=== PATIENT | male | born 1950 | race Caucasian/White ===

== ENCOUNTER 2023-10-11 11:48 | Outpatient (CLI) | payer MEDICARE, SELFPAY ==
[2023-10-11 12:25] LABS: Basophils Absolute Auto 0.1 K/mm3 (0.0-0.1); Basophils Percent Auto 0.8 % (0.2-1.2); Eosinophils Absolute Auto 0.2 K/mm3 (0-0.3); Eosinophils Percent Auto 1.8 % (0-4.4); Hematocrit 29.5 % (42.0-52.0); Hemoglobin 8.5 g/dL (14.0-18.0); Immature Granulocyte Absolute 0.05 K/mm3 (0.00-0.031); Immature Granulocyte Percent A 0.6 % (0-0.5); Lymphocytes Absolute Auto 1.59 K/mm3 (0.9-3.2); Lymphocytes Percent Auto 18.4 % (18.3-44.2); Mean Corpuscular HGB Conc 28.8 g/dl (32-36); Mean Corpuscular Hemoglobin 19.8 pg (26-34); Mean Corpuscular Volume 68.6 fl (80-100); Mean Platelet Volume 8.5 fl (7.4-10.4); Monocytes Absolute Auto 1.1 K/mm3 (0.1-0.6); Monocytes Percent Auto 12.9 % (2.6-8.5); Neutrophils Absolute Auto 5.7 K/mm3 (1.3-6.7); Neutrophils Percent Auto 65.5 % (45.5-73.1); Platelet Count Result 379 k/mm3 (150-375); Red Cell Distribution Width 17.4 % (11.5-14.5); White Blood Count 8.7 K/mm3 (4.5-10.0)
[2023-10-11 12:54] LABS: Alanine Aminotransferase 41 U/L (6-50); Albumin Level 3.9 g/dL (3.5-5.1); Alkaline Phosphatase 56 U/L (38-126); Anion Gap 6 mmol/L (8-16); Aspartate Amino Transferase 93 U/L (17-59); Bilirubin,Total 0.7 mg/dL (0.2-1.3); Blood Urea Nitrogen 10 mg/dL (9-20); Calcium 8.5 mg/dL (8.4-10.2); Carbon Dioxide 27 mmol/L (22-30); Chloride 90 mmol/L (98-107); Cholesterol 120 mg/dL (0-200); Estimated Glomerular Filt Rate > 60; Glucose 99 mg/dL (65-110); HDL Direct 43 mg/dL; Potassium 4.1 mmol/L (3.4-5.0); Sodium 123 mmol/L (137-145); Triglycerides 44 mg/dL (<150)
[2023-10-11 13:04] LABS: LDL Cholesterol Direct 68 mg/dL
[2023-10-11 13:19] LABS: Iron 28 ug/dL (49-181)
[2023-10-11 13:28] LABS: Percent Iron Saturation 7 % (20-50)
[2023-10-11 13:39] LABS: Anisocytosis 1+ (NORMAL); Hypochromasia 1+ (NORMAL); Poikilocytosis 1+ (NORMAL); Schistocytes None Seen (NORMAL); Target Cells 1+ (NORMAL)
== END 2023-10-11 11:49 | disposition home or self-care (01) ==
PROVIDERS: PCP Family Medicine; Visit Provider Family Medicine
DX: D64.9 Anemia, unspecified (principal); I10 Essential (primary) hypertension; E78.2 Mixed hyperlipidemia; R53.1 Weakness
CPT/HCPCS: 36415; 80053; 80061; 83540; 83550; 84443; 85025

== ENCOUNTER 2023-10-12 15:06 | Outpatient (CLI) | payer MEDICARE, SELFPAY ==
[2023-10-12 16:28] LABS: Iron 57 ug/dL (49-181)
[2023-10-12 16:37] LABS: Percent Iron Saturation 14 % (20-50)
== END 2023-10-12 15:07 | disposition home or self-care (01) ==
PROVIDERS: PCP Family Medicine; Visit Provider Family Medicine
DX: D50.0 Iron deficiency anemia secondary to blood loss (chronic) (principal); D64.9 Anemia, unspecified
CPT/HCPCS: 36415; 82728; 83540; 83550

== ENCOUNTER 2023-10-14 15:15 | Inpatient (IN) | payer MEDICARE, SELFPAY ==
[2023-10-14] VITALS (7 sets, daily range): BP systolic 123–155; BP diastolic 58–98; PULSE 86–91; RESP 17–24; TEMP 36.8–36.9; O2SAT 99–100; BMI 28.6
--- NOTE | ~2023-10-14 | US_ITS ---
EXAMINATION:US venous doppler LE BI INDICATION:Positive d-dimer TECHNIQUE: Multiple grayscale, color flow and Doppler images of the right and left lower extremity de ep venous systems were obtained and reviewed. COMPARISON:No prior studies for comparison. FINDINGS: The common femoral, superficial femoral and popliteal veins demonstrate normal respiratory variation, augmentation and compressibility. Color flow is also seen within the posterior tibial, pe roneal, greater saphenous and profunda veins. IMPRESSION: 1: No lower extremity deep venous thrombosis. Reviewed, dictated and finalized at location A. ERN GRADER
--- NOTE | ~2023-10-14 | XR_ITS ---
EXAMINATION: XR chest 1V portable Exam Date/Time: 10/14/2023 15:30 DEPUTY SHERIFF/INVESTIGATOR HISTORY: SOB Comparison: None. RESULT: Lines, tubes, and devices: Electronic device over the right chest, leads terminating over the right upper chest and extending to the right neck out of the [id number]. Lungs and pleura: Moderate diffuse reticular opacities. Streaky bibasilar scar/atelectasis. Cardiomediastinal silhouette: Unremarkable. Other: No acute osseous or upper abdominal finding. IMPRESSION: Moderate initial edema. Reviewed, dictated and finalized at location K. TY SHERIFF/INVESTIGATOR IMPRESSION: Moderate initial edema.
--- NOTE | 2023-10-14 15:21 | ECG_ITS ---
Measurements Intervals [place] Rate: 92 P: 50 VT: 183 QRS: 12 QRSD: 118 T: 74 QT: 370 QTc: 460 Interpretive Statements SINUS RHYTHM POSSIBLE LEFT ATRIAL ENLARGEMENT [-0.1mV P WAVE IN V1/V2] MODERATE INTRAVENTRICULAR CONDUCTION DELAY [110+ ms QRS DURATION] ABNORMAL ECG NO PREVIOUS ECG AVAILABLE FOR COMPARISON Electronically Signed On 10-15-2023 12:39:49 VINEYARDIST by Yaw Torres M.D.
--- NOTE | 2023-10-14 15:42 | ED.SOB ---
HPI - SOB/Dyspnea General Chief Complaint: Shortness of Breath/Dyspnea Stated Complaint: SOB, anemic Time Seen by Provider: 10/14/23 15:31 History of Present Illness HPI Narrative: Patient is a 73-year-old male history of hyponatremia, peptic ulcer disease, anemia here with shortness of breath. Patient states that he has been having exertional shortness of breath for the last 4 days. He notes that it seems to be worsening and specifically noted today that when he was walking up a flight of stairs to go to a [employer] service he became quite winded. He denies any associated chest pain, nausea, diaphoresis. He does note some occasional lightheadedness when he was getting Dyspneic today. He denies any lower extremity swelling. No history of PE or DVT. No prior cardiac history. He does note that he has been struggling with a persistent cough for about the last 8 weeks after a viral illness that both him and his experienced. He does not believe that this has significantly worsened over the last 4 days. Denies any associated diarrhea or nasal congestion. Of note he additionally is concerned that his sodium may be low. He notes that he is supposed to be on his water restriction diet however he believes he has been drinking too much water recently. He is additionally requesting a repeat upper GI series because he is due for 1 outpatient. He denies any current dark stools or blood in his stool. Related Data Home Medications Medication Instructions Recorded Confirmed lisinopril 5 mg tablet 5 mg PO DAILY 09/18/23 10/12/23 tadalafil 2.5 mg tablet (Cialis) 2.5 mg PO DAILY 09/18/23 10/12/23 Allergies Allergy/AdvReac Type Severity Reaction Status Date / Time No Known Allergies Allergy Verified 10/14/23 15:46 Review of Systems Review of Systems: All systems reviewed & are unremarkable except as noted in HPI and below [facility] Past Medical History Medical History Barretts esophagus GI bleed due to NSAIDs Hydrocele Surgical History Surgical History H/O sinus surgery Hx of appendectomy S/P repair of hydrocele Family History Family History Father Lung cancer Mother Stomach cancer Social History Social History Social History: Smoking status: Never smoker Second hand tobacco smoke exposure: No Alcohol intake: current Drinks per week: 3 Substance use: never Substance use type: does not use Lack of Transportation: No Lack of Food: Never True Current Housing: I Have Housing Concerned About Future Housing: No Difficulty Paying Gas/Electric Bills: No Difficulty Paying for Meds: No Currently Unemployed: YES Education: Master's Degree or Higher Difficulty w/ Childcare or Family Care: No Living arrangements: with family Occupation/Education: retired Gender identity (if verbalized by the patient): Male Sexual Orientation (if Verbalized by the Patient): Straight or Heterosexual Exam Narrative: GENERAL: Well-appearing, well-nourished, and in no acute distress. HEAD: Normocephalic, atraumatic. EYES: PERRLA and EOMI. ENT: Nares clear. Mucous membranes moist. NECK: Supple. CHEST: Clear to auscultation. No respiratory distress. HEART: Regular rate and rhythm. Normal peripheral pulses. ABDOMEN: Soft, nontender, nondistended. EXTREMITIES: Normal range of motion. No edema. SKIN: Warm, dry, no rash. NEURO: No focal deficits. Alert and oriented x3. PSYCH: Normal mood and affect. Course Course Emergency Course: Chart review performed. He is here for SOB x 4 days. He had an office visit with his PCP on 10/12/23. They noted history of hyponatremia, anemia. He had a hospitalization in August in [place] for anemia and NSAID induced gastric
[2023-10-14 15:51] LABS: Basophils Absolute Auto 0.1 K/mm3 (0.0-0.1); Eosinophils Absolute Auto 0.1 K/mm3 (0-0.3); Eosinophils Percent Auto 1.6 % (0-4.4); Hemoglobin 8.3 g/dL (14.0-18.0); Immature Granulocyte Absolute 0.03 K/mm3 (0.00-0.031); Immature Granulocyte Percent A 0.4 % (0-0.5); Lymphocytes Absolute Auto 1.58 K/mm3 (0.9-3.2); Lymphocytes Percent Auto 21.7 % (18.3-44.2); Mean Corpuscular HGB Conc 28.6 g/dl (32-36); Mean Corpuscular Hemoglobin 19.9 pg (26-34); Mean Corpuscular Volume 69.4 fl (80-100); Mean Platelet Volume 8.5 fl (7.4-10.4); Monocytes Percent Auto 13.9 % (2.6-8.5); Neutrophils Absolute Auto 4.5 K/mm3 (1.3-6.7); Neutrophils Percent Auto 61.4 % (45.5-73.1); Platelet Count Result 369 k/mm3 (150-375); Red Blood Count 4.18 M/mm3 (4.6-6.20); Red Cell Distribution Width 18.2 % (11.5-14.5); White Blood Count 7.3 K/mm3 (4.5-10.0)
[2023-10-14 16:01] LABS: Alanine Aminotransferase 32 U/L (6-50); Albumin Level 3.9 g/dL (3.5-5.1); Alkaline Phosphatase 51 U/L (38-126); Anion Gap 8 mmol/L (8-16); Aspartate Amino Transferase 43 U/L (17-59); Bilirubin,Total 0.5 mg/dL (0.2-1.3); Blood Urea Nitrogen 14 mg/dL (9-20); Calcium 8.6 mg/dL (8.4-10.2); Carbon Dioxide 24 mmol/L (22-30); Chloride 100 mmol/L (98-107); Estimated CRCL calculation 63 ml/min; Estimated Glomerular Filt Rate > 60; Glucose 121 mg/dL (65-110); Potassium 3.9 mmol/L (3.4-5.0); Sodium 132 mmol/L (137-145)
[2023-10-14 16:33] LABS: Anisocytosis 2+ (NORMAL); Hypochromasia 1+ (NORMAL); Platelet Estimate Adequate (Adequate); Schistocytes None Seen (NORMAL)
[2023-10-14 16:39] LABS: NT Pro B Type Natriuretic Pept 1040 pg/mL (19.9-100); Troponin I 0.041 ng/mL (0.000-0.034)
[2023-10-14] MEDS: ASPIRIN 81 MG CHEWABLE TABLET 324 MG PO (17:10)
[2023-10-14 17:24] LABS: Influenza A QL RT-PCR Negative (Negative); Influenza B QL RT-PCR Negative (Negative); RSV RNA, RT-PCR Negative (Negative); SARS-CoV-2 RNA PCR Negative (Negative)
[2023-10-14 17:56] LABS: D Dimer 0.75 ug/mL (<0.48)
--- NOTE | 2023-10-14 18:56 | ECG_ITS ---
Measurements Intervals [place] Rate: 83 P: 44 KS: 179 QRS: 6 QRSD: 113 T: 61 QT: 383 QTc: 452 Interpretive Statements SINUS RHYTHM POSSIBLE LEFT ATRIAL ENLARGEMENT [-0.1mV P WAVE IN V1/V2] MODERATE INTRAVENTRICULAR CONDUCTION DELAY [110+ ms QRS DURATION] ABNORMAL ECG COMPARED TO ECG 10/14/2023 15:27:30 NO SIGNIFICANT CHANGES Electronically Signed On 10-15-2023 12:43:22 DEAN by Yaw Torres M.D.
--- NOTE | 2023-10-14 19:16 | PC.NURSE ---
Assumed care of pt from JAMSHID Barber at this time.
[2023-10-14 19:40] LABS: Troponin I 0.043 ng/mL (0.000-0.034)
--- NOTE | 2023-10-14 21:31 | ADMGEN ---
This patient, Héctor Mary, was admitted to IMU Room 206-02. Patient/family oriented to hospital policies and general routines including ID bracelet, bed and alarms, visiting hours, pain management, procedures, bathroom and other care routines, personal items, smoking policy, room service/diet, and visiting hours. Information on how to activate the Rapid Response Team has been discussed. Patient/Family are encouraged to report perceived risks to care and to ask questions if they do not understand what they are told or what they should do.
--- NOTE | 2023-10-14 23:11 | PM.IMHP ---
H&P: HPI History of Present Illness Date/Time: 10/14/23 23:11 Chief Complaint: Shortness of breath Narrative: This is a 73-year-old male with past medical history significant for peptic ulcer, hyponatremia, Mederos's esophagus, NSAID use, GI bleed. Patient presents to the emergency room due to shortness of breath with activity, a states that he is very healthy drinks 2 gal of water daily and takes fiber with his meals to induce loose stools. Has had hyponatremia in the past which has been monitor by his primary care physician. Patient with recent workup for GI bleed. Preliminary workup was significant for hemoglobin of 8. Patient denies any hematemesis, coffee-ground emesis, melena, bright red blood per rectum. Preliminary workup was also significant for some mild elevation of troponins. Patient is been placed in observation for further evaluation management and treatment. EXAMINATION:? XR chest 1V portable Exam Date/Time:? 10/14/2023 15:30 NETWORK/TELECOM ENGINEER HISTORY: SOB ? Comparison:? None. RESULT: Lines, tubes, and devices:? Electronic device over the right chest, leads terminating over the right upper chest and extending to the right neck out of the [id number]. Lungs and pleura:? Moderate diffuse reticular opacities. Streaky bibasilar scar/atelectasis. Cardiomediastinal silhouette:? Unremarkable. Other:? No acute osseous or upper abdominal finding. ? IMPRESSION: Moderate initial edema. Review of Systems Review of Systems: Shortness of breath Constitutional: Constitutional: Denies chills, Reports fatigue, Denies fever(s), Denies frequent falls, Denies malaise, Denies poor appetite and Reports weakness Eyes: Eyes: Denies change in vision ENT: Denies dysphagia and Denies odynophagia Cardiovascular: Cardiovascular: Denies chest pain, Denies radiating jaw, neck or arm pain, Denies palpitations and Reports dyspnea Respiratory: Respiratory: Denies cough Gastrointestinal: Gastrointestinal: Denies abdominal pain, Denies dyspepsia, Reports loose stools, Denies nausea and Denies vomiting Genitourinary: Genitourinary: Denies dysuria Musculoskeletal: Musculoskeletal: Denies arthralgias and Denies limited range of motion Integumentary/Breasts: Skin/Breast: Denies rash Neurologic: Denies focal weakness and Denies Sensory deficit (Neuro) Psychiatric: Psychiatric: Reports no additional psychiatric complaints and Reports as per HPI Endocrine: Endocrine: Denies cold intolerance, Denies fatigue, Denies flushing, Denies heat intolerance, Denies polyphagia, Denies polydipsia and Denies palpitations Hematologic/Lymphatic: Hematologic/Lymphatic: Reports no additional hematologic/lymphatic complaints and Reports as per HPI Allergic/Immunologic: Allergic/Immunologic: Reports no additional allergic/immunologic complaints and Reports as per HPI PMFSH Past Medical History Medical History Barretts esophagus GI bleed due to NSAIDs Hydrocele Surgical History Surgical History H/O sinus surgery Hx of appendectomy S/P repair of hydrocele Family History Family History (Updated 10/14/23 @ 22:12 by Lilliana Jackson RN) Father Lung cancer Heart attack Mother Stomach cancer Social History Social History Social History: Smoking packs per day: 2 Smoking cigarettes per day: 40.0 Years smoked: 16 Smoking pack-years: 32.00 Smoking status: Former smoker Tobacco type: cigarettes Second hand tobacco smoke exposure: No Alcohol intake: current Drinks per week: 5 Substance use: never Substance use type: does not use Lack of Transportation: No Lack of Food: Never True Current Housing: I Have Housing Concerned About Future Housing: No Difficulty Paying Gas/Electric Bills: No Difficulty Paying for Meds: No
[2023-10-15] VITALS (15 sets, daily range): BP systolic 115–143; BP diastolic 59–74; PULSE 78–95; RESP 16–20; TEMP 36.4–36.9; O2SAT 97–98
--- NOTE | 2023-10-15 | ECHO_ITS ---
Patient Info Name: Héctor Mary Age: 73 years : 1950 Gender: Male Ht: 66 in Wt: 177 lbs BSA: 1.95 m2 HR: 83 bpm BP: 126 / 66 mmHg Heart Rhythm: Sinus Rhythm Technical Quality: Fair Exam Date: 10/15/2023 8:14 AM Exam Location: Echo Lab Patient Status: Inpatient Admit Date: 10/14/2023 Staff Ordering Physician: Delroy Medrano MD Coremaker Experimental: Gillian Ashraf RDCS Attending Provider: Gordo Watkins MD Referring Physician: Marcela DE LOS SANTOS; Exam Type: CA echo doppler color flow Study Info Indications - ELEVATED BNP Complete two-dimensional, color flow and Doppler transthoracic echocardiogram is performed. Summary 1. Complete two-dimensional, color flow and Doppler transthoracic echocardiogram is performed. 2. Left ventricular systolic function is moderately reduced, estimated at 40%. 3. Left ventricular chamber dimension is mildly enlarged. 4. There is mildly increased left ventricular wall thickness. 5. The left ventricular diastolic function is abnormal. 6. Left atrial chamber dimension is mildly enlarged. 7. There is mild aortic valve regurgitation. 8. There is mild aortic valve calcification. 9. There is mild mitral valve regurgitation. 10. There is mild tricuspid valve regurgitation. Left Ventricle Left ventricular systolic function is moderately reduced, estimated at 40%. Left ventricular chamber dimension is mildly enlarged. There is mildly increased left ventricular wall thickness. The left ventricular diastolic function is abnormal. Right Ventricle Right ventricular chamber dimension is normal. Right ventricular systolic function is normal. Left Atria Left atrial chamber dimension is mildly enlarged. Right Atria Right atrial chamber dimension is normal. Atrial Septum Intact interatrial septum visualized by color flow imaging. Aortic Valve The aortic valve is trileaflet. There is mild aortic valve sclerosis. There is no aortic valve stenosis. There is mild aortic valve regurgitation. There is mild aortic valve calcification. Pulmonic Valve The pulmonic valve is normal. There is no pulmonic valve stenosis. There is trace pulmonic regurgitation. Mitral Valve The mitral valve has thickened leaflets. There is no mitral valve stenosis. There is mild mitral valve regurgitation. Tricuspid Valve The tricuspid valve leaflets are normal. There is no significant tricuspid valve stenosis. There is mild tricuspid valve regurgitation. No pulmonary hypertension, estimated pulmonary arterial systolic pressure is 28 mmHg. Pericardium/Pleural There is trivial pericardial effusion. Inferior Vena Cava Normal inferior vena cava with <50% collapse upon inspiration consistent with elevated right atrial pressure, 10 mmHg. Aorta The aortic root size at the sinus of Valsalva is normal. Left Ventricular Outflow Tract Name Value Normal LVOT 2D LVOT Diameter 2.2 cm LVOT Doppler LVOT Peak Gradient 3 mmHg LVOT Mean Gradient 1 mmHg LVOT VTI 15 cm LVOT VTI/AV VTI Ratio 0.6 LVOT Stroke Volume 57 ml
[2023-10-15 01:29] LABS: Troponin I 0.049 ng/mL (0.000-0.034)
[2023-10-15] MEDS: traZODone HCL 50 MG TABLET PO ×2 (02:52→20:33)
[2023-10-15 08:08] LABS: Anion Gap 6 mmol/L (8-16); Blood Urea Nitrogen 15 mg/dL (9-20); Calcium 8.7 mg/dL (8.4-10.2); Carbon Dioxide 25 mmol/L (22-30); Chloride 101 mmol/L (98-107); Estimated CRCL calculation 59 ml/min; Estimated Glomerular Filt Rate > 60; Glucose 92 mg/dL (65-110); Potassium 4.1 mmol/L (3.4-5.0); Sodium 132 mmol/L (137-145)
[2023-10-15] MEDS: PANTOPRAZOLE 40 MG TABLET PO (09:17)
--- NOTE | 2023-10-15 14:05 | PM.IMPN ---
Progress Note: A&P Assessment and Plan (1) New onset of congestive heart failure: Code(s): I50.9 - Heart failure, unspecified Status: Acute Assessment and Plan: Patient presents with SOB. CXR showing pulmonary edema. BNP 1040. TSH normal. Troponin mildly elevated but flat and had past stress test that was normal No Lasix given. Echo showing EF 40% with diastolic dysfunction. Etiology unclear: viral? coronary disease? chronic anemia? Start Lasix. Cardiology consult. Start entresto and metoprolol (2) Elevated troponin: Code(s): R79.89 - Other specified abnormal findings of blood chemistry Status: Acute Assessment and Plan: Mildly elevated Troponin and flat. EKG showing NSR, possible LAE and moderate IVCD. Obtain copy of old stress test (3) Anemia: Qualifiers: Anemia type: iron deficiency Iron deficiency anemia type: chronic blood loss Qualified Code(s): D50.0 - Iron deficiency anemia secondary to blood loss (chronic) Code(s): D64.9 - Anemia, unspecified Status: Acute Assessment and Plan: Patient with history of peptic ulcer and GI bleed in the past. Hgb 8.5 a few days ago and about the same on admission. No prior HH to compare Unclear if chronic stable anemia or Hgb dropping recently. He has hx of PUD but compliant with PPI. Iron studies 10/11 showing low iron, TSat and ferritin. Repeat HH today. Continue iron supplement. Check b12/folate GI consulted (4) D-dimer, elevated: Code(s): R79.89 - Other specified abnormal findings of blood chemistry Status: Acute Assessment and Plan: DDimer ordered and was elevated. No further workup performed. Will proceed with doppler of the LE and consider CTA but more likely diagnosis is CHF (5) Hyponatremia: Code(s): E87.1 - Hypo-osmolality and hyponatremia Status: Acute Assessment and Plan: Na 123 a few days ago but now 132 on admission. He is on NaCl tablets per family Could be related to the CHF Check urine Na and Cr Hold on resuming NaCl tablets (6) PUD (peptic ulcer disease): Code(s): K27.9 - Peptic ulcer, site unspecified, unspecified as acute or chronic, without hemorrhage or perforation Status: Acute Assessment and Plan: hx of PUD. Continue PPI (7) Barretts esophagus: Qualifiers: Mederos's esophagus type: without dysplasia Qualified Code(s): K22.70 - Mederos's esophagus without dysplasia Code(s): K22.70 - Mederos's esophagus without dysplasia Status: Acute Assessment and Plan: Follow-up with GI in the outpatient setting Plan DVT Prophylaxis - SCD Code status - Full Subjective Date/time seen: 10/15/23 14:05 Interval history: 73yo male with hx of PUD, hyponatremia and Mederos's esophagus here for SOB. He denies CP or SOB. Having MERCEDES. No hx of CAD or CHF. No weight changes. Stress test and echo normal within last 2 years. Stools dark from iron but no hematochezia. Exam Narrative: AF 98.1 143/74 86 20 97% ra Gen - NARD Chest - bibasilar crackles. nml RR CV - RRR S1/S2 Abd - Soft, NT/ND, Positive BS Ext - trace pedal edema Psych - Nml mood and affect Skin - Warm and dry Objective Data Vital Signs Vital Signs: Vital Signs - 24 hr 10/14/23 15:24 10/14/23 15:41 10/14/23 15:41 Temperature 98.2 F Pulse Rate 91 91 Respiratory Rate 17 Blood Pressure 155/87 H Pulse Oximetry 100 100 Oxygen Delivery Room Air 10/14/23 15:41 10/14/23 17:44 10/14/23 18:11 Temperature Pulse Rate 87 86 90 Respiratory Rate 19 19 20 Blood Pressure 133/76 150/98 H 152/91 H Pulse Oximetry 99 100 99 Oxygen Delivery 10/14/23 19:45 10/14/23 21:29 10/14/23 22:00 Temperature 98.4 F Pulse Rate 86 88 87 Respiratory Rate 24 H 18 Blood Pressure 135/84 123/58 L Pulse Oximetry 100 99 Oxygen Delivery 10/14/23 22:00 10/15/23 00:00 10/15/23 00:00 Tem
--- NOTE | 2023-10-15 14:34 | WPDGICN ---
Assessment and Plan Assessment and plan (1) Acute anemia: Code(s): D64.9 - Anemia, unspecified Status: Acute Assessment and Plan: acute on chronic anemia, he says that 1.5 month also required blood transfusion (hgb 6.8) after found to have gastric ulcers, he says that had colonoscopy 6 months ago continue with daily ppi and will do EGD in am to reassess (2) New onset of congestive heart failure: Code(s): I50.9 - Heart failure, unspecified Status: Acute Assessment and Plan: by primary, also due to anemia on medical treatment (3) PUD (peptic ulcer disease): Code(s): K27.9 - Peptic ulcer, site unspecified, unspecified as acute or chronic, without hemorrhage or perforation Status: Acute Assessment and Plan: PPI, no nsaid's egd in am (4) Hyponatremia: Code(s): E87.1 - Hypo-osmolality and hyponatremia Status: Acute Assessment and Plan: monitoring, stable (5) Elevated troponin: Code(s): R79.89 - Other specified abnormal findings of blood chemistry Status: Acute (6) Barretts esophagus: Qualifiers: Mederos's esophagus type: without dysplasia Qualified Code(s): K22.70 - Mederos's esophagus without dysplasia Code(s): K22.70 - Mederos's esophagus without dysplasia Status: Acute Assessment and Plan: egd GI Consult Note Consult date/time: 10/15/23 14:34 Reason for consult: acute on chronic anemia, gastric ulcers HPI: Héctor Mary is a 73 year old male with history significant for peptic ulcer 1.5 month ago (he had EGD at another hospital after generalized weakness and hypotension, found to have gastric ulcers, also required blood transfusion and has been using nexium), hyponatremia, Mederos's esophagus. He came to the emergency room due progressive shortness of breath with activity, also some leg swelling. Hgb here 8, nad 132, bnp 1000, CXR with some edema and diagnosed with new onset CHF and mild elevated troponin. He denies obvious GIB, no abdominal pain. Had colonoscopy about 6 months ago and was told to come back after 3 years (mother h/o gastric cancer). Review of Systems Constitutional: Constitutional: Reports fatigue Eyes: Eyes: Denies blurry vision ENT: Reports Normal hearing present Cardiovascular: Cardiovascular: Denies chest pain and Reports pedal edema Respiratory: Respiratory: Reports dyspnea on exertion Gastrointestinal: Gastrointestinal: Denies abdominal pain and Denies nausea Genitourinary: Genitourinary: Denies hematuria Musculoskeletal: Musculoskeletal: Denies neck pain Integumentary/Breasts: Skin/Breast: Denies rash Neurologic: Denies Abnormal speech present Psychiatric: Psychiatric: Denies behavioral changes [facility] Past Medical History Medical History Barretts esophagus GI bleed due to NSAIDs Hydrocele Surgical History Surgical History H/O sinus surgery Hx of appendectomy S/P repair of hydrocele Family History Family History (Updated 10/14/23 @ 22:12 by Lilliana Jackson RN) Father Lung cancer Heart attack Mother Stomach cancer Social History Social History Social History: Smoking packs per day: 2 Smoking cigarettes per day: 40.0 Years smoked: 16 Smoking pack-years: 32.00 Smoking status: Former smoker Tobacco type: cigarettes Second hand tobacco smoke exposure: No Alcohol intake: current Drinks per week: 5 Substance use: never Substance use type: does not use Lack of Transportation: No Lack of Food: Never True Current Housing: I Have Housing Concerned About Future Housing: No Difficulty Paying Gas/Electric Bills: No Difficulty Paying for Meds: No Currently Unemployed: No Education: Master's Degree or Higher Difficulty w/ C
[2023-10-15] MEDS: FUROSEMIDE INJ 40 MG/4 ML VIAL 20 MG IV PUSH (16:05)
--- NOTE | 2023-10-15 16:44 | PM.CNCAR ---
Assessment and Plan Assessment and plan (1) Left ventricular dysfunction with reduced left ventricular function: Code(s): I51.89 - Other ill-defined heart diseases Status: Acute Plan This is a 73-year-old man with longstanding hypertension had previously done an BRYAN-inhibitor. He recently developed significant anemia presumably from gastric ulcer disease been placed on appropriate medical therapy he still is experiencing shortness of breath and was hospitalized for further evaluation. He still is significantly anemic which certainly could explain exertional dyspnea. He is not in any overt decompensated heart failure at this time by physical exam. Echocardiogram does demonstrate some LV enlargement and moderate systolic dysfunction. He has been started on Entresto for this. To complete guideline directed medical therapy I will transition his beta-josiah to metoprolol succinate and start spironolactone. At this point I do not wish to pursue an ischemic evaluation since he is significantly anemic and that appears to be the principal problem at this time. He did indicate that [place] [facility] [facility] had him do a Lexiscan nuclear stress test approximately a year ago which was by his recollection unremarkable. Will follow him with you in the hospital and after discharge to assess his response to medical therapy and once his anemia is recovered we will consider whether or not recurrent ischemia evaluation is indicated. Channing Tyler MD [facility] History of Present Illness History of Present Illness Consult date/time: 10/15/23 16:44 Reason For Visit: New Onset CHF/Elevated Troponin Narrative: This is a 73 old man that I am seeing this evening at the request of the hospitalist because of left ventricular systolic dysfunction. The patient is unknown to me prior to this encounter he recently became established with medical care here having moved here from the [facility]. Apparently he has a history of hypertension but otherwise no specific cardiac problems. He says for a number of years his hypertension has been managed with lisinopril with good control. He states that recently in August he was hospitalized up in the [place] area at [facility] with symptomatic anemia and the diagnosis was gastric ulcer disease with relatively severe anemia. He did receive a red cell transfusion and was placed on proton pump inhibitor therapy. . He recently moved to the [facility] and became established with primary care here. He was told on Sunday that he was still significantly anemic and over the weekend he came into the hospital because of persistent exertional shortness of breath. He is not having any chest pain orthopnea PND or edema. His hemoglobin here is still low at 8.3 with microcytic indices. He does not notice any overt bleeding. He was seen by Gastroenterology life skills consultant was planning on follow-up upper endoscopy tomorrow. An echocardiogram was done in this setting which demonstrated modest LV enlargement with moderate systolic dysfunction with an ejection fraction of 40%. Because of that I was asked to see him in consultation. Review of Systems Constitutional: Constitutional: Reports no additional constitutional complaints Eyes: Eyes: Reports no additional eye complaints ENT: Reports system reviewed and no additional complaints, except as documented Cardiovascular: Cardiovascular: Reports as per HPI Respiratory: Respiratory: Reports dyspnea on exertion Gastrointestinal: Gastrointestinal: Reports no additional gastrointestinal complaints Musculoskeletal: Musculoskeletal: Reports no additional musculoskeletal complaints Integumentary/Breasts: Skin/Breast: Reports system reviewed and no additional complaints, except as docu Neurologic: Reports system reviewed and no additional complaints, except as documented Endocrine: Endocrine: Reports no additional endocrine c
[2023-10-15 17:23] LABS: Sodium Urine Random 127 meq/L
[2023-10-15] MEDS: FUROSEMIDE INJ 40 MG/4 ML VIAL IV PUSH (18:15)
[2023-10-15] MEDS: SACUBITRIL/VALSARTAN 24-26 MG TABLET 1 TAB PO (20:32)
[2023-10-15] MEDS: ACETAMINOPHEN 325 MG TABLET 650 MG PO (20:33)
[2023-10-15 21:12] LABS: Hematocrit 32.8 % (42.0-52.0); Hemoglobin 9.3 g/dL (14.0-18.0)
[2023-10-15 23:06] LABS: Folic Acid 18.9 ng/mL (2.76->20)
[2023-10-16] VITALS (21 sets, daily range): BP systolic 74–127; BP diastolic 42–81; PULSE 68–92; RESP 16–18; TEMP 36.3–37.2; O2SAT 95–100
[2023-10-16 05:41] LABS: Basophils Absolute Auto 0.1 K/mm3 (0.0-0.1); Basophils Percent Auto 1.2 % (0.2-1.2); Eosinophils Absolute Auto 0.2 K/mm3 (0-0.3); Eosinophils Percent Auto 2.3 % (0-4.4); Hematocrit 30.4 % (42.0-52.0); Hemoglobin 8.8 g/dL (14.0-18.0); Immature Granulocyte Absolute 0.03 K/mm3 (0.00-0.031); Immature Granulocyte Percent A 0.4 % (0-0.5); Lymphocytes Absolute Auto 1.72 K/mm3 (0.9-3.2); Lymphocytes Percent Auto 25.2 % (18.3-44.2); Mean Corpuscular HGB Conc 28.9 g/dl (32-36); Mean Corpuscular Hemoglobin 20.2 pg (26-34); Mean Corpuscular Volume 69.7 fl (80-100); Mean Platelet Volume 9.2 fl (7.4-10.4); Monocytes Absolute Auto 1.1 K/mm3 (0.1-0.6); Monocytes Percent Auto 16.3 % (2.6-8.5); Neutrophils Absolute Auto 3.7 K/mm3 (1.3-6.7); Neutrophils Percent Auto 54.6 % (45.5-73.1); Platelet Count Result 427 k/mm3 (150-375); Red Blood Count 4.36 M/mm3 (4.6-6.20); Red Cell Distribution Width 18.5 % (11.5-14.5); White Blood Count 6.8 K/mm3 (4.5-10.0)
[2023-10-16 05:54] LABS: Alanine Aminotransferase 27 U/L (6-50); Albumin Level 3.8 g/dL (3.5-5.1); Alkaline Phosphatase 55 U/L (38-126); Anion Gap 8 mmol/L (8-16); Aspartate Amino Transferase 36 U/L (17-59); Bilirubin,Total 0.6 mg/dL (0.2-1.3); Blood Urea Nitrogen 15 mg/dL (9-20); Calcium 8.5 mg/dL (8.4-10.2); Carbon Dioxide 26 mmol/L (22-30); Chloride 98 mmol/L (98-107); Estimated CRCL calculation 59 ml/min; Estimated Glomerular Filt Rate > 60; Glucose 97 mg/dL (65-110); Magnesium 2.1 mg/dL (1.6-2.3); Phosphorus 3.8 mg/dL (2.5-4.5); Potassium 3.4 mmol/L (3.4-5.0); Sodium 132 mmol/L (137-145)
[2023-10-16 06:10] LABS: Platelet Estimate Increased (Adequate)
[2023-10-16 06:11] LABS: Anisocytosis 1+ (NORMAL); Hypochromasia 1+ (NORMAL); Ovalocytes 1+ (NORMAL); Poikilocytosis 1+ (NORMAL); Schistocytes None Seen (NORMAL)
--- NOTE | 2023-10-16 09:32 | P.CDI_ITS ---
CDI Query Clarification Request CHF noted in the assessment and plan. Pulmonary edema noted on the chest xray. Patient receiving Lasix, Entresto and Metoprolol. Edema noted in the documentation. Please specify type and acuity of heart failure if known. * Acute * Chronic * Acute on Chronic * Unknown * Systolic * Diastolic * Combined Systolic and Diastolic * Unknown
--- NOTE | 2023-10-16 09:32 | WPDCDIQUERY2 ---
CDI Query Clarification Request CHF noted in the assessment and plan. Pulmonary edema noted on the chest xray. Patient receiving Lasix, Entresto and Metoprolol. Edema noted in the documentation. Please specify type and acuity of heart failure if known. Acute Chronic Acute on Chronic Unknown Systolic Diastolic Combined Systolic and Diastolic Unknown
[2023-10-16] MEDS: FERROUS SULFATE 325 MG TABLET DR PO (10:30)
[2023-10-16] MEDS: SPIRONOLACTONE 25 MG TABLET PO (10:30)
[2023-10-16] MEDS: PANTOPRAZOLE 40 MG TABLET PO (10:30)
[2023-10-16] MEDS: POTASSIUM CHLORIDE 20 MEQ ER TABLET 40 MEQ PO (10:30)
[2023-10-16] MEDS: EMPAGLIFLOZIN 10 MG TABLET PO (10:30)
[2023-10-16] MEDS: SACUBITRIL/VALSARTAN 24-26 MG TABLET 1 TAB PO ×2 (10:30→20:53)
[2023-10-16] MEDS: METOPROLOL SUCCINATE EXT REL 25 MG TABCR PO (10:31)
[2023-10-16] MEDS: FUROSEMIDE INJ 40 MG/4 ML VIAL IV PUSH ×2 (10:31→16:47)
[2023-10-16] MEDS: ACETAMINOPHEN 325 MG TABLET 650 MG PO ×2 (10:35→18:50)
[2023-10-16] MEDS: FLUTICASONE PROPIONATE 0.05% NA SPR 16 GM BTL (*BKC) 2 SPRAY NASAL (12:21)
[2023-10-16] MEDS: LACTATED RINGERS 1,000 ML 150 ML IV CONT (12:49)
--- NOTE | 2023-10-16 13:27 | WPDANESEPPF ---
Anes - Initial Pre Proc Eval Procedure: Operation Date: 10/16/23 14:00 Proposed Procedures p Esophagogastroduodenoscopy - Andre Bardales MD Date/Time: 10/16/23 13:27 Surgeon: Quan Watkins MD Pre Op Diagnosis: New Onset CHF/Elevated Troponin Patient Data Age: 73 Gender: M Height: 1.68 m Weight: 79.5 kg Last Vital Signs Temp 97.5 F L 10/16/23 12:48 Pulse 78 10/16/23 12:48 Resp 18 10/16/23 12:48 BP 111/81 10/16/23 12:48 Pulse Ox 99 10/16/23 12:48 O2 Del Method Room Air 10/16/23 12:48 Allergies Allergy/AdvReac Type Severity Reaction Status Date / Time No Known Allergies Allergy Verified 10/14/23 15:46 Home Medications Medication Instructions Recorded Confirmed Type tadalafil 2.5 mg tablet (Cialis) 2.5 mg PO HS 09/18/23 10/15/23 History esomeprazole magnesium 40 mg 40 mg PO DAILY 10/14/23 10/14/23 History capsule,delayed release (Nexium) ferrous sulfate 325 mg (65 mg 325 mg PO BID 10/15/23 10/15/23 History iron) tablet sodium chloride 1,000 mg soluble 2,000 mg BID 10/15/23 10/15/23 History tablet Laboratory Tests 10/15/23 10/15/23 10/16/23 17:03 20:27 04:59 WBC 6.8 K/mm3 (4.5-10.0) RBC 4.36 L M/mm3 (4.6-6.20) Hgb 9.3 L g/dL 8.8 L g/dL (14.0-18.0) (14.0-18.0) Hct 32.8 L % 30.4 L % (42.0-52.0) (42.0-52.0) MCV 69.7 L fl (80-100) MCH 20.2 L pg (26-34) MCHC 28.9 L g/dl (32-36) RDW 18.5 H % (11.5-14.5) Plt Count 427 H k/mm3 (150-375) MPV 9.2 fl (7.4-10.4) Immature Gran % (Auto) 0.4 % (0-0.5) Neut % (Auto) 54.6 % (45.5-73.1) Lymph % (Auto) 25.2 % (18.3-44.2) [place] % (Auto) 16.3 H % (2.6-8.5) Eos % (Auto) 2.3 % (0-4.4) Baso % (Auto) 1.2 % (0.2-1.2) Lymph # (Auto) 1.72 K/mm3 (0.9-3.2) [place] # (Auto) 1.1 H K/mm3 (0.1-0.6) Eos # (Auto) 0.2 K/mm3 (0-0.3) Baso # (Auto) 0.1 K/mm3 (0.0-0.1) Abs Immat Gran (auto) 0.03 K/mm3 (0.00-0.031) Absolute Neuts (auto) 3.7 K/mm3 (1.3-6.7) Absolute Nucleated RBC 0.0 K/mm3 (0.0-0.012) Nucleated RBC % 0.0 % (0.0-0.2) Platelet Estimate Increased (Adequate) Hypochromasia 1+ (NORMAL) Poikilocytosis 1+ (NORMAL) Anisocytosis 1+ (NORMAL) Ovalocytes 1+ (NORMAL) Schistocytes None seen (NORMAL) Sodium 132 L mmol/L (137-145) Potassium 3.4 mmol/L (3.4-5.0) Chloride 98 mmol/L (98-107) Carbon Dioxide 26 mmol/L (22-30) Anion Gap 8 mmol/L (8-16) BUN 15 mg/dL (9-20) Creatinine 0.90 mg/dL (0.7-1.3) Estim Creat Clear Calc 59 ml/min Estimated GFR > 60 (59 - ) Glucose 97 mg/dL (65-110) Calcium 8.5 mg/dL (8.4-10.2) Phosphorus 3.8 mg/dL (2.5-4.5) Magnesium 2.1 mg/dL (1.6-2.3) Total Bilirubin 0.6 mg/dL (0.2-1.3) AST 36 U/L (17-59) ALT 27 U/L (6-50) Alkaline Phosphatase 55 U/L (38-126) Total Protein 6.0 L g/dL (6.3-8.2) Albumin 3.8 g/dL (3.5-5.1) Vitamin B12 610.0 pg/mL (239-931) Folate 18.9 ng/mL (2.76->20) Ur Random Sodium 127 meq/L Urine Creatinine 22.0 mg/dL Patient hx anesthesia problems: none Family hx anesthesia problems: none Results Review: All pre-operative results and documents have been reviewed as part of the pre-operative evaluation. [facility] Past Medical History Medical History Barretts esophagus GI bleed due to NSAIDs Hydrocele Surgical History Surgical History H/O sinus surgery Hx of ap
--- NOTE | 2023-10-16 17:09 | PM.IMPN ---
Progress Note: A&P Assessment and Plan (1) New onset of congestive heart failure: Code(s): I50.9 - Heart failure, unspecified Status: Acute Assessment and Plan: Patient presents with SOB. CXR showing pulmonary edema. BNP 1040. TSH normal. Troponin mildly elevated but flat and had past stress test that was normal Echo showing EF 40% with diastolic dysfunction. Etiology of CHF unclear: viral? coronary disease? chronic anemia? Patient with acute systolic and diastolic CHF. Started on lasix, Entresto, Spirolactone and metoprolol Cardiology consulted and appreciate their input Probably change to oral tomorrow. (2) Elevated troponin: Code(s): R79.89 - Other specified abnormal findings of blood chemistry Status: Acute Assessment and Plan: Mildly elevated Troponin and flat. EKG showing NSR, possible LAE and moderate IVCD. Elevated Trop related to CHF. (3) Anemia: Qualifiers: Anemia type: iron deficiency Iron deficiency anemia type: chronic blood loss Qualified Code(s): D50.0 - Iron deficiency anemia secondary to blood loss (chronic) Code(s): D64.9 - Anemia, unspecified Status: Acute Assessment and Plan: Patient with history of peptic ulcer and GI bleed in the past. Hgb 8.5 a few days ago and about the same on admission. No prior HH to compare Unclear if chronic stable anemia or Hgb dropping recently. He has hx of PUD but compliant with PPI. Iron studies 10/11 showing low iron, TSat and ferritin c/w iron deficiency anemia. GI consulted and appreciate their input EGD 10/16: moderate gastritis with erythema, edema and erosive changes. No Mederos's Hgb stable in the 8-9 range Continue iron supplement. (4) D-dimer, elevated: Code(s): R79.89 - Other specified abnormal findings of blood chemistry Status: Acute Assessment and Plan: DDimer ordered and was elevated. No further workup performed. LE venous doppler negative. Consider CTA but more likely diagnosis is CHF (5) Hyponatremia: Code(s): E87.1 - Hypo-osmolality and hyponatremia Status: Acute Assessment and Plan: Na 123 a few days ago but was 132 on admission. He is on NaCl tablets per family but on hold currently Ector 127 but was on lasix which could skew this. Hyponatremia could be related to the CHF Hold on resuming NaCl tablets Check Urine urea levels. Will order fluid restriction (6) PUD (peptic ulcer disease): Code(s): K27.9 - Peptic ulcer, site unspecified, unspecified as acute or chronic, without hemorrhage or perforation Status: Acute Assessment and Plan: hx of PUD. EGD as above Continue PPI (7) Barretts esophagus: Qualifiers: Mederos's esophagus type: without dysplasia Qualified Code(s): K22.70 - Mederos's esophagus without dysplasia Code(s): K22.70 - Mederos's esophagus without dysplasia Status: Acute Assessment and Plan: No evidence of Mederos's by EGD Plan DVT Prophylaxis - SCD Code status - Full Subjective Date/time seen: 10/16/23 17:09 Interval history: 73yo male with hx of PUD, hyponatremia and Mederos's esophagus here for SOB. No MERCEDES when walking to the bathroom. no n/v. No CP. Voiding well. Exam Narrative: AF 97.8 127/68 83 18 99% ra Gen - NARD Chest - few basilar crackles o/w clear. nml RR CV - RRR S1/S2 Abd - Soft, NT/ND, Positive BS Ext - scant pedal edema Psych - Nml mood and affect Skin - Warm and dry Objective Data Vital Signs Vital Signs: Vital Signs - 24 hr 10/15/23 19:53 10/15/23 20:00 10/15/23 22:00 Temperature 98.3 F Pulse Rate 95 90 85 Respiratory Rate 18 Blood Pressure 115/59 L Pulse Oximetry 97 Oxygen Delivery Oxygen Flow Rate 10/15/23 20:00 10/16/23 00:00 10/16/23 00:00 Temperature 98.9 F Pulse Rate 87 82 Respiratory Rate 18 Blood Pressure 119/58 L Pulse Oximetry 98 Oxygen D
[2023-10-16] MEDS: BENZONATATE 100 MG CAPSULE PO (20:53)
[2023-10-16] MEDS: traZODone HCL 50 MG TABLET PO (20:53)
[2023-10-17] VITALS (12 sets, daily range): BP systolic 108–137; BP diastolic 54–81; PULSE 73–90; RESP 18–22; TEMP 36.3–37; O2SAT 96–98
[2023-10-17 05:31] LABS: Hematocrit 38.2 % (42.0-52.0); Hemoglobin 10.9 g/dL (14.0-18.0); Mean Corpuscular HGB Conc 28.5 g/dl (32-36); Mean Platelet Volume 8.6 fl (7.4-10.4); Platelet Count Result 471 k/mm3 (150-375); Red Blood Count 5.46 M/mm3 (4.6-6.20); Red Cell Distribution Width 19.5 % (11.5-14.5); White Blood Count 8.5 K/mm3 (4.5-10.0)
[2023-10-17] MEDS: BENZONATATE 100 MG CAPSULE PO ×2 (05:37→20:56)
[2023-10-17 05:43] LABS: Anion Gap 14 mmol/L (8-16); Blood Urea Nitrogen 22 mg/dL (9-20); Calcium 9.6 mg/dL (8.4-10.2); Carbon Dioxide 25 mmol/L (22-30); Chloride 97 mmol/L (98-107); Estimated CRCL calculation 49 ml/min; Estimated Glomerular Filt Rate > 60; Glucose 109 mg/dL (65-110); Potassium 3.8 mmol/L (3.4-5.0); Sodium 136 mmol/L (137-145)
[2023-10-17] MEDS: FERROUS SULFATE 325 MG TABLET DR PO ×2 (08:32→17:33)
[2023-10-17] MEDS: FUROSEMIDE INJ 40 MG/4 ML VIAL IV PUSH (08:32)
[2023-10-17] MEDS: SPIRONOLACTONE 25 MG TABLET PO (08:32)
[2023-10-17] MEDS: ACETAMINOPHEN 325 MG TABLET 650 MG PO ×2 (08:33→17:33)
[2023-10-17] MEDS: EMPAGLIFLOZIN 10 MG TABLET PO (08:33)
[2023-10-17] MEDS: FLUTICASONE PROPIONATE 0.05% NA SPR 16 GM BTL (*BKC) 2 SPRAY NASAL (08:33)
[2023-10-17] MEDS: METOPROLOL SUCCINATE EXT REL 25 MG TABCR PO (08:33)
[2023-10-17] MEDS: SACUBITRIL/VALSARTAN 24-26 MG TABLET 1 TAB PO ×2 (08:33→20:56)
[2023-10-17] MEDS: PANTOPRAZOLE 40 MG TABLET PO (08:33)
--- NOTE | 2023-10-17 11:55 | PM.PNCARD ---
Progress Note: A&P Assessment and Plan (1) Left ventricular dysfunction with reduced left ventricular function: Code(s): I51.89 - Other ill-defined heart diseases Status: Acute Assessment and Plan: Feeling better. Blood counts have improved. Continue metoprolol, spironolactone, Entresto. Can consider adding Jardiance as an outpatient. He seems to be fairly well compensated at this point. Will reduce his furosemide down to 40 mg IV daily with hopeful ability to transition to p.o. tomorrow. (2) Chronic systolic (congestive) heart failure: Code(s): I50.22 - Chronic systolic (congestive) heart failure Status: Acute Assessment and Plan: Plan as above. Will reduce furosemide (3) Acute anemia: Code(s): D64.9 - Anemia, unspecified Status: Acute Assessment and Plan: Workup in progress. Hemoglobin has improved. (4) Elevated troponin: Code(s): R79.89 - Other specified abnormal findings of blood chemistry Status: Acute Assessment and Plan: Not related to ACS. Likely secondary to CHF Subjective Date/time seen: 10/17/23 11:55 Interval history: 73-year-old admitted for anemia and shortness breath Follow-up note 10/17/2023: Blood counts are better today. He is not short of breath at rest. No swelling. No chest pain Review of Systems Constitutional: Constitutional: Reports no additional constitutional complaints Eyes: Eyes: Reports no additional eye complaints ENT: Reports system reviewed and no additional complaints, except as documented Cardiovascular: Cardiovascular: Reports as per HPI and Reports dyspnea on exertion Respiratory: Respiratory: Reports dyspnea on exertion Gastrointestinal: Gastrointestinal: Reports no additional gastrointestinal complaints Musculoskeletal: Musculoskeletal: Reports no additional musculoskeletal complaints Integumentary/Breasts: Skin/Breast: Reports system reviewed and no additional complaints, except as docu Neurologic: Reports system reviewed and no additional complaints, except as documented Endocrine: Endocrine: Reports no additional endocrine complaints Hematologic/Lymphatic: Hematologic/Lymphatic: Reports no additional hematologic/lymphatic complaints Allergic/Immunologic: Allergic/Immunologic: Reports no additional allergic/immunologic complaints Exam Const: General: comfortable and no acute distress Other: Somewhat anxious white male appearing about his stated age no distress of any kind HENMT: Mouth: Yes moist mucous membranes Eyes: Sclera: sclerae normal Neck: Neck: supple and no JVD Resp: Effort & Inspection: normal respiratory effort Auscultation: clear to auscultation bilaterally Cardio: Rate: regular rate Rhythm: regular rhythm Other: PMI is not displaced first and second heart sounds are normal no discernible gallop or murmur GI: Auscultation: normal bowel sounds Skin: General skin exam: normal color Neuro: Other: Alert and oriented x3 Extrem: Other: No edema, good distal perfusion Psych: Mental Status: mental status grossly normal Objective Data Vital Signs Vital Signs: Vital Signs - 24 hr 10/16/23 12:48 10/16/23 12:00 10/16/23 16:00 Temperature 36.4 C L Pulse Rate 78 92 Respiratory Rate 18 Blood Pressure 111/81 Pulse Oximetry 99 99 Oxygen Delivery Room Air Room Air Oxygen Flow Rate 10/16/23 12:00 10/16/23 14:11 10/16/23 14:21 Temperature 36.4 C L Pulse Rate 78 68 74 Respiratory Rate 16 16 18 Blood Pressure 117/81 74/42 L 102/62 Pulse Oximetry 95 96 98 Oxygen Delivery Nasal Cannula Room Air Oxygen Flow Rate 4 10/16/23 14:31 10/16/23 14:48 10/16/23 16:00 Temperature 36.4 C 36.6 C Pulse Rate 70 70 83 Respiratory Rate 18 16 18 Blood Pressure 105/65 120/80 127/68 Pulse Oximetry 97 100 99 Oxygen Delivery Room Air Oxygen Flow Rate 10/16/23 16:00 10/16/23 18:00 10/16/23 20:18 [facility]
--- NOTE | 2023-10-17 14:13 | PM.IMPN ---
Progress Note: A&P Assessment and Plan (1) New onset of congestive heart failure: Code(s): I50.9 - Heart failure, unspecified Status: Acute Assessment and Plan: Patient presents with SOB. CXR showing pulmonary edema. BNP 1040. TSH normal. Troponin mildly elevated but flat and had past stress test that was normal Echo showing EF 40% with diastolic dysfunction. Etiology of CHF unclear: viral? coronary disease? chronic anemia? Patient with acute systolic and diastolic CHF. Started on lasix, Entresto, Spirolactone and metoprolol Cardiology consulted and appreciate their input Start oral lasix tomorrow (2) Elevated troponin: Code(s): R79.89 - Other specified abnormal findings of blood chemistry Status: Acute Assessment and Plan: Mildly elevated Troponin and flat. EKG showing NSR, possible LAE and moderate IVCD. Elevated Trop related to CHF. (3) Anemia: Qualifiers: Anemia type: iron deficiency Iron deficiency anemia type: chronic blood loss Qualified Code(s): D50.0 - Iron deficiency anemia secondary to blood loss (chronic) Code(s): D64.9 - Anemia, unspecified Status: Acute Assessment and Plan: Patient with history of peptic ulcer and GI bleed in the past. Hgb 8.5 a few days ago and about the same on admission. No prior HH to compare Unclear if chronic stable anemia or Hgb dropping recently. He has hx of PUD but compliant with PPI. Iron studies 10/11 showing low iron, TSat and ferritin c/w iron deficiency anemia. GI consulted and appreciate their input EGD 10/16: moderate gastritis with erythema, edema and erosive changes. No Mederos's Hgb stable in the 8-9 range Continue iron supplement. (4) D-dimer, elevated: Code(s): R79.89 - Other specified abnormal findings of blood chemistry Status: Acute Assessment and Plan: DDimer ordered and was elevated. No further workup performed. LE venous doppler negative. Consider CTA but more likely diagnosis is CHF (5) Hyponatremia: Code(s): E87.1 - Hypo-osmolality and hyponatremia Status: Acute Assessment and Plan: Na 123 a few days ago but was 132 on admission. He is on NaCl tablets per family but on hold currently Ector 127 but was on lasix which could skew this. Hyponatremia could be related to the CHF Resume NaCl tablets (6) PUD (peptic ulcer disease): Code(s): K27.9 - Peptic ulcer, site unspecified, unspecified as acute or chronic, without hemorrhage or perforation Status: Acute Assessment and Plan: hx of PUD. EGD as above Continue PPI (7) Barretts esophagus: Qualifiers: Mederos's esophagus type: without dysplasia Qualified Code(s): K22.70 - Mederos's esophagus without dysplasia Code(s): K22.70 - Mederos's esophagus without dysplasia Status: Acute Assessment and Plan: No evidence of Mederos's by EGD Plan DVT Prophylaxis - SCD Code status - Full Subjective Date/time seen: 10/17/23 14:13 Interval history: 73-year-old male with history of peptic ulcer disease, hyponatremia and Mederos's esophagus here for shortness of breath and currently being treated for heart failure exacerbation. No overnight events noted. No chest pain or shortness of breath. No nausea, vomiting or diarrhea. No fevers or chills. Review of Systems Review of Systems: 12 point review of systems was assessed and was negative except as noted in the HPI Exam Narrative: General: No acute distress, alert and oriented per baseline HEENT: Atraumatic, normocephalic, mucous membranes moist CV: Regular rate and rhythm, S1, S2 Lungs: Clear to auscultation bilaterally, no rales or crackles noted, no wheezes, good air entry Abdomen: Soft, nontender, nondistended Extremities: Normal to inspection Skin: No rashes noted, no lesions or wounds seen Psych: Euthymic, normal affect Objective Data Vit
--- NOTE | 2023-10-17 14:41 | WPDANESPN ---
Anes - Prog Note Post-Op Date/Time: 10/17/23 14:41 Cardiovascular status: normal Respiratory status: normal Airway patency: baseline Mental status: baseline Post-Op hydration status: normal Vital Signs: Last Vital Signs Temp 36.5 C 10/17/23 12:00 Pulse 73 10/17/23 12:00 Resp 18 10/17/23 12:00 BP 114/57 L 10/17/23 12:00 Pulse Ox 98 10/17/23 12:00 O2 Del Method Room Air 10/17/23 12:00 O2 Flow Rate 4 10/16/23 14:11 Pain Score (VAS): 0 I/O: Intake & Output 10/16/23 10/17/23 10/17/23 23:59 07:59 15:59 Intake Total 1190 390 720 Output Total 3750 700 600 Balance -2560 -310 120 Laboratory Tests 10/17/23 05:18 10/17/23 05:18 10/17/23 05:18 WBC 8.5 RBC 5.46 Hgb 10.9 L Hct 38.2 L MCV 70.0 L MCH 20.0 L MCHC 28.5 L RDW 19.5 H Plt Count 471 H MPV 8.6 Sodium 136 L Potassium 3.8 Chloride 97 L Carbon Dioxide 25 Anion Gap 14 BUN 22 H Creatinine 1.10 Estim Creat Clear Calc 49 Estimated GFR > 60 Glucose 109 Calcium 9.6 Post-procedural complaints: none Patient Feedback: Patient satisfied with anesthetic care.
--- NOTE | 2023-10-17 15:05 | WPDGIPROGNO ---
Progress Note: A&P Assessment and Plan (1) Gastritis: Code(s): K29.70 - Gastritis, unspecified, without bleeding Status: Acute Assessment and Plan: no signs of bleeding continue ppi daily good appetite will follow [place] (2) Acute anemia: Code(s): D64.9 - Anemia, unspecified Status: Acute Assessment and Plan: hgb stable he says that had colonoscopy earlier this year follow-up with his pcp and get cbc as outpatient (3) Left ventricular dysfunction with reduced left ventricular function: Code(s): I51.89 - Other ill-defined heart diseases Status: Acute Assessment and Plan: on medical treatment by cardiology and he says that already feeling much better asking when he could go home (4) Hyponatremia: Code(s): E87.1 - Hypo-osmolality and hyponatremia Status: Acute Subjective Date/time seen: 10/17/23 15:05 Interval history: egd showed gastritis,no signs of bleeding overall feeling much better, asking when he can go home Review of Systems Review of Systems: All systems reviewed & are unremarkable except as noted in HPI and below Exam Const: General: comfortable and no acute distress HENMT: Face/Nose/Sinus: Normal nares present Eyes: General: appearance normal, both eyes and all related structures Neck: Neck: supple Resp: Effort & Inspection: normal respiratory effort Auscultation: no wheezes Cardio: Rate: regular rate Rhythm: regular rhythm GI: Inspection: non-distended GI Palp: Yes Soft to palpation and No Tenderness to palpation present (GI) Auscultation: normal bowel sounds Skin: General skin exam: no rashes or lesions noted Neuro: Speech: normal speech Motor exam (neuro): 5/5 motor strength present throughout Extrem: General: normal to inspection Psych: Mental Status: mental status grossly normal Objective Data Vital Signs Vital Signs: Vital Signs - 24 hr 10/16/23 16:00 10/16/23 16:00 10/16/23 16:00 Temperature 97.8 F Pulse Rate 83 86 Respiratory Rate 18 Blood Pressure 127/68 Pulse Oximetry 99 99 Oxygen Delivery Room Air 10/16/23 18:00 10/16/23 20:18 10/16/23 20:00 Temperature 97.3 F L Pulse Rate 84 80 79 Respiratory Rate 18 Blood Pressure 121/64 Pulse Oximetry 96 Oxygen Delivery 10/16/23 22:00 10/16/23 23:08 10/17/23 00:00 Temperature 97.3 F L Pulse Rate 70 84 Respiratory Rate 18 Blood Pressure 126/68 Pulse Oximetry 96 Oxygen Delivery 10/17/23 02:00 10/17/23 04:13 10/17/23 04:00 Temperature 97.3 F L Pulse Rate 76 80 79 Respiratory Rate 18 Blood Pressure 116/60 Pulse Oximetry 96 Oxygen Delivery 10/17/23 06:00 10/17/23 08:00 10/17/23 12:00 Temperature 97.8 F 97.7 F Pulse Rate 74 84 73 Respiratory Rate 18 18 Blood Pressure 108/62 114/57 L Pulse Oximetry 97 98 Oxygen Delivery 10/17/23 08:00 10/17/23 12:00 10/17/23 08:00 Temperature Pulse Rate 90 Respiratory Rate Blood Pressure Pulse Oximetry 98 98 Oxygen Delivery Room Air Room Air 10/17/23 12:00 10/17/23 10:00 10/17/23 14:00 Temperature Pulse Rate 79 84 82 Respiratory Rate Blood Pressure Pulse Oximetry Oxygen Delivery Intake/Output Intake/Output: Intake & Output 10/14/23 10/15/23 10/16/23 10/17/23 23:59 23:59 23:59 23:59 Intake Total 1440 1490 1110 Output Total 2650 4590 1300 [facility] -[id number] -190 Meds/Results Medications: Active Medications Generic Name Dose Route Start Last Admin Trade Name Freq PRN Reason Stop Dose Admin Acetaminophen 650 mg 10/15/23 18:31 10/17/23 08:33 Acetaminophen 325 Mg Tablet PO 650 mg Q6H PRN Administration Mild Pain (1-3) or Fever Artificial Tears 1 drop 10/16/23 15:51 Artificial Tears Ophth Soln 15 Ml Bottle EACH EYE QID PRN Dry Eye(s) Benzonatate 100 mg 10/16/23 20:25 10/17/23 05:37 Benzonatate 100 Mg Capsule PO 100 mg Q8HR MORENA
[2023-10-17] MEDS: SODIUM CHLORIDE 1 GM TABLET 2 GM BY MOUTH (17:32)
--- NOTE | 2023-10-17 18:55 | PC.NURSE ---
Transferred from IMU per hospital bed. Belongings transferred with patient.
[2023-10-17] MEDS: traZODone HCL 50 MG TABLET PO (20:58)
[2023-10-18] VITALS: BP 139/76; PULSE 66; PULSE 82; RESP 18; TEMP 37.1; O2SAT 98
[2023-10-18 03:37] LABS: Creatinine Urine 136.8 mg/dL; Urea Random Urine 1128 MG/DL
[2023-10-18 04:00] VITALS: PULSE 76
[2023-10-18] MEDS: ACETAMINOPHEN 325 MG TABLET 650 MG PO ×2 (04:20→12:59)
[2023-10-18] MEDS: BENZONATATE 100 MG CAPSULE PO ×2 (04:21→13:00)
[2023-10-18 04:45] VITALS: BP 121/60; PULSE 75; RESP 16; TEMP 36.6; O2SAT 97
[2023-10-18 08:00] VITALS: PULSE 95
[2023-10-18] MEDS: SODIUM CHLORIDE 1 GM TABLET 2 GM BY MOUTH (09:34)
[2023-10-18] MEDS: SPIRONOLACTONE 25 MG TABLET PO (09:34)
[2023-10-18] MEDS: FUROSEMIDE 40 MG TABLET PO (09:34)
[2023-10-18] MEDS: EMPAGLIFLOZIN 10 MG TABLET PO (09:34)
[2023-10-18] MEDS: SACUBITRIL/VALSARTAN 24-26 MG TABLET 1 TAB PO (09:35)
[2023-10-18] MEDS: FLUTICASONE PROPIONATE 0.05% NA SPR 16 GM BTL (*BKC) 2 SPRAY NASAL (09:36)
[2023-10-18] MEDS: FERROUS SULFATE 325 MG TABLET DR PO (09:37)
[2023-10-18 09:39] VITALS: PULSE 90
[2023-10-18] MEDS: METOPROLOL SUCCINATE EXT REL 25 MG TABCR PO (09:39)
[2023-10-18 09:40] VITALS: BP 115/67; PULSE 90
--- NOTE | 2023-10-18 10:35 | PM.PNCARD ---
Progress Note: A&P Assessment and Plan (1) Left ventricular dysfunction with reduced left ventricular function: Code(s): I51.89 - Other ill-defined heart diseases Status: Acute Assessment and Plan: Feeling better. Blood counts have improved. Continue metoprolol, spironolactone, Entresto, Jardiance and furosemide. Continue standard GE MT and can up titrate as able as an outpatient. (2) Chronic systolic (congestive) heart failure: Code(s): I50.22 - Chronic systolic (congestive) heart failure Status: Acute Assessment and Plan: Plan as above. (3) Acute anemia: Code(s): D64.9 - Anemia, unspecified Status: Acute Assessment and Plan: Workup in progress. Hemoglobin has improved. (4) Elevated troponin: Code(s): R79.89 - Other specified abnormal findings of blood chemistry Status: Acute Assessment and Plan: Not related to ACS. Likely secondary to CHF Plan Okay for discharge from cardiac perspective and will follow-up with us in our office Subjective Date/time seen: 10/18/23 10:35 Interval history: 73-year-old admitted for anemia and shortness breath Follow-up note 10/17/2023: Blood counts are better today. He is not short of breath at rest. No swelling. No chest pain Date of service 10/18/2023: Feels well. No chest pain, shortness of breath. Review of Systems Constitutional: Constitutional: Reports no additional constitutional complaints Eyes: Eyes: Reports no additional eye complaints ENT: Reports system reviewed and no additional complaints, except as documented Cardiovascular: Cardiovascular: Reports as per HPI and Reports dyspnea on exertion Respiratory: Respiratory: Reports dyspnea on exertion Gastrointestinal: Gastrointestinal: Reports no additional gastrointestinal complaints Musculoskeletal: Musculoskeletal: Reports no additional musculoskeletal complaints Integumentary/Breasts: Skin/Breast: Reports system reviewed and no additional complaints, except as docu Neurologic: Reports system reviewed and no additional complaints, except as documented Endocrine: Endocrine: Reports no additional endocrine complaints Hematologic/Lymphatic: Hematologic/Lymphatic: Reports no additional hematologic/lymphatic complaints Allergic/Immunologic: Allergic/Immunologic: Reports no additional allergic/immunologic complaints Exam Const: General: comfortable and no acute distress Other: Somewhat anxious white male appearing about his stated age no distress of any kind HENMT: Mouth: Yes moist mucous membranes Eyes: Sclera: sclerae normal Neck: Neck: supple and no JVD Resp: Effort & Inspection: normal respiratory effort Auscultation: clear to auscultation bilaterally Cardio: Rate: regular rate Rhythm: regular rhythm Other: PMI is not displaced first and second heart sounds are normal no discernible gallop or murmur GI: Auscultation: normal bowel sounds Skin: General skin exam: normal color Neuro: Other: Alert and oriented x3 Extrem: Other: No edema, good distal perfusion Psych: Mental Status: mental status grossly normal Objective Data Vital Signs Vital Signs: Vital Signs - 24 hr 10/17/23 12:00 10/17/23 12:00 10/17/23 12:00 Temperature 36.5 C Pulse Rate 73 79 Respiratory Rate 18 Blood Pressure 114/57 L Pulse Oximetry 98 98 Oxygen Delivery Room Air 10/17/23 14:00 10/17/23 16:00 10/17/23 16:00 Temperature 36.3 C L Pulse Rate 82 82 Respiratory Rate 22 H Blood Pressure 137/81 Pulse Oximetry 98 98 Oxygen Delivery Room Air 10/17/23 16:00 10/17/23 18:55 10/17/23 20:00 Temperature Pulse Rate 85 76 76 Respiratory Rate 22 H Blood Pressure Pulse Oximetry 98 Oxygen Delivery Room Air 10/17/23 20:00 10/18/23 00:00 10/17/23 20:00 Temperature 37.0 C Pulse Rate 84 66 80 Respiratory Rate 20 Blood Pressure 121/54 L Pulse Oximetry 9
[2023-10-18] MEDS: PANTOPRAZOLE 40 MG TABLET PO (11:14)
--- NOTE | 2023-10-18 12:02 | PM.DS ---
DS: Admitting Diagnosis Discharge Date 10/18/23 Admitting Diagnosis sob DS: Discharge Diagnosis Discharge Diagnosis (1) New onset of congestive heart failure: Code(s): I50.9 - Heart failure, unspecified Status: Acute Assessment and Plan: Patient presents with SOB. CXR showing pulmonary edema. BNP 1040. TSH normal. Troponin mildly elevated but flat and had past stress test that was normal Echo showing EF 40% with diastolic dysfunction. Etiology of CHF unclear: viral? coronary disease? chronic anemia? Patient with acute systolic and diastolic CHF. Started on lasix, Entresto, Spirolactone and metoprolol Cardiology consulted and appreciate their input Start oral lasix tomorrow (2) Elevated troponin: Code(s): R79.89 - Other specified abnormal findings of blood chemistry Status: Acute Assessment and Plan: Mildly elevated Troponin and flat. EKG showing NSR, possible LAE and moderate IVCD. Elevated Trop related to CHF. (3) Anemia: Qualifiers: Anemia type: iron deficiency Iron deficiency anemia type: chronic blood loss Qualified Code(s): D50.0 - Iron deficiency anemia secondary to blood loss (chronic) Code(s): D64.9 - Anemia, unspecified Status: Acute Assessment and Plan: Patient with history of peptic ulcer and GI bleed in the past. Hgb 8.5 a few days ago and about the same on admission. No prior HH to compare Unclear if chronic stable anemia or Hgb dropping recently. He has hx of PUD but compliant with PPI. Iron studies 10/11 showing low iron, TSat and ferritin c/w iron deficiency anemia. GI consulted and appreciate their input EGD 10/16: moderate gastritis with erythema, edema and erosive changes. No Mederos's Hgb stable in the 8-9 range Continue iron supplement. (4) D-dimer, elevated: Code(s): R79.89 - Other specified abnormal findings of blood chemistry Status: Acute Assessment and Plan: DDimer ordered and was elevated. No further workup performed. LE venous doppler negative. Consider CTA but more likely diagnosis is CHF (5) Hyponatremia: Code(s): E87.1 - Hypo-osmolality and hyponatremia Status: Acute Assessment and Plan: Na 123 a few days ago but was 132 on admission. He is on NaCl tablets per family but on hold currently Ector 127 but was on lasix which could skew this. Hyponatremia could be related to the CHF Resume NaCl tablets (6) PUD (peptic ulcer disease): Code(s): K27.9 - Peptic ulcer, site unspecified, unspecified as acute or chronic, without hemorrhage or perforation Status: Acute Assessment and Plan: hx of PUD. EGD as above Continue PPI (7) Barretts esophagus: Qualifiers: Mederos's esophagus type: without dysplasia Qualified Code(s): K22.70 - Mederos's esophagus without dysplasia Code(s): K22.70 - Mederos's esophagus without dysplasia Status: Acute Assessment and Plan: No evidence of Mederos's by EGD Plan DVT Prophylaxis - SCD Code status - Full DS: Summary Hospital Course Hospital Course: 73yo male with hx of PUD, hyponatremia and?Mederos's esophagus here for SOB. Echo shows an EF of 40% with diastolic dysfunction, started on Lasix and Cardiology was consulted. He was started on metoprolol succinate as well as Aldactone. Symptoms improved and he was transitioned to oral Lasix. He will follow-up with Cardiology outpatient. Patient noted to have anemia of unknown etiology, GI was consulted. EGD performed 10/16 showing gastritis. GI recommended daily PPI and follow-up outpatient. Patient noted to have hyponatremia. This resolved prior to discharge. Please see above and med rec for details. Patient was discharged in stable condition with close outpatient follow-up. Time Spent with Patient Time attestation: Total time spent providing and/or coordinating discharge services: Exam Narrative:
== END 2023-10-18 16:05 | disposition home or self-care (01) | DRG 811 ==
LOC: ANHED 17:17 → ANHIMU 18:02 → ANH3MEDSUR 10-17 18:47
PROVIDERS: Internal Medicine; Internal Medicine Gastroenterology; Admitting Provider Internal Medicine; Emergency Provider Student in an Organized Health Care Education/Training Program; PCP Family Medicine; Visit Provider Student in an Organized Health Care Education/Training Program
PROC: 0DJ08ZZ Inspection of Upper Intestinal Tract, Via Natural or Artificial Opening Endoscopic (ICD-10-PCS; CPT 43235; principal; 2023-10-16 14:00)
DX: D50.9 Iron deficiency anemia, unspecified (principal); I50.41 Acute combined systolic (congestive) and diastolic (congestive) heart failure; E87.1 Hypo-osmolality and hyponatremia; K29.70 Gastritis, unspecified, without bleeding; K22.70 Barrett's esophagus without dysplasia; Z20.822 Contact with and (suspected) exposure to COVID-19; R79.89 Other specified abnormal findings of blood chemistry; Z87.11 Personal history of peptic ulcer disease; Z87.891 Personal history of nicotine dependence; Z90.49 Acquired absence of other specified parts of digestive tract
CPT/HCPCS: 36415; 71045; 80048; 80053; 80061; 82570; 82607; 82728; 82746; 83540; 83550; 83735; 83880; 84100; 84300; 84443; 84484; 84540; 85014; 85018; 85025; 85027; 85380; 87637; 88305; 93005; 93306; 93970; 99285; A9270; J1940; J2704; J7120

== ENCOUNTER 2023-11-27 15:11 | Outpatient (CLI) | payer MEDICARE, SELFPAY ==
[2023-11-27 15:36] LABS: Hematocrit 39.9 % (42.0-52.0); Hemoglobin 11.6 g/dL (14.0-18.0)
[2023-11-27 15:53] LABS: Alanine Aminotransferase 30 U/L (6-50); Albumin Level 4.2 g/dL (3.5-5.1); Alkaline Phosphatase 59 U/L (38-126); Anion Gap 8 mmol/L (8-16); Aspartate Amino Transferase 44 U/L (17-59); Bilirubin,Total 0.3 mg/dL (0.2-1.3); Blood Urea Nitrogen 18 mg/dL (9-20); Calcium 8.7 mg/dL (8.4-10.2); Carbon Dioxide 29 mmol/L (22-30); Chloride 91 mmol/L (98-107); Estimated Glomerular Filt Rate > 60; Glucose 93 mg/dL (65-110); Potassium 4.6 mmol/L (3.4-5.0); Sodium 128 mmol/L (137-145)
== END 2023-11-27 15:12 | disposition home or self-care (01) ==
LOC: ANHLAB 15:16
PROVIDERS: PCP Family Medicine; Visit Provider Family Medicine
DX: D64.9 Anemia, unspecified (principal); I10 Essential (primary) hypertension
CPT/HCPCS: 36415; 80053; 85014; 85018

== ENCOUNTER 2023-12-13 10:51 | Outpatient (CLI) | payer MEDICARE, SELFPAY ==
[2023-12-13 11:14] LABS: Hematocrit 44.4 % (42.0-52.0); Hemoglobin 12.6 g/dL (14.0-18.0)
[2023-12-13 11:23] LABS: Anion Gap 9 mmol/L (8-16); Blood Urea Nitrogen 21 mg/dL (9-20); Calcium 9.1 mg/dL (8.4-10.2); Carbon Dioxide 29 mmol/L (22-30); Chloride 98 mmol/L (98-107); Estimated Glomerular Filt Rate > 60; Glucose 102 mg/dL (65-110); Potassium 4.1 mmol/L (3.4-5.0); Sodium 136 mmol/L (137-145)
== END 2023-12-13 10:52 | disposition home or self-care (01) ==
PROVIDERS: PCP Family Medicine; Visit Provider Family Medicine
DX: E87.1 Hypo-osmolality and hyponatremia (principal); D50.0 Iron deficiency anemia secondary to blood loss (chronic)
CPT/HCPCS: 36415; 80048; 85014; 85018

== ENCOUNTER 2024-01-04 05:12 | Day surgery (SDC) | payer MEDICARE, SELFPAY ==
[2024-01-03 15:17] VITALS: BMI 29.1
[2024-01-04] VITALS (18 sets, daily range): BP systolic 116–147; BP diastolic 69–91; PULSE 64–84; RESP 13–22; TEMP 36.2–36.8; O2SAT 96–100; BMI 28.9
[2024-01-04 08:10] LABS: Basophils Percent Auto 0.4 % (0.2-1.2); Eosinophils Absolute Auto 0.3 K/mm3 (0-0.3); Eosinophils Percent Auto 2.6 % (0-4.4); Hematocrit 47.9 % (42.0-52.0); Hemoglobin 14.2 g/dL (14.0-18.0); Immature Granulocyte Absolute 0.04 K/mm3 (0.00-0.031); Immature Granulocyte Percent A 0.4 % (0-0.5); Lymphocytes Absolute Auto 1.24 K/mm3 (0.9-3.2); Lymphocytes Percent Auto 11.7 % (18.3-44.2); Mean Corpuscular HGB Conc 29.6 g/dl (32-36); Mean Corpuscular Volume 77.5 fl (80-100); Mean Platelet Volume 8.2 fl (7.4-10.4); Monocytes Absolute Auto 0.9 K/mm3 (0.1-0.6); Monocytes Percent Auto 8.3 % (2.6-8.5); Neutrophils Absolute Auto 8.1 K/mm3 (1.3-6.7); Neutrophils Percent Auto 76.6 % (45.5-73.1); Platelet Count Result 311 k/mm3 (150-375); Red Blood Count 6.18 M/mm3 (4.6-6.20); Red Cell Distribution Width 21.9 % (11.5-14.5); White Blood Count 10.6 K/mm3 (4.5-10.0)
[2024-01-04 08:21] LABS: Anion Gap 8 mmol/L (8-16); Blood Urea Nitrogen 16 mg/dL (9-20); Calcium 9.4 mg/dL (8.4-10.2); Carbon Dioxide 25 mmol/L (22-30); Chloride 102 mmol/L (98-107); Estimated CRCL calculation 63 ml/min; Estimated Glomerular Filt Rate > 60; Glucose 95 mg/dL (65-110); Potassium 4.3 mmol/L (3.4-5.0); Sodium 135 mmol/L (137-145)
[2024-01-04 08:42] LABS: Platelet Estimate Adequate (Adequate); Schistocytes None Seen (NORMAL)
--- NOTE | 2024-01-04 09:30 | WPDCARDPROC ---
Cardiac Cath Procedure Note Date of procedure:: 01/04/24 Performing physician:: Channing Tyler MD Indication:: Recently diagnosed cardiomyopathy Brief clinical history:: this 73-year-old man of his hospitalized recently with shortness of breath. He was found to be significantly anemic as well as to have left ventricular systolic dysfunction. He was treated medically and has done well. His anemia was found to be due to peptic ulcer disease which has been treated and resolved. Hemoglobin is now normal. Left heart catheterization has been scheduled for today to determine if ischemic heart disease is present. Procedure Procedure performed:: Left ventriculogram coronary angiogram Sedation/Medication given:: fentanyl 50 mg Versed 2 mg case start time 9:10 a.m. case end time 9:25 a.m. sedation provided by Brandie Rubalcava RN, trained observer Access site:: right femoral artery Estimated blood loss:: 25 cc Procedure note:: patient was brought to the cardiac catheterization lab in the postabsorptive state where the right femoral triangle was prepped and draped usual fashion. Anesthesia was provided with 1% lidocaine infiltrated locally. Using modified Seldinger technique the 5 [place] sheath was placed into the right femoral artery after this left heart catheterization was carried out I used a 5 [place] angled pigtail catheter to perform a left ventriculogram in the BOX projection and to measure left-sided hemodynamics following this left coronary artery was injected in multiple projections using a 5 [place] FL4 catheter. The right coronary was then injected in 3 projections using a standard 5 [place] JR4 catheter. The cineangiograms were then reviewed and the case was terminated. An angiogram was done of the femoral artery through the sheath after which I elected to proceed moved with direct manual compression. There were no procedural complications and no evidence of a groin hematoma was present upon his departure from the cardiac catheterization lab. Findings:: Hemodynamics: Central pressure is 116 over 56 left ventricle 116/0 end-diastolic pressure 12 there is no gradient on pullback across the aortic valve. Left ventricle: The left ventricle appears to be normal in size there is mild global systolic dysfunction identified with an ejection fraction that visually estimates to be 45%. No regional wall motion abnormalities were seen. The left main coronary artery is widely patent the left anterior descending is a large caliber artery extending down to the apex. The proximal 3rd of the LAD has significant adventitial calcification but there are no stenotic lesions seen in the LAD. The circumflex is a moderate caliber artery giving rise to the marginal branches. The circumflex is smooth and angiographically free of disease. The right coronary artery is large in caliber and dominant to the posterior circulation. The right coronary artery has significant calcification in the 1st and 2nd portions. There are no stenotic lesions seen in the RCA. Conclusion:: 1. Right coronary dominant circulation with calcifications seen in the proximal LAD and proximal right coronary artery but no stenotic lesions are identified. 2. Very mild left ventricular systolic function ejection fraction about 45% with normal left ventricular end-diastolic pressure on medical therapy Channing Tyler MD [facility]
--- NOTE | 2024-01-14 12:29 | WPDMODSED ---
Moderate Sedation Note-Pt Data Patient Data Diagnosis: Cardiomyopathy Present Complaint: No complaint Procedure to be performed/Plan: Left heart catheterization Allergies Allergy/AdvReac Type Severity Reaction Status Date / Time No Known Allergies Allergy Verified 01/08/24 15:01 Home Medications Medication Instructions Recorded Confirmed Type ferrous sulfate 325 mg (65 mg 325 mg PO BID 10/15/23 01/08/24 History iron) tablet empagliflozin 10 mg tablet 10 mg PO DAILY 1 month #30 tabs 10/17/23 01/08/24 Rx (Jardiance) sacubitril 24 mg-valsartan 26 mg 1 tablet PO Q12HR 1 month #60 tabs 10/17/23 01/08/24 Rx tablet (Entresto) spironolactone 25 mg tablet 25 mg PO QAM 1 month #30 tabs 10/17/23 01/08/24 Rx metoprolol succinate 25 mg 25 mg PO QAM 1 month #30 tabs 11/13/23 01/08/24 Rx tablet,extended release 24 hr (Toprol XL) tadalafil 20 mg tablet 20 mg PO DAILY sexual activity #90 12/05/23 01/08/24 Rx tabs furosemide 40 mg tablet 40 mg PO DAILY 01/03/24 01/08/24 History potassium chloride 20 mEq 20 meq PO USEASDIRECTD 01/03/24 01/08/24 History tablet,extended release sodium chloride 1,000 mg soluble 2,000 mg PO TID 01/03/24 01/08/24 History tablet pantoprazole 40 mg tablet,delayed 40 mg PO QAM #90 tabs 01/10/24 Rx release Sedation/Anesthesia: No previous sedation/anesthesia problems (including family history). [facility] Past Medical History Medical History Anemia Barretts esophagus D-dimer, elevated Elevated troponin Exertional dyspnea Flu vaccine need Gastritis GI bleed due to NSAIDs Heart disease Hydrocele Hyponatremia ANYA (obstructive sleep apnea) PUD (peptic ulcer disease) Weakness Surgical History Surgical History H/O sinus surgery History of nasal surgery History of tonsillectomy and adenoidectomy Hx of appendectomy S/P repair of hydrocele Family History Family History Father Lung cancer Heart attack Mother Stomach cancer Social History Social History Social History: Smoking packs per day: 2 Smoking cigarettes per day: 40.0 Years smoked: 16 Smoking pack-years: 32.00 Smoking status: Former smoker Tobacco type: cigarettes Second hand tobacco smoke exposure: No Alcohol intake: current Drinks per week: 5 Substance use: never Substance use type: does not use Do You Feel Safe in your Home?: Yes Lack of Transportation: No Lack of Food: Never True Current Housing: I Have Housing Concerned About Future Housing: No Difficulty Paying Gas/Electric Bills: No Difficulty Paying for Meds: No Currently Unemployed: No Education: Master's Degree or Higher Difficulty w/ Childcare or Family Care: No Living arrangements: with family Occupation/Education: retired Gender identity (if verbalized by the patient): Male Sexual Orientation (if Verbalized by the Patient): Straight or Heterosexual Spiritual care concerns: No Mod Sed Physical Exam Physical Exam Pre Procedural Exam: Normal: Appearance, Neck, Throat, Airway, Lungs, Heart Rate, Heart Rhythm, Neuro Exam and Extremities and Variation: Heart Size (PMI laterally displaced) Hours since solid foods: 12 Hours since liquid intake: 12 Mallampati Classification: class II Internal Medicine - PN: Obj Da Labs 01/04/24 07:59 01/04/24 07:58 ASA Classification/Sedation ASA Classification/Sedation ASA Class: II Emergent: No Risks: Risks, benefits and alternatives explained and patient/family accepted plan for sedation. Patient re-evaluated immediately prior to sedation.
--- NOTE | 2024-01-14 12:31 | PM.IMHP ---
H&P: HPI History of Present Illness Date/Time: 01/14/24 12:31 Chief Complaint: No complaints patient being admitted for outpatient left heart catheterization Narrative: This is a 73-year-old man who was recently found to have systolic left ventricular dysfunction who was admitted for congestive heart failure. He also was significantly anemic at the time of initial presentation it was not felt to be a appropriate candidate for angiography. He was treated medically and has improved significantly. He is no longer significantly anemic and plans are made this morning for left heart catheterization to define his myopathy is ischemic versus nonischemic. Review of Systems Constitutional: Constitutional: Reports lethargy Eyes: Eyes: Reports no additional eye complaints ENT: Reports system reviewed and no additional complaints, except as documented Cardiovascular: Cardiovascular: Reports no additional cardiovascular complaints Respiratory: Respiratory: Reports dyspnea on exertion Gastrointestinal: Gastrointestinal: Reports no additional gastrointestinal complaints Musculoskeletal: Musculoskeletal: Reports no additional musculoskeletal complaints Integumentary/Breasts: Skin/Breast: Reports system reviewed and no additional complaints, except as docu Neurologic: Reports system reviewed and no additional complaints, except as documented [facility] Past Medical History Medical History Anemia Barretts esophagus D-dimer, elevated Elevated troponin Exertional dyspnea Flu vaccine need Gastritis GI bleed due to NSAIDs Heart disease Hydrocele Hyponatremia ANYA (obstructive sleep apnea) PUD (peptic ulcer disease) Weakness Surgical History Surgical History H/O sinus surgery History of nasal surgery History of tonsillectomy and adenoidectomy Hx of appendectomy S/P repair of hydrocele Family History Family History Father Lung cancer Heart attack Mother Stomach cancer Social History Social History Social History: Smoking packs per day: 2 Smoking cigarettes per day: 40.0 Years smoked: 16 Smoking pack-years: 32.00 Smoking status: Former smoker Tobacco type: cigarettes Second hand tobacco smoke exposure: No Alcohol intake: current Drinks per week: 5 Substance use: never Substance use type: does not use Do You Feel Safe in your Home?: Yes Lack of Transportation: No Lack of Food: Never True Current Housing: I Have Housing Concerned About Future Housing: No Difficulty Paying Gas/Electric Bills: No Difficulty Paying for Meds: No Currently Unemployed: No Education: Master's Degree or Higher Difficulty w/ Childcare or Family Care: No Living arrangements: with family Occupation/Education: retired Gender identity (if verbalized by the patient): Male Sexual Orientation (if Verbalized by the Patient): Straight or Heterosexual Spiritual care concerns: No Meds Home Medications and Allergies Home Medications Medication Instructions Recorded Confirmed Type ferrous sulfate 325 mg (65 mg 325 mg PO BID 10/15/23 01/08/24 History iron) tablet empagliflozin 10 mg tablet 10 mg PO DAILY 1 month #30 tabs 10/17/23 01/08/24 Rx (Jardiance) sacubitril 24 mg-valsartan 26 mg 1 tablet PO Q12HR 1 month #60 tabs 10/17/23 01/08/24 Rx tablet (Entresto) spironolactone 25 mg tablet 25 mg PO QAM 1 month #30 tabs 10/17/23 01/08/24 Rx metoprolol succinate 25 mg 25 mg PO QAM 1 month #30 tabs 11/13/23 01/08/24 Rx tablet,extended release 24 hr (Toprol XL) tadalafil 20 mg tablet 20 mg PO DAILY sexual activity #90 12/05/23 01/08/24 Rx tabs furosemide 40 mg tablet 40 mg PO DAILY 01/03/24 01/08/24 History potassium chloride 20 mEq 20 meq PO USEASDIR
== END 2024-01-04 13:30 | disposition home or self-care (01) ==
PROVIDERS: PCP Family Medicine; Visit Provider Specialist
PROC: 4A023N7 Measurement of Cardiac Sampling and Pressure, Left Heart, Percutaneous Approach (ICD-10-PCS; CPT 93452; principal; 2024-01-04 09:00)
DX: I42.9 Cardiomyopathy, unspecified (principal); D64.9 Anemia, unspecified; I51.9 Heart disease, unspecified
CPT/HCPCS: 36415; 80048; 85025; 93458; C1887; C1894; J1644; J2250; J3010; J7030; J7040

== ENCOUNTER 2024-01-18 11:58 | Outpatient (CLI) | payer MEDICARE, SELFPAY ==
[2024-01-18 13:38] LABS: Basophils Percent Auto 0.6 % (0.2-1.2); Eosinophils Absolute Auto 0.2 K/mm3 (0-0.3); Eosinophils Percent Auto 2.8 % (0-4.4); Hematocrit 45.8 % (42.0-52.0); Hemoglobin 14.1 g/dL (14.0-18.0); Immature Granulocyte Absolute 0.02 K/mm3 (0.00-0.031); Immature Granulocyte Percent A 0.3 % (0-0.5); Lymphocytes Absolute Auto 1.72 K/mm3 (0.9-3.2); Lymphocytes Percent Auto 26.3 % (18.3-44.2); Mean Corpuscular HGB Conc 30.8 g/dl (32-36); Mean Corpuscular Hemoglobin 23.9 pg (26-34); Mean Corpuscular Volume 77.5 fl (80-100); Mean Platelet Volume 8.3 fl (7.4-10.4); Monocytes Absolute Auto 0.8 K/mm3 (0.1-0.6); Monocytes Percent Auto 12.8 % (2.6-8.5); Neutrophils Absolute Auto 3.7 K/mm3 (1.3-6.7); Neutrophils Percent Auto 57.2 % (45.5-73.1); Platelet Count Result 245 k/mm3 (150-375); Red Blood Count 5.91 M/mm3 (4.6-6.20); Red Cell Distribution Width 20.3 % (11.5-14.5); White Blood Count 6.5 K/mm3 (4.5-10.0)
[2024-01-18 13:50] LABS: Albumin Level 4.5 g/dL (3.5-5.1)
[2024-01-18 13:53] LABS: Prothrombin Time 13.3 Seconds (11.1-14.7)
[2024-01-18 13:54] LABS: Partial Thromboplastin Time 30.7 Seconds (22.3-36.8)
[2024-01-18 13:57] LABS: Urine Cotinine NEGATIVE
[2024-01-18 17:19] LABS: Hemoglobin A1C 5.6 % (<5.7)
== END 2024-01-18 11:59 | disposition home or self-care (01) ==
LOC: ANHSURGERY 12:03
PROVIDERS: Anesthesiology; PCP Family Medicine; Visit Provider Orthopaedic Surgery
DX: M17.12 Unilateral primary osteoarthritis, left knee (principal); N18.9 Chronic kidney disease, unspecified; Z01.818 Encounter for other preprocedural examination
CPT/HCPCS: 36415; 80307; 82040; 83036; 85025; 85610; 85730; 86850; 86900; 86901

== ENCOUNTER 2024-01-28 01:58 | Day surgery (SDC) | payer MEDICARE, SELFPAY ==
--- NOTE | 2024-01-18 12:06 | PC.NURSE ---
Report to the Outpatient Waiting Room, entrance under the green pavilion located off [facility], at time _6:00AM on date __01/28/24 . Planned Procedure Time: __7:30AM . Time changes happen often and if your time is changed the preop area will call you the afternoon before. - You and your visitor will be asked to self-screen and do not enter if you have any COVID symptoms. - A mask is optional within the hospital at this time. Patients may have clear liquids (water, carbonated beverages, clear teas, apple juice) until 3 hours prior to surgery with a maximum of 20 ounces. - No food from midnight until time of surgery. Take the following medications with a SIP of water the morning of surgery: ____METOPROLOL DO NOT STOP ANY OF YOUR OTHER PRESCRIPTION MEDICATIONS PRIOR TO SURGERY ?EXCEPT THE FOLLOWING Medications to discontinue per physician ___HOLD ALL VITAMINS/SUPPLEMENTS 3 DAYS PRE-OP PER ANESTHESIA Date to take last dose 01/24/24 Please no make-up, nail stateless, hairspray, perfume, deodorant, or body powder the day of surgery. No jewelry (including any body piercings) or valuables the day of surgery, leave them at home. Please take a shower or bath the night before, or the morning of, surgery with an antibacterial soap. Wear comfortable, loose fitting clothing. - Jewelry must be removed prior to entering the operating room. Rings and piercings that are not removed may be cut off. - The hospital will not accept responsibility for valuables. - Please leave all valuables, including medications, at home the day of surgery. If you are going home after surgery, a licensed semi driver must drive you home. - NO public transportation without another adult if you receive anesthesia. - We recommend that an adult stay with you for 24 hours following discharge. - We also recommend that you do not drive, make important decision, drink alcoholic beverages, or take any drugs that were not prescribed by your health care provider for at least 24 hours after your discharge time. Follow any additional instructions given to you from your surgeon. If you or anyone in your household have experienced Covid symptoms in the past week, please notify your surgeon or the nurse liaison at the phone number below for possible testing. Telephone instructions given to ____PATIENT and asked if any additional questions and then verbalized understanding. Patient advised to call surgeon office or pre surgery nurse liaison [phone] if any additional questions.
[2024-01-18 12:24] VITALS: BP 134/69; PULSE 89; RESP 16; TEMP 36.7; O2SAT 97; BMI 29.9
--- NOTE | 2024-01-24 11:03 | PM.IMHP ---
H&P: HPI History of Present Illness Date/Time: 01/24/24 11:03 Chief Complaint: Patient has severe arthritis osteoarthritis left knee with [id number] changes and deformity and would like a knee replacement. Review of Systems Musculoskeletal: Musculoskeletal: Reports arthralgias, Reports joint swelling and Reports stiffness [facility] Past Medical History Medical History Anemia Barretts esophagus D-dimer, elevated Elevated troponin Exertional dyspnea Flu vaccine need Gastritis GI bleed due to NSAIDs Heart disease Hydrocele Hyponatremia ANYA (obstructive sleep apnea) PUD (peptic ulcer disease) Weakness Surgical History Surgical History H/O sinus surgery History of nasal surgery History of tonsillectomy and adenoidectomy Hx of appendectomy S/P repair of hydrocele Family History Family History Father Lung cancer Heart attack Mother Stomach cancer Social History Social History Social History: Smoking packs per day: 2 Smoking cigarettes per day: 40.0 Years smoked: 15 Smoking pack-years: 30.00 Smoking status: Former smoker Tobacco type: cigarettes Second hand tobacco smoke exposure: No Smoking end date: 05/05/86 Alcohol intake: current Drinks per week: 7 Alcohol use details: HEAVIER DRINKER PRIOR TO 1998. Substance use: never Substance use type: does not use Do You Feel Safe in your Home?: Yes Lack of Transportation: No Lack of Food: Never True Current Housing: I Have Housing Concerned About Future Housing: No Difficulty Paying Gas/Electric Bills: No Difficulty Paying for Meds: No Currently Unemployed: No Education: Master's Degree or Higher Difficulty w/ Childcare or Family Care: No Living arrangements: with family Additional living arrangements comments: Occupation/Education: retired Gender identity (if verbalized by the patient): Male Sexual Orientation (if Verbalized by the Patient): Straight or Heterosexual Spiritual care concerns: No Meds Home Medications and Allergies Home Medications Medication Instructions Recorded Confirmed Type ferrous sulfate 325 mg (65 mg 325 mg PO 2XW 10/15/23 01/18/24 History iron) tablet empagliflozin 10 mg tablet 10 mg PO DAILY 1 month #30 tabs 10/17/23 01/18/24 Rx (Jardiance) sacubitril 24 mg-valsartan 26 mg 1 tablet PO Q12HR 1 month #60 tabs 10/17/23 01/18/24 Rx tablet (Entresto) spironolactone 25 mg tablet 25 mg PO QAM 1 month #30 tabs 10/17/23 01/18/24 Rx metoprolol succinate 25 mg 25 mg PO QAM 1 month #30 tabs 11/13/23 01/18/24 Rx tablet,extended release 24 hr (Toprol XL) tadalafil 20 mg tablet 20 mg PO DAILY sexual activity #90 12/05/23 01/18/24 Rx tabs potassium chloride 20 mEq 20 meq PO DIRECTED 01/03/24 01/18/24 History tablet,extended release sodium chloride 1,000 mg soluble 2,000 mg PO TID 01/03/24 01/18/24 History tablet pantoprazole 40 mg tablet,delayed 40 mg PO QAM #90 tabs 01/17/24 01/18/24 Rx release albuterol (refill) 90 90 mcg inhalation Q4-5H PRN 01/18/24 01/18/24 History mcg/actuation aerosol inhaler Shortness Of Breath Or Wheezing ascorbic acid 90 mg-zinc oxide 50 2 cap PO DAILY 01/18/24 01/18/24 History mg capsule furosemide 40 mg tablet 40 mg PO QAM 01/18/24 01/18/24 History ginseng 500 mg capsule 500 mg PO DAILY 01/18/24 01/18/24 History magnesium 500 mg tablet 15 mg PO DAILY 01/18/24 01/18/24 History testosterone 100 mg/mL 200 mg IM WEEKLY 01/18/24 01/18/24 History intramuscular suspension vitamin B complex 1 tablet PO DAILY 01/18/24 01/18/24 History Allergies Allergy/AdvReac Type Severity Reaction Status Date / Time No Known Allergies Allergy Verified 01/18/24 12:09 Exam Narrative:
--- NOTE | 2024-01-25 10:45 | SUR.PREOP ---
I spoke to patient who had requested communion and confession morning or surgery and informed him he would need to take care of that the day before surgery and patient states already has plans to do both on 01/26/24. Also clarified to only take the metoprolol morning of surgery understanding stated
[2024-01-28] VITALS (14 sets, daily range): BP systolic 118–155; BP diastolic 58–93; PULSE 71–86; RESP 14–20; TEMP 36.4–37.1; O2SAT 95–100
--- NOTE | ~2024-01-28 | XR_ITS ---
EXAMINATION: [id number] DATE: 01/28/2024 10:39 CDT INDICATION: Left total knee arthroplasty TECHNIQUE: 2 views left knee FINDINGS: There is a left total knee arthroplasty in expected position. Subcutaneous gas with fluid and air in the joint and overlying skin goran are consistent with recent surgery. No evidence of pe riprosthetic fracture. IMPRESSION: 1. Recent left total knee arthroplasty. Reviewed, dictated and finalized at location B.
[2024-01-28] MEDS: ACETAMINOPHEN 500 MG TABLET 1000 MG PO (06:25)
[2024-01-28] MEDS: LACTATED RINGERS 1,000 ML 30 ML IV CONT ×2 (06:40→09:35)
[2024-01-28] MEDS: VANCOMYCIN 1,250 MG/NS 250 ML 1,250 MG/250 ML BAG 166.67 MG IVPB (06:40)
[2024-01-28 06:45] LABS: Glucose Point of Care 101 mg/dl (65-105)
--- NOTE | 2024-01-28 06:58 | WPDHPUPDATE1 ---
History and Physical Update Update Date/Time: 01/28/24 06:58 History and Physical has been reviewed, including an updated exam of the patient. There are NO changes in the patient's condition. Risks, benefits, and alternatives have been discussed and questions answered. Patient agrees to proceed with procedure.
[2024-01-28] MEDS: TRANEXAMIC ACID 1,000MG/ISO100 1,000 MG/100 ML BAG 200 MG IVPB (07:10)
--- NOTE | 2024-01-28 07:15 | WPDANESEPPF ---
Anes - Initial Pre Proc Eval Procedure: Operation Date: 01/28/24 07:30 Proposed Procedures p Left Total Knee Arthroplasty - Magdy Valera MD Date/Time: 01/28/24 07:15 Surgeon: Magdy Valera MD Pre Op Diagnosis: O A Left Knee Patient Data Age: 73 Gender: M Height: 1.65 m Weight: 83 kg Last Vital Signs Temp 36.4 C L 01/28/24 07:02 Pulse 71 01/28/24 07:02 Resp 16 01/28/24 07:02 BP 146/93 H 01/28/24 07:02 Pulse Ox 97 01/28/24 07:02 O2 Del Method Room Air 01/28/24 07:02 Allergies Allergy/AdvReac Type Severity Reaction Status Date / Time No Known Allergies Allergy Verified 01/28/24 06:07 Home Medications Medication Instructions Recorded Confirmed Type ferrous sulfate 325 mg (65 mg 325 mg PO 2XW 10/15/23 01/28/24 History iron) tablet empagliflozin 10 mg tablet 10 mg PO DAILY 1 month #30 tabs 10/17/23 01/28/24 Rx (Jardiance) sacubitril 24 mg-valsartan 26 mg 1 tablet PO Q12HR 1 month #60 tabs 10/17/23 01/28/24 Rx tablet (Entresto) spironolactone 25 mg tablet 25 mg PO QAM 1 month #30 tabs 10/17/23 01/28/24 Rx metoprolol succinate 25 mg 25 mg PO QAM 1 month #30 tabs 11/13/23 01/28/24 Rx tablet,extended release 24 hr (Toprol XL) tadalafil 20 mg tablet 20 mg PO DAILY sexual activity #90 12/05/23 01/18/24 Rx tabs potassium chloride 20 mEq 20 meq PO DIRECTED 01/03/24 01/28/24 History tablet,extended release sodium chloride 1,000 mg soluble 2,000 mg PO TID 01/03/24 01/28/24 History tablet pantoprazole 40 mg tablet,delayed 40 mg PO QAM #90 tabs 01/17/24 01/28/24 Rx release albuterol (refill) 90 90 mcg inhalation Q4-5H PRN 01/18/24 01/28/24 History mcg/actuation aerosol inhaler Shortness Of Breath Or Wheezing ascorbic acid 90 mg-zinc oxide 50 2 cap PO DAILY 01/18/24 01/28/24 History mg capsule furosemide 40 mg tablet 40 mg PO QAM 01/18/24 01/28/24 History ginseng 500 mg capsule 500 mg PO DAILY 01/18/24 01/28/24 History magnesium 500 mg tablet 15 mg PO DAILY 01/18/24 01/28/24 History testosterone 100 mg/mL 200 mg IM WEEKLY 01/18/24 01/28/24 History intramuscular suspension vitamin B complex 1 tablet PO DAILY 01/18/24 01/28/24 History rivaroxaban 10 mg tablet (Xarelto) 10 mg PO DAILY PE Prophylaxis s/p 01/25/24 Rx total joint replacement #10 tabs Laboratory Tests 01/28/24 06:42 POC Capillary Glucose 101 mg/dl (65-105) Patient hx anesthesia problems: none Family hx anesthesia problems: none Results Review: All pre-operative results and documents have been reviewed as part of the pre-operative evaluation. [facility] Past Medical History Medical History Anemia Barretts esophagus D-dimer, elevated Elevated troponin Exertional dyspnea Flu vaccine need Gastritis GI bleed due to NSAIDs Heart disease Hydrocele Hyponatremia ANYA (obstructive sleep apnea) PUD (peptic ulcer disease) Weakness Surgical History Surgical History H/O sinus surgery History of nasal surgery History of tonsillectomy and adenoidectomy Hx of appendectomy S/P repair of hydrocele Family History Family History Father Lung cancer Heart attack Mother Stomach cancer Social History Social History Social History: Smoking packs per day: 2 Smoking cigarettes per day: 40.0 Years smoked: 15 Smoking pack-years: 30.00 Smoking status: Former smoker Tobacco type: cigarettes Second hand tobacco smoke exposure: No Smoking end date: 05/05/86 Alcohol intake: current Drinks per week: 7 Alcohol use details: HEAVIER DRINKER PRIOR TO 1998. Substance use: never Substance use type: does not use Do You Feel Safe in your Home?: Yes Lack of Transportation: No Lack o
[2024-01-28] MEDS: ceFAZolin 2 GM/D5W 50 ML 2 GM/50 ML BAG IVPB ×3 (07:47→23:43)
[2024-01-28] MEDS: SODIUM CHLORIDE 0.9% IV 37.7 ML, MORPHINE SULFATE INJ (*CRX) 2 MG, ROPivacaine HCL 1% 2... INFILTRATE (08:09)
--- NOTE | 2024-01-28 08:15 | WPDANESPNB ---
Anes - Peripheral Nerve Block Date/Time: 01/28/24 08:15 I have discussed with the patient/family/POA the placement of a peripheral nerve block for post-operative pain management, including associated risks, benefits, complications, and side effects. Alternative methods of post-operative analgesia were detailed. Questions were solicited and answers provided to the satisfaction of the patient/family/POA. Time-Out: A pre-procedural Time-Out was completed immediately before starting the procedure and confirmed: Patient Identification, Site, Procedure, Patient Position and the Availability of Requisite Equipment. Clinical Indications: Acute post-operative pain management requested by the operative surgeon. Nerve Block Insertion Note Anes-nerve block: adductor canal left Patient position: supine Skin prep: chlorhexidine Needle: 22 gauge, stimulating, insulated echogenic needle. Needle length: 80 mm Technique: ultrasound Technique comment: mid2mg [id number] Injectate: bupivacaine 0.5% with epi 5 mcg/ml (30ml no epi) and dexamethasone (mg) (4) Observations: tolerated well Complications: none Procedure start time:: 724 Procedure end time:: 731
[2024-01-28] MEDS: TRANEXAMIC ACID 1,000 MG/10 ML AMPUL 1000 MG IV PUSH (08:58)
--- NOTE | 2024-01-28 09:06 | P.OP_ITS ---
Procedure Note - Detailed Date of Procedure 01/28/24 Pre-op Diagnosis Osteoarthritis Left Knee Post-op Diagnosis Same Procedure Performed LEFT total knee arthroplasty Surgeon Magdy Valera MD Accounting Administrative Assistant Matt Anesthesia General Indications Pain & Arthritis Description of Procedure The patient was brought to operating room #8. A general anesthetic was administered. Placed on the operating table and sterilely prepped and draped in usual manner. A longitudinal incision was made. Tourniquet inflated to 300 mmHg for a total of 35 minutes. Dissection was carried down to the fascia. Medial parapatellar incision was made and the patella subluxated laterally. Patella cut from 24 to 15 mm and sized for a 34 mm button. The tibia was cut perpendicular to the long axis and femur cut in 5 degrees of valgus. A 65 femur trialed. A medial release the tibia is done to the posterior medial corner because of the tight to varus deformity. 67 tibia was felt to fit the best. The soft tissues balanced, hemostasis obtained. All [address], 67 tibia, 65 femur, 34 mm patella, and 11 mm poly. Motion was 0-125 degrees with good stability in both flexion and extension. The wound was closed with #2 Vicryl, 2-0 Vicryl and goran. [employer]plants [employer] Estimated Blood Loss 200 Drains No Packing No Pathology None sent Complications No immediate complications Condition Stable Disposition PACU [facility] Billing Surgery - Charge Forward: Surgery Billing (Total Knee [id number])
[2024-01-28] MEDS: HYDROcodone/acetaminophen (*CRX) 5-325 MG TABLET 1 TAB PO (11:33)
--- NOTE | 2024-01-28 11:45 | ADMGEN ---
This patient, Héctor Mary, was admitted to Medical Room 261-01. Patient/family oriented to hospital policies and general routines including ID bracelet, bed and alarms, visiting hours, pain management, procedures, bathroom and other care routines, personal items, smoking policy, room service/diet, and visiting hours. Information on how to activate the Rapid Response Team has been discussed. Patient/Family are encouraged to report perceived risks to care and to ask questions if they do not understand what they are told or what they should do. patient stable, minimal amount of pain. at bedside
--- NOTE | 2024-01-28 13:47 | WPDCN ---
Assessment and Plan Assessment and plan (1) Osteoarthritis of left knee: Code(s): M17.12 - Unilateral primary osteoarthritis, left knee Status: Acute Assessment and Plan: Postoperative day 0 status post left total knee arthroplasty. Wound care, pain control, and DVT prophylaxis deferred to Dr. Valera. Check baseline labs in a.m.. (2) Combined systolic and diastolic congestive heart failure: Code(s): I50.40 - Unspecified combined systolic (congestive) and diastolic (congestive) heart failure Status: Acute Assessment and Plan: Appears clinically compensated. Continue guideline directed medical therapy. Avoid over-hydration; monitor I/O and daily weights. (3) Gastroesophageal reflux disease: Code(s): K21.9 - Gastro-esophageal reflux disease without esophagitis Status: Acute Assessment and Plan: With history of peptic ulcers and Mederos esophagus. Continue pantoprazole. (4) Chronic hyponatremia: Code(s): E87.1 - Hypo-osmolality and hyponatremia Status: Acute Assessment and Plan: Continue sodium chloride tablets, 2 g t.i.d.. Check electrolytes in a.m. Plan Thank you for allowing us to participate in this patient's care. Please do not hesitate to contact us with any questions. HPI Data of Consult Date/Time: 01/28/24 13:50 Requesting Physician: Magdy Valera MD Consult Narrative Reason for consult: Medical management. Narrative: This is a very pleasant 73-year-old male with osteoarthritis, combined systolic and diastolic congestive heart failure, chronic hyponatremia, gastroesophageal reflux disease, Mederos esophagus, peptic ulcers, and anemia whom the hospitalist service has been consulted for help managing his medical conditions postoperatively. He reports longstanding pain in his left knee which is not been amenable to conservative outpatient treatment and he elected for replacement today. Surgery was performed under general anesthesia with no immediate complications documented and an estimated blood loss of 200 mL. Postoperatively he has done quite well and his pain is manageable. He has been ambulating with a walker without issue. He denies postoperative fevers, chills, sweats, chest pain, shortness a breath, nausea, and vomiting. No paresthesias, skin color, or temperature changes distal to the surgical site. Regarding his medical conditions, he had a cardiac catheterization done earlier this month for evaluation of cardiomyopathy which showed right coronary dominant circulation with calcifications in the proximal LAD and proximal right coronary artery but no stenotic lesions and very mild left ventricular systolic dysfunction with an EF of 45%. He has been on guideline directed medical therapy and seems to be doing well. He has chronic hyponatremia and is on sodium chloride tablets, 2 g t.i.d.. 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 His other medical conditions are well controlled. Review of Systems Review of Systems: 12 systems were reviewed and are negative except for as per HPI. [facility] Past Medical History Medical History (Updated 01/29/24 @ 00:06 by Effie Tovar PA-C) Anemia Barretts esophagus Chronic hyponatremia Combined systolic and diastolic congestive heart failure Gastritis Gastroesophageal reflux disease GI bleed due to NSAIDs Obstructive sleep apnea Status post inspire implant. Peptic ulcer disease Single seizure Attributed to hyponatremia Surgical History Surgical History (Updated 01/28/24 @ 13:56 by Effie Tovar PA-C) History of appendectomy History of cardiac catheterization (01/04/24) Right coronary dominant circulation, calcifications in the proximal LAD and right coronary artery but no stenotic lesions, EF 45%. History of cataract extraction
[2024-01-28] MEDS: SENNA/DOCUSATE SODIUM TABLET 2 TAB PO (16:19)
[2024-01-28] MEDS: RIVAROXABAN 10 MG TABLET PO (16:19)
[2024-01-28] MEDS: CELECOXIB 200 MG CAPSULE PO (16:19)
[2024-01-28] MEDS: ALBUTEROL SULFATE (*SP) AEROSOL 1 PUFF INHALATION (17:00)
[2024-01-28] MEDS: HYDROcodone/acetaminophen (*CRX) 7.5-325 MG TABLET 1 TAB PO (20:08)
[2024-01-28] MEDS: SACUBITRIL/VALSARTAN 24-26 MG TABLET 1 TAB PO (20:25)
[2024-01-29] MEDS: SODIUM CHLORIDE 1 GM TABLET 2 GM PO ×2 (00:14→09:37)
[2024-01-29 00:54] VITALS: BP 115/65; PULSE 79; RESP 16; TEMP 36.6; O2SAT 97
[2024-01-29 04:19] VITALS: BP 114/54; PULSE 89; RESP 16; TEMP 37.2; O2SAT 94
[2024-01-29 05:56] LABS: Basophils Percent Auto 0.2 % (0.2-1.2); Eosinophils Percent Auto 0.2 % (0-4.4); Hematocrit 34.3 % (42.0-52.0); Hemoglobin 10.6 g/dL (14.0-18.0); Immature Granulocyte Absolute 0.03 K/mm3 (0.00-0.031); Immature Granulocyte Percent A 0.3 % (0-0.5); Lymphocytes Absolute Auto 1.71 K/mm3 (0.9-3.2); Lymphocytes Percent Auto 17.3 % (18.3-44.2); Mean Corpuscular HGB Conc 30.9 g/dl (32-36); Mean Corpuscular Hemoglobin 24.1 pg (26-34); Mean Corpuscular Volume 78.1 fl (80-100); Monocytes Absolute Auto 2.2 K/mm3 (0.1-0.6); Monocytes Percent Auto 21.9 % (2.6-8.5); Neutrophils Absolute Auto 5.9 K/mm3 (1.3-6.7); Neutrophils Percent Auto 60.1 % (45.5-73.1); Platelet Count Result 265 k/mm3 (150-375); Red Blood Count 4.39 M/mm3 (4.6-6.20); Red Cell Distribution Width 17.8 % (11.5-14.5); White Blood Count 9.9 K/mm3 (4.5-10.0)
[2024-01-29 06:06] LABS: Anion Gap 5 mmol/L (8-16); Blood Urea Nitrogen 17 mg/dL (9-20); Calcium 8.4 mg/dL (8.4-10.2); Carbon Dioxide 26 mmol/L (22-30); Chloride 98 mmol/L (98-107); Estimated CRCL calculation 65 ml/min; Estimated Glomerular Filt Rate > 60; Glucose 112 mg/dL (65-110); Potassium 3.9 mmol/L (3.4-5.0); Sodium 129 mmol/L (137-145)
--- NOTE | 2024-01-29 07:09 | PM.PNORT ---
Progress Note: A&P Assessment and Plan (1) History of knee replacement procedure of left knee: Code(s): Z96.652 - Presence of left artificial knee joint Status: Acute Assessment and Plan: Patient is status post total knee arthroplasty left. Overall is doing okay. He can be dismissed with Fritz and Taina. Follow up 10 to 14 days for sutures out. Subjective Subjective Date/Time Seen: 01/29/24 07:09 Post Op day: 1 Principal diagnosis: Patient is a 1 day status post total knee arthroplasty left. Review of Systems Review of Systems: 12 systems were reviewed and are negative except for as per HPI. Exam Narrative: Patient can wiggle his toes. Neurologically appears to be intact. Dressing is intact. Objective Data Vital Signs Vital Signs: Vital Signs - 24 hr 01/28/24 09:35 01/28/24 09:50 01/28/24 09:55 Temperature 97.5 F L Pulse Rate 80 82 Respiratory Rate 14 18 Blood Pressure 146/85 H 152/87 H Pulse Oximetry 97 100 95 Oxygen Delivery Simple Face Mask Simple Face Mask Room Air Oxygen Flow Rate 10 10 01/28/24 10:05 01/28/24 10:20 01/28/24 10:30 Temperature Pulse Rate 83 80 77 Respiratory Rate 18 20 20 Blood Pressure 155/92 H 134/91 H 144/88 H Pulse Oximetry 99 98 97 Oxygen Delivery Room Air Room Air Room Air Oxygen Flow Rate 01/28/24 11:09 01/28/24 11:09 01/28/24 11:55 Temperature 97.7 F 97.7 F Pulse Rate 80 85 Respiratory Rate 16 16 Blood Pressure 146/85 H 144/82 H Pulse Oximetry 97 99 Oxygen Delivery Room Air Oxygen Flow Rate 01/28/24 12:54 01/28/24 11:24 01/28/24 14:04 Temperature 97.7 F 97.7 F Pulse Rate 80 84 Respiratory Rate 16 16 Blood Pressure 143/80 H 140/82 Pulse Oximetry 99 99 Oxygen Delivery Room Air Oxygen Flow Rate 01/28/24 18:06 01/28/24 20:54 01/28/24 20:10 Temperature 98.5 F 98.8 F Pulse Rate 86 81 81 Respiratory Rate 16 16 16 Blood Pressure 118/62 119/58 L Pulse Oximetry 97 97 97 Oxygen Delivery Room Air Oxygen Flow Rate 01/29/24 00:54 01/29/24 04:19 Temperature 97.8 F 99.0 F Pulse Rate 79 89 Respiratory Rate 16 16 Blood Pressure 115/65 114/54 L Pulse Oximetry 97 94 Oxygen Delivery Oxygen Flow Rate Intake/Output Intake/Output: Intake & Output 01/26/24 01/27/24 01/28/24 01/29/24 23:59 23:59 23:59 23:59 Intake Total 2140 550 Balance 2140 550 Meds/Results Medications: Active Medications Generic Name Dose Route Start Last Admin Trade Name Freq PRN Reason Stop Dose Admin Hydrocodone Bitart/Acetaminophen 1 tab 01/28/24 11:09 01/28/24 20:08 Hydrocodone/Acetaminophen (*Crx) 7.5-325 Mg Tablet PO 1 tab Q6H PRN Administration Pain Rated 7-10 Hydrocodone Bitart/Acetaminophen 1 tab 01/28/24 11:09 01/28/24 11:33 Hydrocodone/Acetaminophen (*Crx) 5-325 Mg Tablet PO 1 tab Q4H PRN Administration Pain Rated 4-6 Albuterol 1 puff 01/28/24 11:53 01/28/24 17:00 Albuterol Sulfate (*Sp) Aerosol 1 Puff INHALATION 1 puff Q4H PRN Administration Shortness Of Breath Or Wheezing Celecoxib 200 mg 01/28/24 17:00 01/28/24 16:19 Celecoxib 200 Mg Capsule PO 200 mg BIDWM MORENA Administration Cyclobenzaprine HCl 10 mg 01/28/24 11:09 Cyclobenzaprine Hcl 10 Mg Tablet PO Q8H PRN Spasms Diphenhydramine HCl 25 mg 01/28/24 11:09 Diphenhydramine Hcl Inj 50 Mg/Ml Vial IV PUSH Q6H PRN Itching Empagliflozin 10 mg 01/29/24 09:00 Empagliflozin 10 Mg Tablet PO DAILY MORENA Furosemide 40 mg 01/29/24 09:00 Furosemide 40 Mg Tablet PO QAM MORENA Cefazolin Sodium 2 gm in 50 mls @ 100 mls/hr 01/28/24 16:00 01/29/24 00:13 Ancef 2 Gm/D5w 50 Ml IVPB 01/29/24 08:29 Infused Q8H MORENA Infusion Metoprolol Succinate 25 mg 01/29/24 09:00 Metoprolol Succinate Ext Rel 25 Mg Tabcr PO QAM MORENA Naloxone HCl 0.1 mg 01/28/24 11:09 Naloxone Hcl 0.4 Mg/Ml Vial IV PUSH Q2M PRN Op
--- NOTE | 2024-01-29 07:11 | PM.DS ---
DS: Admitting Diagnosis Discharge Date 01/28/24 Admitting Diagnosis Osteoarthritis left knee DS: Discharge Diagnosis Discharge Diagnosis (1) History of knee replacement procedure of left knee: Code(s): Z96.652 - Presence of left artificial knee joint Status: Acute Plan Patient underwent total knee arthroplasty for left knee osteoarthritis. He has done well postoperatively can be discharged home. DS: Summary Hospital Course Hospital Course: Patient has a typical postop course. Can wiggle his toes pain is starting to be under control. Will dismissed home today. Status at Discharge Functional status at discharge: uses cane/walker Time Spent with Patient Time attestation: Total time spent providing and/or coordinating discharge services: Exam Narrative: Patient can wiggle his toes. Neurologically appears to be intact. His dressing is intact. DS: Data Data Completed and Pending Labs on day of discharge: Labs from last 24 hours 01/29/24 05:02 WBC 9.9 RBC 4.39 L Hgb 10.6 L D Hct 34.3 L MCV 78.1 L MCH 24.1 L MCHC 30.9 L RDW 17.8 H Plt Count 265 MPV 9.0 Immature Gran % (Auto) 0.3 Neut % (Auto) 60.1 Lymph % (Auto) 17.3 L Chaves % (Auto) 21.9 H Eos % (Auto) 0.2 Baso % (Auto) 0.2 Lymph # (Auto) 1.71 Chaves # (Auto) 2.2 H Eos # (Auto) 0.0 Baso # (Auto) 0.0 Abs Immat Gran (auto) 0.03 Absolute Neuts (auto) 5.9 Absolute Nucleated RBC 0.000 Nucleated RBC % 0.0 Sodium 129 L Potassium 3.9 Chloride 98 Carbon Dioxide 26 Anion Gap 5 L BUN 17 Creatinine 0.90 Estim Creat Clear Calc 65 Estimated GFR > 60 Glucose 112 H Calcium 8.4 Magnesium 2.0 Discharge Plan Discharge Patient Disposition: Home, Self-Care Discharge Instructions: Dr. Magdy Valera M.D [address] [address] POST-OPERATIVE DISCHARGE INSTRUCTIONS TOTAL KNEE ARTHROPLASTY 1. When resting, do not rest in the chair.When resting, lie on your back, with back flat on the couch or bed, with leg elevated above heart to minimize swelling. You may put a pillow under your head. . Significant swelling could indicate a blood clot and if this occurs call the office (or go to the ER) to have a venous ultrasound. Therefore, do not rest in a chair. 2. At least five times a day spend several minutes stretching your knee into flexion while sitting in the chair and also stretching your knee out straight The abilities to bend your knee fulling and straighten your knee fully are two most important knee functions to focus on during your recovery. 3. It is ok to sit in chair to eat, use the toilet and receive a guest and to do your stretching exercises, but, sitting in a chair will cause your leg to swell. Therefore, avoid additional time sitting in the chair. and don't rest in the chair. 4. Wound Care: Nursing will give you an additional Mepilex dressing at the time of discharge. Patient to remove the dressing and apply a new Mepilex dressing at home 7 days after surgery and leave the dressing on until seen in office. 5. May shower with a Mepilex dressing in place.The water will run off the dressing. 6. Unless you are told otherwise, you may put full weight on your operated leg. Use a walker for balance and practice walking as normally as you can, ideally for a few minutes every hour while you are awake. 7. I would advise against putting ice packs on your knee incision. Ice constricts blood flow which can impar healing of the knee incision. IMPORTANT: Remember not to sit in the chair for more than 30 minutes at a time. As a rule, during the first 14 days after surgery, only sit in the chair to work on the chair knee bending stretch exercise, for meals or for use of the restroom. Sitting in the chair promotes significant swelling in the knee and leg which will make your knee stiff and more painful and which simulates having a blood clot in the veins of the leg.
[2024-01-29 08:54] VITALS: BP 117/59; PULSE 95; RESP 20; TEMP 36.2; O2SAT 100
[2024-01-29 09:37] VITALS: PULSE 89
[2024-01-29] MEDS: CELECOXIB 200 MG CAPSULE PO (09:37)
[2024-01-29] MEDS: METOPROLOL SUCCINATE EXT REL 25 MG TABCR PO (09:37)
[2024-01-29] MEDS: PANTOPRAZOLE 40 MG TABLET PO (09:37)
[2024-01-29] MEDS: SENNA/DOCUSATE SODIUM TABLET 2 TAB PO (09:37)
[2024-01-29] MEDS: SPIRONOLACTONE 25 MG TABLET PO (09:37)
[2024-01-29] MEDS: FUROSEMIDE 40 MG TABLET PO (09:38)
[2024-01-29] MEDS: SACUBITRIL/VALSARTAN 24-26 MG TABLET 1 TAB PO (09:38)
[2024-01-29] MEDS: ceFAZolin 2 GM/D5W 50 ML 2 GM/50 ML BAG IVPB (09:38)
[2024-01-29] MEDS: polyethylene glycoL 3350 17 GM POWD.PACK PO (09:38)
[2024-01-29] MEDS: EMPAGLIFLOZIN 10 MG TABLET PO (09:38)
[2024-01-29] MEDS: POTASSIUM CHLORIDE 20 MEQ ER TABLET PO ×2 (09:38→09:43)
[2024-01-29] MEDS: HYDROcodone/acetaminophen (*CRX) 7.5-325 MG TABLET 1 TAB PO (11:14)
--- NOTE | 2024-01-29 15:15 | PCCCNOTE ---
On 01/29/24, the student, [Stephanie Mccray], provided care and completed [facility] documentation on this patient. I have reviewed the student's documentation and agree with the findings.
== END 2024-01-29 12:09 | disposition home or self-care (01) ==
LOC: ANHSURGERY 05:56 → ANH2MED 11:23
PROVIDERS: PCP Family Medicine; Visit Provider Orthopaedic Surgery
PROC: (CPT 27447; principal; 2024-01-28 07:30)
DX: M17.12 Unilateral primary osteoarthritis, left knee (principal); D64.9 Anemia, unspecified; E87.1 Hypo-osmolality and hyponatremia; G47.33 Obstructive sleep apnea (adult) (pediatric); K21.9 Gastro-esophageal reflux disease without esophagitis; K22.70 Barrett's esophagus without dysplasia; G89.18 Other acute postprocedural pain; K27.9 Peptic ulcer, site unspecified, unspecified as acute or chronic, without hemorrhage or perforation; I50.40 Unspecified combined systolic (congestive) and diastolic (congestive) heart failure; E66.9 Obesity, unspecified; Z68.32 Body mass index [BMI] 32.0-32.9, adult; Z79.84 Long term (current) use of oral hypoglycemic drugs; Z79.51 Long term (current) use of inhaled steroids; Z79.01 Long term (current) use of anticoagulants; Z98.890 Other specified postprocedural states; Z87.891 Personal history of nicotine dependence; Z86.79 Personal history of other diseases of the circulatory system; Z80.1 Family history of malignant neoplasm of trachea, bronchus and lung; Z80.0 Family history of malignant neoplasm of digestive organs; Z82.49 Family history of ischemic heart disease and other diseases of the circulatory system
CPT/HCPCS: 64447; 27447; 36415; 73560; 80048; 82948; 83735; 85025; 97110; 97161; 97165; 97530; 97535; A9270; C1713; C1776; J0171; J0690; J1100; J1885; J2250; J2270; J2371; J2405; J2704; J2795; J3010; J3370; J7120

== ENCOUNTER 2024-01-31 09:40 | Outpatient (CLI) | payer MEDICARE, SELFPAY ==
--- NOTE | ~2024-01-31 | US_ITS ---
EXAMINATION: US venous doppler [facility] DATE: 01/31/2024 10:03 INDICATION: Left lower limb swelling TECHNIQUE: Hurtado scale images without and with compression and Doppler images of the left lower extrem ity veins were obtained. COMPARISON: 10/16/2023 FINDINGS: The left common femoral vein, profunda femoral vein, femoral vein, popliteal vein, peroneal trunk, posterior tibial veins, and greater saphenous vein are patent. IMPRESSION: 1. Patent left lower extremity veins. No evidence of deep venous thrombosis. Reviewed, dictated and finalized at location F.
== END 2024-01-31 09:41 | disposition home or self-care (01) ==
LOC: ANHIMG 09:40
PROVIDERS: PCP Family Medicine; Visit Provider Orthopaedic Surgery
DX: M79.89 Other specified soft tissue disorders (principal)
CPT/HCPCS: 93971

== ENCOUNTER 2024-04-08 16:18 | Outpatient (CLI) | payer MEDICARE, SELFPAY ==
[2024-04-08 17:24] LABS: Basophils Absolute Auto 0.1 K/mm3 (0.0-0.1); Basophils Percent Auto 0.6 % (0.2-1.2); Eosinophils Absolute Auto 0.3 K/mm3 (0-0.3); Eosinophils Percent Auto 4.1 % (0-4.4); Hematocrit 43.7 % (42.0-52.0); Hemoglobin 13.8 g/dL (14.0-18.0); Immature Granulocyte Absolute 0.03 K/mm3 (0.00-0.031); Immature Granulocyte Percent A 0.4 % (0-0.5); Lymphocytes Absolute Auto 2.15 K/mm3 (0.9-3.2); Mean Corpuscular HGB Conc 31.6 g/dl (32-36); Mean Corpuscular Hemoglobin 25.1 pg (26-34); Mean Corpuscular Volume 79.5 fl (80-100); Mean Platelet Volume 8.5 fl (7.4-10.4); Monocytes Percent Auto 12.4 % (2.6-8.5); Neutrophils Absolute Auto 4.7 K/mm3 (1.3-6.7); Neutrophils Percent Auto 56.5 % (45.5-73.1); Platelet Count Result 264 k/mm3 (150-375); Red Cell Distribution Width 17.6 % (11.5-14.5); White Blood Count 8.3 K/mm3 (4.5-10.0)
[2024-04-08 17:35] LABS: Albumin Level 4.5 g/dL (3.5-5.1); INR 1.1; Partial Thromboplastin Time 31.1 Seconds (22.3-36.8); Prothrombin Time 14.2 Seconds (11.1-14.7)
[2024-04-08 17:37] LABS: Albumin Level 4.6 g/dL (3.5-5.1); Anion Gap 8 mmol/L (4-12); Blood Urea Nitrogen 16 mg/dL (9-20); Carbon Dioxide 28 mmol/L (22-30); Chloride 93 mmol/L (98-107); Estimated Glomerular Filt Rate > 60; Glucose 92 mg/dL (65-110); Phosphorus 3.3 mg/dL (2.5-4.5); Sodium 129 mmol/L (137-145)
[2024-04-08 17:46] LABS: Anion Gap 9 mmol/L (4-12); Blood Urea Nitrogen 16 mg/dL (9-20); Carbon Dioxide 28 mmol/L (22-30); Chloride 93 mmol/L (98-107); Estimated Glomerular Filt Rate > 60; Glucose 93 mg/dL (65-110); Sodium 130 mmol/L (137-145); Total Protein Urine Random 13 mg/dL; Urine Cotinine NEGATIVE
[2024-04-08 17:47] LABS: Microalbumin Urine Random 26.8 mg/L (0-16.7)
[2024-04-08 17:49] LABS: Hemoglobin A1C 5.3 % (<5.7)
[2024-04-08 17:50] LABS: Sodium Urine Random 102 meq/L
[2024-04-08 18:38] LABS: Creatinine Urine 82.5 mg/dL; MALB Creatinine Ratio 32.5 mg/g (0-30)
[2024-04-08 18:45] LABS: Creatinine Urine 83.2 mg/dL; Ur Ttl Prot Creatinine Ratio 0.16 mg/mg (0-0.20)
[2024-04-09 08:42] LABS: Protein, Total 7.1 g/dL (6.1-8.1)
[2024-04-09 13:38] LABS: Albumin 4.3 g/dL (3.8-4.8); Alpha 1 Globulin 0.3 g/dL (0.2-0.3); Alpha 2 Globulin 0.6 g/dL (0.5-0.9); Beta 1 Globulin 0.5 g/dL (0.4-0.6); Gamma Globulin 1.1 g/dL (0.8-1.7)
[2024-04-10 14:24] LABS: Creatinine, Random Urine 80 mg/dL (20-320); Total Protein/Creatinine Ratio 263 mg/g creat (25-148)
[2024-04-10 16:17] LABS: Osmolality, Urine 552 mOsm/kg (50-1200)
[2024-04-13 22:44] LABS: Immunofixation, Serum Normal pattern.
== END 2024-04-08 16:19 | disposition home or self-care (01) ==
PROVIDERS: Anesthesiology; Family Medicine; PCP Internal Medicine Nephrology; Referring Provider Nurse Practitioner; Visit Provider Orthopaedic Surgery
DX: Z01.818 Encounter for other preprocedural examination (principal); M17.11 Unilateral primary osteoarthritis, right knee; E87.1 Hypo-osmolality and hyponatremia; N28.9 Disorder of kidney and ureter, unspecified; E11.9 Type 2 diabetes mellitus without complications; Z79.899 Other long term (current) drug therapy
CPT/HCPCS: 36415; 80048; 80069; 80307; 82040; 82043; 82533; 82570; 83036; 83930; 83935; 84155; 84156; 84165; 84166; 84300; 84443; 85025; 85610; 85730; 86334; 86335; 86850; 86900; 86901

== ENCOUNTER 2024-04-16 01:26 | Day surgery (SDC) | payer MEDICARE, SELFPAY ==
--- NOTE | 2024-04-07 11:08 | PC.NURSE ---
Addendum entered by Jagruti Dietrich RN 04/07/24 11:12: MAY USE INHALER DAY OF SURGERY IF NEEDED Original Note: PRE-OP INSTRUCTIONS, PLEASE READ CAREFULLY Report to the Outpatient Waiting Room, entrance under the green pavilion located off [facility], at time _0600_ on date _04/16/24_. Planned Procedure Time: _0730_. PACK A SMALL OVERNIGHT BAG AND LEAVE IN THE CAR Time changes happen often and if your time is changed the preop area will call you the afternoon before. - You and your visitor will be asked to self-screen and do not enter if you have any COVID symptoms. - A mask is optional within the hospital at this time. -VISITING HOURS 8AM-8PM Patients may have clear liquids (water, carbonated beverages, clear teas, apple juice) until 3 hours prior to surgery (0430 AM) with a maximum of 20 ounces. - No food from midnight until time of surgery Take the following medications with a SIP of water the morning of surgery: _METOPROLOL_ DO NOT STOP ANY OF YOUR OTHER PRESCRIPTION MEDICATIONS PRIOR TO SURGERY ?EXCEPT THE FOLLOWING Medications to discontinue per ANESTHESIA - _VITAMINS/SUPPLEMENTS 3 DAYS PRIOR TO SURGERY, Date to take last dose 04/12/24_ Please no make-up, nail turkmen, hairspray, perfume, deodorant, or body powder the day of surgery. No jewelry (including any body piercings) or valuables the day of surgery, leave them at home. Please take a shower or bath the night before, or the morning of, surgery with an antibacterial soap. Wear comfortable, loose fitting clothing. - Jewelry must be removed prior to entering the operating room. Rings and piercings that are not removed may be cut off. - The hospital will not accept responsibility for valuables. - Please leave all valuables, including medications, at home the day of surgery. If you are going home after surgery, a licensed stock driver must drive you home. - NO public transportation without another adult if you receive anesthesia. - We recommend that an adult stay with you for 24 hours following discharge. - We also recommend that you do not drive, make important decision, drink alcoholic beverages, or take any drugs that were not prescribed by your health care provider for at least 24 hours after your discharge time. Follow any additional instructions given to you from your surgeon. If you or anyone in your household have experienced Covid symptoms in the past week, please notify your surgeon or the nurse liaison at the phone number below for possible testing. Telephone instructions given to _PATIENT_and asked if any additional questions and then verbalized understanding. Patient advised to call surgeon office or pre surgery nurse liaison [phone] if any additional questions.
--- NOTE | 2024-04-15 11:46 | PM.IMHP ---
H&P: HPI History of Present Illness Date/Time: 04/15/24 11:46 Chief Complaint: Patient presents with knee pain right. He has niee-ec-awmh arthritis of his right knee and has failed conservative treatment. He would like to proceed with total knee arthroplasty on the right. Of note is the fact he hada total knee arthroplasty on the left on 2 months ago and has done quite well. Review of Systems Musculoskeletal: Musculoskeletal: Reports arthralgias, Reports joint swelling and Reports stiffness [facility] Past Medical History Medical History Barretts esophagus Chronic hyponatremia Combined systolic and diastolic congestive heart failure Gastritis Gastroesophageal reflux disease GI bleed due to NSAIDs Obstructive sleep apnea Status post inspire implant. Peptic ulcer disease Single seizure Attributed to hyponatremia Surgical History Surgical History History of appendectomy History of cardiac catheterization (01/04/24) Right coronary dominant circulation, calcifications in the proximal LAD and right coronary artery but no stenotic lesions, EF 45%. History of cataract extraction with lens replacement History of knee replacement procedure of left knee History of nasal surgery History of sinus surgery History of tonsillectomy and adenoidectomy Status post repair of hydrocele Family History Family History Father Lung cancer Heart attack Mother Stomach cancer Social History Social History (Updated 04/14/24 @ 16:27 by Hortencia Fernandes MA) Social History: Surrogate medical decision maker: Nachobrett Mary, spouse. Code status: Full code. Smoking packs per day: 2 Smoking cigarettes per day: 40.0 Years smoked: 15 Smoking pack-years: 30.00 Smoking status: Never smoker Tobacco type: cigarettes Second hand tobacco smoke exposure: No Smoking end date: 05/05/86 Additional smoking assessment comments: PT DENIES ALL FORMS OF TOBACCO USE Alcohol intake: current Drinks per week: 7 Alcohol use details: Was a heavier drinker prior to 1998. Substance use: never Substance use type: does not use Do You Feel Safe in your Home?: Yes Lack of Transportation: No Lack of Food: Never True Current Housing: I Have Housing Concerned About Future Housing: No Difficulty Paying Gas/Electric Bills: No Difficulty Paying for Meds: No Currently Unemployed: No Education: Master's Degree or Higher Difficulty w/ Childcare or Family Care: No Living arrangements: with family Additional living arrangements comments: Lives with spouse in [place]. Occupation/Education: retired Gender identity (if verbalized by the patient): Male Spiritual care concerns: No Meds Home Medications and Allergies Home Medications Medication Instructions Recorded Confirmed Type empagliflozin 10 mg tablet 10 mg PO DAILY 1 month #30 tabs 10/17/23 04/14/24 Rx (Jardiance) spironolactone 25 mg tablet 25 mg PO QAM 1 month #30 tabs 10/17/23 04/14/24 Rx metoprolol succinate 25 mg 25 mg PO QAM 1 month #30 tabs 11/13/23 04/14/24 Rx tablet,extended release 24 hr (Toprol XL) sodium chloride 1,000 mg soluble 2,000 mg PO TID 01/03/24 04/14/24 History tablet pantoprazole 40 mg tablet,delayed 40 mg PO QAM #90 tabs 01/17/24 04/14/24 Rx release albuterol (refill) 90 90 mcg inhalation Q4-5H PRN 01/18/24 04/14/24 History mcg/actuation aerosol inhaler Shortness Of Breath Or Wheezing ascorbic acid 90 mg-zinc oxide 50 2 cap PO DAILY 01/18/24 04/14/24 History mg capsule ginseng 500 mg capsule 500 mg PO DAILY 01/18/24 04/14/24 History magnesium 500 mg tablet 15 mg PO DAILY 01/18/24 04/14/24 History testosterone 100 mg/mL 200 mg IM WEEKLY 01/18/24 04/14/24 History intramuscular suspension vitamin B complex 1 tablet PO DAILY 01/18/24
[2024-04-16] VITALS (13 sets, daily range): BP systolic 124–148; BP diastolic 61–83; PULSE 67–90; RESP 10–22; TEMP 36.3–36.9; O2SAT 89–100
--- NOTE | ~2024-04-16 | XR_ITS ---
Right Knee Technique: Portable AP and crosstable lateral views Clinical History: Status post TKR Findings: Patient is status post total knee replacement. Orthopedic hardware alignment appears anatom ic. No hardware complication is evident. Subcutaneous emphysema and swelling is likely postoperative in nature. No acute osseous fracture is seen. Impression: Status post total knee replacement, without evidence of hardware complication. Reviewed, dictated and finalized at location . Impression: Status post total knee replacement, without evidence of hardware complication.
[2024-04-16] MEDS: ACETAMINOPHEN 500 MG TABLET 1000 MG PO (06:20)
[2024-04-16 06:35] LABS: Glucose Point of Care 98 mg/dl (65-105)
[2024-04-16 06:36] LABS: Sodium 131 mmol/L (137-145)
[2024-04-16] MEDS: VANCOMYCIN 1,250 MG/NS 250 ML 1,250 MG/250 ML BAG 166.67 MG IVPB (06:37)
--- NOTE | 2024-04-16 06:38 | WPDHPUPDATE1 ---
History and Physical Update Update Date/Time: 04/16/24 06:38 History and Physical has been reviewed, including an updated exam of the patient. There are NO changes in the patient's condition. Risks, benefits, and alternatives have been discussed and questions answered. Patient agrees to proceed with procedure.
[2024-04-16] MEDS: TRANEXAMIC ACID 1,000MG/ISO100 1,000 MG/100 ML BAG 200 MG IVPB (07:00)
[2024-04-16] MEDS: SODIUM CHLORIDE 0.9% IV 1,000 ML 30 ML IV CONT ×2 (07:20→09:29)
--- NOTE | 2024-04-16 07:22 | WPDANESEPPF ---
Anes - Initial Pre Proc Eval Procedure: Operation Date: 04/16/24 07:30 Proposed Procedures p Right Total Knee Arthroplasty - Magdy Valera MD Date/Time: 04/16/24 07:22 Surgeon: Magdy Valera MD Pre Op Diagnosis: oa right knee Patient Data Age: 73 Gender: M Height: 1.65 m Weight: 82.4 kg Last Vital Signs Temp 36.3 C L 04/16/24 07:09 Pulse 73 04/16/24 07:09 Resp 16 04/16/24 07:09 BP 136/75 04/16/24 07:09 Pulse Ox 97 04/16/24 07:09 O2 Del Method Room Air 04/16/24 07:09 Allergies Allergy/AdvReac Type Severity Reaction Status Date / Time No Known Allergies Allergy Verified 04/16/24 06:06 Home Medications Medication Instructions Recorded Confirmed Type empagliflozin 10 mg tablet 10 mg PO DAILY 1 month #30 tabs 10/17/23 04/16/24 Rx (Jardiance) spironolactone 25 mg tablet 25 mg PO QAM 1 month #30 tabs 10/17/23 04/16/24 Rx metoprolol succinate 25 mg 25 mg PO QAM 1 month #30 tabs 11/13/23 04/16/24 Rx tablet,extended release 24 hr (Toprol XL) sodium chloride 1,000 mg soluble 2,000 mg PO TID 01/03/24 04/16/24 History tablet pantoprazole 40 mg tablet,delayed 40 mg PO QAM #90 tabs 01/17/24 04/16/24 Rx release albuterol (refill) 90 90 mcg inhalation Q4-5H PRN 01/18/24 04/16/24 History mcg/actuation aerosol inhaler Shortness Of Breath Or Wheezing ascorbic acid 90 mg-zinc oxide 50 2 cap PO DAILY 01/18/24 04/16/24 History mg capsule ginseng 500 mg capsule 500 mg PO DAILY 01/18/24 04/14/24 History magnesium 500 mg tablet 15 mg PO DAILY 01/18/24 04/16/24 History testosterone 100 mg/mL 200 mg IM WEEKLY 01/18/24 04/14/24 History intramuscular suspension vitamin B complex 1 tablet PO DAILY 01/18/24 04/16/24 History tadalafil 20 mg tablet 20 mg PO DAILY sexual activity #90 02/18/24 04/14/24 Rx tabs ipratropium bromide 21 mcg (0.03 2 spray intranasal BID #30 mL 03/17/24 04/16/24 Rx %) nasal spray montelukast 10 mg tablet 10 mg PO QHS #90 tabs 03/17/24 04/16/24 Rx furosemide 40 mg tablet See Rx Instructions .Route 03/31/24 04/16/24 Rx .COMPLEX #90 tabs sacubitril 49 mg-valsartan 51 mg 1 tablet BID 04/07/24 04/16/24 History tablet (Entresto) clobetasol 0.05 % topical cream 1 applic topical DAILY #30 grams 04/08/24 04/14/24 Rx potassium chloride 20 mEq See Rx Instructions .Route 04/11/24 04/16/24 Rx tablet,extended release .COMPLEX #90 tabs rivaroxaban 10 mg tablet (Xarelto) 10 mg PO DAILY PE Prophylaxis s/p 04/11/24 04/14/24 Rx total joint replacement #10 tabs benzonatate 100 mg capsule 200 mg PO TID PRN cough #90 caps 04/15/24 Rx Laboratory Tests 04/16/24 04/16/24 06:11 06:31 Sodium 131 L mmol/L (137-145) POC Capillary Glucose 98 mg/dl (65-105) Patient hx anesthesia problems: none Family hx anesthesia problems: none Results Review: All pre-operative results and documents have been reviewed as part of the pre-operative evaluation. [facility] Past Medical History Medical History Barretts esophagus Chronic hyponatremia Combined systolic and diastolic congestive heart failure Gastritis Gastroesophageal reflux disease GI bleed due to NSAIDs Obstructive sleep apnea Status post inspire implant. Peptic ulcer disease Single seizure Attributed to hyponatremia Surgical History Surgical History History of appendectomy History of cardiac catheterization (01/04/24) Right coronary dominant circulation, calcifications in the proximal LAD and right coronary artery but no stenotic lesions, EF 45%. History of cataract extraction with lens replacement History of knee replacement procedure of left knee History of nasal surgery History of sinus surgery History of tonsillectomy and adenoidectomy Status post repair of hydrocele Family History Family History (Reviewed 04/16/24 @ 07:22 by Ryan Paz,
[2024-04-16] MEDS: ceFAZolin 2 GM/D5W 50 ML 2 GM/50 ML BAG IVPB ×3 (07:42→23:17)
[2024-04-16] MEDS: SODIUM CHLORIDE 0.9% IV 37.7 ML, MORPHINE SULFATE INJ (*CRX) 2 MG, ROPivacaine HCL 1% 2... INFILTRATE (08:14)
--- NOTE | 2024-04-16 09:09 | P.OP_ITS ---
Procedure Note - Detailed Date of Procedure 04/16/24 Pre-op Diagnosis Osteoarthritis Right knee Post-op Diagnosis Same Procedure Performed RIGHT total knee arthroplasty Surgeon Magdy Valera MD Coping Machine Assembler Matt Anesthesia General Indications Pain and Arthritis Description of Procedure The patient was brought to operating room #7. A general anesthetic was administered. Placed on the operating table and sterilely prepped and draped in usual manner. A longitudinal incision was made. Tourniquet inflated to 300 mmHg for a total of 35 minutes. Dissection was carried down to the fascia. Medial parapatellar incision was made and the patella subluxated laterally. Patella cut from 25 to 15 mm and sized for a 34 mm button. The tibia was cut perpendicular to the long axis and femur cut in 5 degrees of valgus. A 65 femur trialed. 67 tibia was felt to fit the best. The soft tissues balanced, hemostasis obtained. All [address], 67 tibia, 65 femur, 34 mm patella, and 11 mm poly. Motion was 0-125 degrees with good stability in both flexion and extension. The wound was closed with #2 Vicryl, 2-0 Vicryl and goran. Implants [employer] Estimated Blood Loss 200 Drains No Packing No Pathology None sent Complications No immediate complications Condition Stable Disposition PACU [facility] Billing Surgery - Charge Forward: Surgery Billing ([id number] Right TKA)
[2024-04-16 09:36] LABS: Glucose Point of Care 108 mg/dl (65-105)
--- NOTE | 2024-04-16 09:37 | WPDANESPNB ---
Anes - Peripheral Nerve Block Date/Time: 04/16/24 09:37 I have discussed with the patient/family/POA the placement of a peripheral nerve block for post-operative pain management, including associated risks, benefits, complications, and side effects. Alternative methods of post-operative analgesia were detailed. Questions were solicited and answers provided to the satisfaction of the patient/family/POA. Time-Out: A pre-procedural Time-Out was completed immediately before starting the procedure and confirmed: Patient Identification, Site, Procedure, Patient Position and the Availability of Requisite Equipment. Clinical Indications: Acute post-operative pain management requested by the operative surgeon. Nerve Block Insertion Note Anes-nerve block: adductor canal right Patient position: supine Skin prep: chlorhexidine Needle: 22 gauge, stimulating, insulated echogenic needle. Needle length: 80 mm Technique: ultrasound Technique comment: done in Pacu no sedation Injectate: bupivacaine 0.5% with epi 5 mcg/ml (30ml no epi) and dexamethasone (mg) (4) Observations: tolerated well Complications: none Procedure start time:: 931 Procedure end time:: 936
--- NOTE | 2024-04-16 10:03 | SUR.PHASEI ---
Simple mask removed at 1000
--- NOTE | 2024-04-16 10:45 | ADMGEN ---
This patient, Héctor Mary, was admitted to Medical Room 254-01. Patient/family oriented to hospital policies and general routines including ID bracelet, bed and alarms, visiting hours, pain management, procedures, bathroom and other care routines, personal items, smoking policy, room service/diet, and visiting hours. Information on how to activate the Rapid Response Team has been discussed. Patient/Family are encouraged to report perceived risks to care and to ask questions if they do not understand what they are told or what they should do.
--- NOTE | 2024-04-16 12:20 | PM.IMCN ---
Assessment and Plan Assessment and plan (1) Osteoarthritis of right knee: Qualifiers: Osteoarthritis type: unspecified Qualified Code(s): M17.11 - Unilateral primary osteoarthritis, right knee Code(s): M17.11 - Unilateral primary osteoarthritis, right knee Status: Acute Assessment and Plan: Underwent a total right knee arthroplasty on 04/16 with Soto ORTA. - ambulate with assistance and up to chair - apply gel pads - use IS - neurovasc checks - see order for intervals - SCDs - resume diet - pain management - zofran PRN for nausea - monitor labs in AM - CBC and BMP - bowel regimen: docusate/senna, polyethylene glycol - maintenance fluids: NS 125 mL/hr x8 hrs - prophylactic abx - Ancef - PT/OT (2) Hyponatremia: Code(s): E87.1 - Hypo-osmolality and hyponatremia Status: Chronic Assessment and Plan: - Na 131 - chronic, follows with nephrology - monitor (3) Anemia: Qualifiers: Anemia type: iron deficiency Iron deficiency anemia type: chronic blood loss Qualified Code(s): D50.0 - Iron deficiency anemia secondary to blood loss (chronic) Code(s): D64.9 - Anemia, unspecified Status: Chronic Assessment and Plan: - hemoglobin 13.8 - monitor (4) Combined systolic and diastolic congestive heart failure: Qualifiers: Heart failure chronicity: chronic Qualified Code(s): I50.42 - Chronic combined systolic (congestive) and diastolic (congestive) heart failure Code(s): I50.40 - Unspecified combined systolic (congestive) and diastolic (congestive) heart failure Status: Acute Assessment and Plan: - currently on: Spironolactone 25 mg q.a.m. and Lasix 40 mg p.o. daily - daily weights - monitor I&Os - trend renal function (5) HTN (hypertension): Qualifiers: Hypertension type: primary hypertension Qualified Code(s): I10 - Essential (primary) hypertension Code(s): I10 - Essential (primary) hypertension Status: Chronic Assessment and Plan: - chronic, currently 138/83 - continue home medications: Entresto, metoprolol - monitor Plan Patient here for total right knee arthroplasty, done on 04/16/2024. Has chronic hyponatremia, currently 131 - continue to monitor. Has history of CHF, continue diuretics, monitor I&Os and daily weights. Home medications reviewed and resumed as appropriate. Diet: Regular GI Prophylaxis: Famotidine p.o. b.i.d. DVT Prophylaxis: SCDs Lines: Peripheral Code Status: Full code, surrogate decision maker Nacho Mary (spouse) HPI Date of Consult Consult date: 04/16/24 Requesting Physician: Magdy Valera MD Primary Care Provider: Loren Carreno MD Consult Narrative Reason for consult: Medical Managment Narrative: 73 y/o M presented here for surgical management of his [id number]-ahkt arthritis of the R knee with PMH of Mederos's esophagus, chronic hyponatremia, CHF, GERD, ANYA, PUD, and seizures secondary to hyponatremia (x1 event). The patient presents here for surgical management of his bone on bone arthritis of his right knee that is accompanied by pain. Pain has been present for multiple years. Patient has previously utilized stretching and tried conservative management in his L knee with minimal relief. He currently endorses difficulty with long distance, incorrect posture, and difficulty with stairs due to his right knee pain. Has previously undergone a total left knee arthroplasty approximately 2 months ago (February 2024) and reports being pleased with the results. Currently denies any post-operative discomfort, nausea or vomiting. Reports no recent changes to his medications. Denies recent illness or recent health concerns. Does not utilizes an assistive device at home. The patient reports no other concerns. Preop vital signs: 97.4? F, HR 73, RR 16, 136/75, and 97% on RA. Preop workup (04/08/24): no leukocyt
[2024-04-16] MEDS: FUROSEMIDE 40 MG TABLET PO (14:46)
[2024-04-16] MEDS: SACUBITRIL/VALSARTAN 49-51 MG TABLET 1 TABLET PO (16:36)
[2024-04-16] MEDS: SENNA/DOCUSATE SODIUM TABLET 2 TAB PO (16:36)
[2024-04-16] MEDS: RIVAROXABAN 10 MG TABLET PO (16:37)
[2024-04-16] MEDS: ACETAMINOPHEN 500 MG TABLET PO (18:54)
[2024-04-16] MEDS: traMADol HCL (*CRX) 50 MG TABLET PO ×2 (19:35→23:58)
[2024-04-16] MEDS: FAMOTIDINE 20 MG TABLET PO (19:35)
[2024-04-17 00:40] VITALS: BP 120/55; PULSE 78; RESP 18; TEMP 36.5; O2SAT 97
[2024-04-17] MEDS: traMADol HCL (*CRX) 50 MG TABLET PO ×2 (05:10→10:23)
[2024-04-17 05:21] LABS: Basophils Percent Auto 0.3 % (0.2-1.2); Eosinophils Percent Auto 0.4 % (0-4.4); Hematocrit 36.6 % (42.0-52.0); Hemoglobin 11.3 g/dL (14.0-18.0); Immature Granulocyte Absolute 0.04 K/mm3 (0.00-0.031); Immature Granulocyte Percent A 0.4 % (0-0.5); Lymphocytes Absolute Auto 1.64 K/mm3 (0.9-3.2); Mean Corpuscular HGB Conc 30.9 g/dl (32-36); Mean Corpuscular Hemoglobin 24.9 pg (26-34); Mean Corpuscular Volume 80.6 fl (80-100); Mean Platelet Volume 8.5 fl (7.4-10.4); Monocytes Absolute Auto 1.6 K/mm3 (0.1-0.6); Monocytes Percent Auto 17.1 % (2.6-8.5); Neutrophils Absolute Auto 5.8 K/mm3 (1.3-6.7); Neutrophils Percent Auto 63.8 % (45.5-73.1); Platelet Count Result 257 k/mm3 (150-375); Red Blood Count 4.54 M/mm3 (4.6-6.20); Red Cell Distribution Width 16.9 % (11.5-14.5); White Blood Count 9.1 K/mm3 (4.5-10.0)
[2024-04-17 05:32] LABS: Anion Gap 7 mmol/L (4-12); Blood Urea Nitrogen 16 mg/dL (9-20); Calcium 8.2 mg/dL (8.4-10.2); Carbon Dioxide 25 mmol/L (22-30); Chloride 97 mmol/L (98-107); Estimated CRCL calculation 53 ml/min; Estimated Glomerular Filt Rate > 60; Glucose 116 mg/dL (65-110); Potassium 3.7 mmol/L (3.4-5.0); Sodium 129 mmol/L (137-145)
[2024-04-17] MEDS: ceFAZolin 2 GM/D5W 50 ML 2 GM/50 ML BAG IVPB (05:48)
[2024-04-17 06:00] VITALS: BP 134/67; PULSE 79; RESP 20; TEMP 36.5; O2SAT 100
--- NOTE | 2024-04-17 06:55 | PM.PNORT ---
Progress Note: A&P Assessment and Plan (1) History of knee replacement procedure of right knee: Code(s): Z96.651 - Presence of right artificial knee joint Status: Acute Assessment and Plan: Patient underwent total knee arthroplasty right. He has done well postoperatively. Ambulate in the day anticipate discharge this. Discussed Subjective Subjective Date/Time Seen: 04/17/24 06:55 Post Op day: 1 Principal diagnosis: Right total knee arthroplasty for right knee osteoarthritis Review of Systems Musculoskeletal: Musculoskeletal: Reports arthralgias, Reports joint swelling and Reports stiffness Exam Narrative: The patient is neurologically intact. Wiggles his toes. Dressing is dry and intact. Objective Data Vital Signs Vital Signs: Vital Signs - 24 hr 04/16/24 07:09 04/16/24 09:29 04/16/24 09:40 Temperature 97.4 F L 97.9 F Pulse Rate 73 90 78 Respiratory Rate 16 10 L 12 Blood Pressure 136/75 146/79 H 148/76 H Pulse Oximetry 97 100 100 Oxygen Delivery Room Air Simple Face Mask Simple Face Mask Oxygen Flow Rate 8 8 04/16/24 09:55 04/16/24 10:00 04/16/24 10:10 Temperature 98.3 F Pulse Rate 74 75 Respiratory Rate 14 13 Blood Pressure 144/78 H 144/80 H Pulse Oximetry 100 100 100 Oxygen Delivery Simple Face Mask Room Air Room Air Oxygen Flow Rate 8 04/16/24 10:25 04/16/24 10:45 04/16/24 11:00 Temperature 98.3 F 97.6 F 97.9 F Pulse Rate 73 69 69 Respiratory Rate 14 14 22 H Blood Pressure 131/69 136/61 132/74 Pulse Oximetry 95 89 L 99 Oxygen Delivery Room Air Oxygen Flow Rate 04/16/24 12:00 04/16/24 13:30 04/16/24 15:46 Temperature 97.4 F L 98.1 F Pulse Rate 67 76 Respiratory Rate 16 16 Blood Pressure 138/83 141/72 H Pulse Oximetry 100 98 Oxygen Delivery Room Air Oxygen Flow Rate 04/16/24 20:00 04/16/24 20:20 04/17/24 00:40 Temperature 98.4 F 97.7 F Pulse Rate 76 85 78 Respiratory Rate 16 20 18 Blood Pressure 124/71 120/55 L Pulse Oximetry 98 98 97 Oxygen Delivery Room Air Oxygen Flow Rate Intake/Output Intake/Output: Intake & Output 06/10/24 06/11/24 06/12/24 06/13/24 23:59 23:59 23:59 23:59 Intake Total 2250 Balance 2250 Meds/Results Medications: Active Medications Generic Name Dose Route Start Last Admin Trade Name Freq PRN Reason Stop Dose Admin Acetaminophen 500 mg 04/16/24 10:35 04/16/24 18:54 Acetaminophen 500 Mg Tablet PO 500 mg Q6H PRN Administration Pain Rated 1-3 Hydrocodone Bitart/Acetaminophen 1 tab 04/16/24 10:35 Hydrocodone/Acetaminophen (*Crx) 5-325 Mg Tablet PO Q4H PRN Pain Rated 4-6 Hydrocodone Bitart/Acetaminophen 1 tab 04/16/24 10:35 Hydrocodone/Acetaminophen (*Crx) 10-325 Mg Tablet PO Q4H PRN Pain Rated 7-10 Albuterol 1 puff 04/16/24 10:35 Albuterol Sulfate (*Sp) Aerosol 1 Puff INHALATION Q4HRT PRN Shortness Of Breath Or Wheezing Cyclobenzaprine HCl 10 mg 04/16/24 10:35 Cyclobenzaprine Hcl 10 Mg Tablet PO Q8H PRN Spasms Diphenhydramine HCl 25 mg 04/16/24 10:35 Diphenhydramine Hcl Inj 50 Mg/Ml Vial IV PUSH Q6H PRN Itching Empagliflozin 10 mg 04/17/24 09:00 Empagliflozin 10 Mg Tablet PO DAILY MORENA Famotidine 20 mg 04/16/24 21:00 04/16/24 19:35 Famotidine 20 Mg Tablet PO 20 mg Q12HR MORENA Administration Furosemide 40 mg 04/16/24 12:40 04/16/24 14:46 Furosemide 40 Mg Tablet PO 40 mg QAM MORENA Administration Hydromorphone HCl 1 mg 04/16/24 10:35 Hydromorphone Hcl Inj (*Crx) 1 Mg/Ml Syr IV PUSH Q2H PRN Breakthrough Pain Rated 7-10 or NPO Hydromorphone HCl 0.5 mg 04/16/24 10:35 Hydromorphone Hcl Inj (*Crx) 1 Mg/Ml Syr IV PUSH Q2H PRN Breakthrough Pain Rated 4-6 or NPO Cefazolin Sodium 2 gm in 50 mls @ 100 mls/hr 04/16/24 15:00 04/17/24 05:48 Ancef 2 Gm/D5w 50 Ml IVPB 04/17/24 07:29 100 mls/hr Q8H MORENA Administ
--- NOTE | 2024-04-17 06:57 | PM.DS ---
DS: Admitting Diagnosis Discharge Date 04/17/24 Admitting Diagnosis Right knee osteoarthritis DS: Discharge Diagnosis Discharge Diagnosis (1) History of knee replacement procedure of right knee: Code(s): Z96.651 - Presence of right artificial knee joint Status: Acute (2) Osteoarthritis of right knee: Qualifiers: Osteoarthritis type: unspecified Qualified Code(s): M17.11 - Unilateral primary osteoarthritis, right knee Code(s): M17.11 - Unilateral primary osteoarthritis, right knee Status: Acute Plan Patient underwent the knee replacement surgery for right knee osteoarthritis. He has done well anticipate discharge home. DS: Summary Hospital Course Hospital Course: Patient is status post total knee replacement right. He has done well postoperatively. Followed a typical course. This may discharge today after therapy. Time Spent with Patient Time attestation: Total time spent providing and/or coordinating discharge services: Exam Narrative: Patient wiggles toes. Neurologically he is intact. Dressing intact. DS: Data Data Completed and Pending Labs on day of discharge: Labs from last 24 hours 04/17/24 04/16/24 05:02 09:33 WBC 9.1 RBC 4.54 L Hgb 11.3 L Hct 36.6 L MCV 80.6 MCH 24.9 L MCHC 30.9 L RDW 16.9 H Plt Count 257 MPV 8.5 Immature Gran % (Auto) 0.4 Neut % (Auto) 63.8 Lymph % (Auto) 18.0 L [place] % (Auto) 17.1 H Eos % (Auto) 0.4 Baso % (Auto) 0.3 Lymph # (Auto) 1.64 [place] # (Auto) 1.6 H Eos # (Auto) 0.0 Baso # (Auto) 0.0 Abs Immat Gran (auto) 0.04 H Absolute Neuts (auto) 5.8 Absolute Nucleated RBC 0.000 Nucleated RBC % 0.0 Sodium 129 L Potassium 3.7 Chloride 97 L Carbon Dioxide 25 Anion Gap 7 BUN 16 Creatinine 1.10 Estim Creat Clear Calc 53 Estimated GFR > 60 Glucose 116 H POC Capillary Glucose 108 H Calcium 8.2 L Discharge Plan Discharge Patient Disposition: Home, Self-Care Discharge Instructions: Dr. Magdy Valera M.D [address] [address] POST-OPERATIVE DISCHARGE INSTRUCTIONS TOTAL KNEE ARTHROPLASTY 1. When resting, do not rest in the chair.When resting, lie on your back, with back flat on the couch or bed, with leg elevated above heart to minimize swelling. You may put a pillow under your head. . Significant swelling could indicate a blood clot and if this occurs call the office (or go to the ER) to have a venous ultrasound. Therefore, do not rest in a chair. 2. At least five times a day spend several minutes stretching your knee into flexion while sitting in the chair and also stretching your knee out straight The abilities to bend your knee fulling and straighten your knee fully are two most important knee functions to focus on during your recovery. 3. It is ok to sit in chair to eat, use the toilet and receive a guest and to do your stretching exercises, but, sitting in a chair will cause your leg to swell. Therefore, avoid additional time sitting in the chair. and don't rest in the chair. 4. Wound Care: Nursing will give you an additional Mepilex dressing at the time of discharge. Patient to remove the dressing and apply a new Mepilex dressing at home 7 days after surgery and leave the dressing on until seen in office. 5. May shower with a Mepilex dressing in place.The water will run off the dressing. 6. Unless you are told otherwise, you may put full weight on your operated leg. Use a walker for balance and practice walking as normally as you can, ideally for a few minutes every hour while you are awake. 7. I would advise against putting ice packs on your knee incision. Ice constricts blood flow which can impar healing of the knee incision. IMPORTANT: Remember not to sit in the chair for more than 30 minutes at a time. As a rule, during the first 14 days after surgery, only sit in the chair to work on t
--- NOTE | 2024-04-17 09:05 | WPDANESPN ---
Anes - Prog Note Post-Op Date/Time: 04/17/24 09:05 Cardiovascular status: normal Respiratory status: normal Airway patency: baseline Mental status: baseline Post-Op hydration status: normal Vital Signs: Last Vital Signs Temp 36.5 C 04/17/24 06:00 Pulse 79 04/17/24 06:00 Resp 20 04/17/24 06:00 BP 134/67 04/17/24 06:00 Pulse Ox 100 04/17/24 06:00 O2 Del Method Room Air 04/16/24 20:00 O2 Flow Rate 8 04/16/24 09:55 Pain Score (VAS): 0 I/O: Intake & Output 04/16/24 04/17/24 04/17/24 23:59 07:59 15:59 Intake Total 1320 550 Output Total 600 Balance 1320 -50 Laboratory Tests 04/17/24 05:02 04/17/24 05:02 04/16/24 04/17/24 09:33 05:02 WBC 9.1 RBC 4.54 L Hgb 11.3 L Hct 36.6 L MCV 80.6 MCH 24.9 L MCHC 30.9 L RDW 16.9 H Plt Count 257 MPV 8.5 Immature Gran % (Auto) 0.4 Neut % (Auto) 63.8 Lymph % (Auto) 18.0 L [place] % (Auto) 17.1 H Eos % (Auto) 0.4 Baso % (Auto) 0.3 Lymph # (Auto) 1.64 [place] # (Auto) 1.6 H Eos # (Auto) 0.0 Baso # (Auto) 0.0 Abs Immat Gran (auto) 0.04 H Absolute Neuts (auto) 5.8 Absolute Nucleated RBC 0.000 Nucleated RBC % 0.0 Sodium 129 L Potassium 3.7 Chloride 97 L Carbon Dioxide 25 Anion Gap 7 BUN 16 Creatinine 1.10 Estim Creat Clear Calc 53 Estimated GFR > 60 Glucose 116 H POC Capillary Glucose 108 H Calcium 8.2 L Post-procedural complaints: none Patient Feedback: Patient satisfied with anesthetic care.
[2024-04-17] MEDS: FAMOTIDINE 20 MG TABLET PO (10:19)
[2024-04-17] MEDS: SENNA/DOCUSATE SODIUM TABLET 2 TAB PO (10:19)
[2024-04-17] MEDS: EMPAGLIFLOZIN 10 MG TABLET PO (10:19)
[2024-04-17 10:20] VITALS: PULSE 64
[2024-04-17] MEDS: METOPROLOL SUCCINATE EXT REL 25 MG TABCR PO (10:20)
[2024-04-17] MEDS: FUROSEMIDE 40 MG TABLET PO (10:20)
[2024-04-17] MEDS: SACUBITRIL/VALSARTAN 49-51 MG TABLET 1 TABLET PO (10:21)
[2024-04-17] MEDS: SPIRONOLACTONE 25 MG TABLET PO (10:21)
[2024-04-17] MEDS: polyethylene glycoL 3350 17 GM POWD.PACK PO (10:21)
== END 2024-04-17 12:30 | disposition home or self-care (01) ==
LOC: ANHSURGERY 05:51 → ANH2MED 10:54
PROVIDERS: Orthopaedic Surgery; PCP Family Medicine; Visit Provider Nurse Practitioner Acute Care
PROC: (CPT 27447; principal; 2024-04-16 07:30)
DX: M17.11 Unilateral primary osteoarthritis, right knee (principal); G89.18 Other acute postprocedural pain; E87.1 Hypo-osmolality and hyponatremia; D64.9 Anemia, unspecified; I11.0 Hypertensive heart disease with heart failure; I50.40 Unspecified combined systolic (congestive) and diastolic (congestive) heart failure; G47.33 Obstructive sleep apnea (adult) (pediatric); K21.9 Gastro-esophageal reflux disease without esophagitis; Z79.84 Long term (current) use of oral hypoglycemic drugs; Z79.51 Long term (current) use of inhaled steroids; Z87.891 Personal history of nicotine dependence
CPT/HCPCS: 27447; 64447; 36415; 73560; 80048; 82948; 84295; 85025; 97110; 97116; 97161; 97165; 97530; 97535; A9270; C1713; C1776; J0171; J0690; J1100; J1885; J2250; J2270; J2371; J2405; J2704; J2795; J3370; J7040

== ENCOUNTER 2024-04-28 08:00 | Outpatient (RCR) | payer MEDICARE, SELFPAY ==
--- NOTE | 2024-02-04 17:08 | OPREHPOC ---
Outpatient Therapy Plan of Care This is a Multidisciplinary Plan of Care that may contain components documented by all disciplines (PT, OT, and ST.) PT Goal 1 Goal Pt will be independent in HEP Pt will verbalize understanding of diagnosis and prognosis Target Visit 10 PT Problem 2 PT Problem #2 Pain PT Goal 1 Goal Pt will report greatest pain level at 35/10 or less to improve ADLs and activities Target Visit 10 PT Goal 2 Goal Pt will report resolution of pain to return to PLOF Target Visit 20 PT Problem 3 PT Problem #3 Impaired Range of Motion PT Goal 1 Goal Pt will demo active ROM left knee 5-90 Target Visit 10 PT Goal 2 Goal Pt will demo active ROM left knee 0-120 Target Visit 20 PT Problem 4 PT Problem #4 Edema PT Goal 1 Goal Pt will demo reduction of edema by 50% in each measurement Target Visit 10 PT Goal 2 Goal Pt will be within 1cm difference compared to RLE in all measured points Target Visit 20
--- NOTE | 2024-02-04 17:15 | PTOPEVAL1 ---
Assessment and note entered by Reena Mart, PT Evaluation Information Assessment Status Evaluation Diagnosis presence of left artificial knee Therapy Conditions pain in left knee oth. abnormalities of gait and mobility edema LLE weakness stiffness left knee joint Onset 01/27/23 Subjective Information Pt states increased swelling LLE a few days after surgery. States at home does not use 2w-w or cane, but that his balance is very good. Reports last night and this morning was tighter than a drum and it hurt Tylenol and hydrocodone is taking every 4 hours. States at times will wait longer. Last night had a hard time sleeping. Pt reports is not icing anymore. States when first got home didn't elevate, but started doing this 2-3 days and tries to all the time . Reports is laying down with leg above heart level. Pt reports wants to be at 120 degrees flexion in 4 weeks. Reported Pain Level Pain Score 5: Self Report Assessment PT Clinical Summary Pt presents 1 week post-op for left total knee replacement. Immediately he states his goal is to reach 120 degrees of flexion in 4 weeks. He also states he is not using a walker or cane at home. 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 Today pt demo's significant swelling and bruising, passive range 4-70 degrees, active range 10-70 degrees, ataxic gait with reduced jethro and guarding, and decreased strength overall. His treatment is limited due to implanted device for his sleep apnea thus electrical modalities will not be applied which may slow the process of quad reactivation and pain control. Pt has been educated thoroughly on appropriate progression of total knee replacement, that pushing to hard may result in increased inflammation, pain, and therefore slow the healing process. Pt will benefit from physical therapy to increase range, strength, correct abnormal gait, and decrease swelling as well as continue educating patient on appropriate techniques and exercises to assist in
--- NOTE | 2024-03-05 18:00 | PCPTNOTE ---
Patient did not show up for scheduled appointment this date.
--- NOTE | 2024-03-12 16:38 | PTOPDC ---
Assessment and note entered by Reena Mart, PT Assessment Status Discharge Diagnosis presence of left artificial knee Onset 01/27/23 Subjective Information Pt states he is on weight independently in the gym . States ME was happy with pt ROM and that it was improving. Does not have new goals from ortho. Pt personal goals is wants to get back to sports. Also states goals in gym are to get stronger and larger. Report she is also able to go up and down steps at the gym Reports most discomfort from lower leg swelling. Tried to use Voltaren gel on lower leg, also tried magnesium cream and skin became irritated. Is now using cortisone only. States discomfort in this area is a 5-6/10 Reported Pain Level Pain Score 0: Self Report Assessment PT Clinical Summary Pt demo's functional passive ROM, functional strength, functional flexibility and gait. Pt has throughout therapy progressed himself outside of therapist's HEP such as returning to weights at the gym. Pt does appear to have mildly unrealistic fitness goals for his age level. Pt is having his right knee done in 6 weeks and planes to rehab after this. Pt educated higher level strengthening and stability related to his fitness goals in that plan of care. As patient appears safe and functional, and to save rehab days for second knee , he is being discharged from current POC. Plan of Care PT Services Indicated No
--- NOTE | 2024-04-22 17:23 | PTOPEVAL1 ---
Assessment and note entered by Maira Dey, PT Evaluation Information Assessment Status Evaluation Diagnosis R knee pain s/p R TKR Onset 04/16/2024 Subjective Information Pt reports had surgery last Sunday, states he might have overdone PT the 2nd day post surgery when he was at the hospital because he was feeling sore and tight the next day. He states having increased difficulty with bending knee when he lays on the L side, which prompts him to lie on his back most of the time. Reports does not like to use any AD due to not wanting to depend on it, not wanting to take stronger pain medication as well. States has been compliant with the HEPs. Reported Pain Level Pain Score 7: Self Report Assessment PT Clinical Summary Pt presents to therapy with increased R knee pain s/p R TKR; demos significant limitation in joint mobility, weakness, postural and gait impairments which impact his ability to perform IADLs. Continued skilled PT is necessary to achieve pain- free functional mobility. Plan of Care Interventions Gait Training,Hot Pack/Cold Pack,Intermittent Compression,Manual Therapy,Neuro Re-education, Patient/Caregiver Education,Therapeutic Activities, Therapeutic Exercise Other Interventions vasopneumatic compression with cryotherapy PT Services Indicated Yes Treatment Frequency and 3x/week x 12 visits Duration These treatments will address the objective and functional deficits as defined above. The patient will be advanced safely and appropriately in order for the patient to progress towards his/her prior level of function. Additional exercises will be introduced and as well as a comprehensive home exercise program upon discharge, if needed, ?to ensure carryover of functional gains achieved in the clinic. This treatment plan has been reviewed and agreement upon by the patient.
--- NOTE | 2024-04-29 15:43 | PCPTNOTE ---
This treatment is being continued on visit number [id number]. Please see documentation on both accounts to view progress. Completed interventions, outcomes, and problems have been marked as Inactive to facilitate the copying of the Care plan routine for recurring accounts.
== END 2024-04-29 15:34 | disposition home or self-care (01) ==
LOC: ANHHIPT 08:00
PROVIDERS: PCP Family Medicine; Visit Provider Orthopaedic Surgery
DX: Z47.1 Aftercare following joint replacement surgery (principal); Z96.652 Presence of left artificial knee joint
CPT/HCPCS: 97014; 97016; 97110; 97116; 97140; 97161; 97162; 97530; 97750; G0283

== ENCOUNTER 2024-05-04 10:50 | Emergency (ER) | payer MEDICARE, SELFPAY ==
[2024-05-04 11:01] VITALS: BP 140/72; PULSE 81; RESP 16; TEMP 36.3; O2SAT 99
[2024-05-04 11:03] VITALS: BP 140/72; PULSE 81; RESP 16; TEMP 36.3; O2SAT 99
--- NOTE | 2024-05-04 11:13 | ED.URI ---
HPI - URI/Sore Throat General Chief Complaint: Upper Respiratory Infection Stated Complaint: Sinus Infection and Cough, Testicle Pain/Strain Time Seen by Provider: 05/04/24 10:53 Source: patient Mode of arrival: ambulatory Limitations: no limitations History of Present Illness HPI Narrative: 73-year-old male presents to [facility] with complete nasal congestion, sinus pressure and frontal headache for the past 2-3 weeks. Patient is currently on his 3rd round of antibiotics and see ENT for chronic sinus issues. Patient has been on doxycycline, amoxicillin is currently on Augmentin. Patient has also had sinus surgery in the past. Patient reports that he had recent knee replacement surgery at [facility]. Patient reports he is currently taking Augmentin as well as taking Zyrtec daily. Patient also has been taking [id number] Flonase, decongestants and Robitussin with minimal relief. Patient denies fever, body aches, chills, nausea vomiting or diarrhea. Patient also reports slight right-sided groin and testicle pain with physical therapy. Patient denies testicle swelling, erythema, or recent injury. Patient reports long history of similar symptoms with exercising. Patient reports that he sees a chiropractor for chronic back pain. MD elicited complaint: cough and rhinorrhea Onset (ago): week(s) (2-3) Able to tolerate fluids by mouth: Yes Treatments prior to arrival: cold medicine and antibiotics Related Data Home Medications Medication Instructions Recorded Confirmed sodium chloride 1,000 mg soluble 2,000 mg PO TID 01/03/24 04/29/24 tablet albuterol (refill) 90 90 mcg inhalation Q4-5H PRN 01/18/24 04/29/24 mcg/actuation aerosol inhaler Shortness Of Breath Or Wheezing ascorbic acid 90 mg-zinc oxide 50 2 cap PO DAILY 01/18/24 04/29/24 mg capsule ginseng 500 mg capsule 500 mg PO DAILY 01/18/24 04/29/24 magnesium 500 mg tablet 15 mg PO DAILY 01/18/24 04/29/24 testosterone 100 mg/mL 200 mg IM WEEKLY 01/18/24 04/29/24 intramuscular suspension vitamin B complex 1 tablet PO DAILY 01/18/24 04/29/24 sacubitril 49 mg-valsartan 51 mg 1 tablet BID 04/07/24 04/29/24 tablet (Entresto) amoxicillin 500 mg-potassium tablet 05/04/24 clavulanate 125 mg tablet Allergies Allergy/AdvReac Type Severity Reaction Status Date / Time No Known Allergies Allergy Verified 04/29/24 08:51 Review of Systems Constitutional: Constitutional: Denies chills, Denies fatigue, Denies fever(s) and Denies weakness ENT: Denies vertigo, Denies dizziness, Denies epistaxis, Reports nasal congestion and Denies sore throat Comments: Chronic sinus pressure Cardiovascular: Cardiovascular: Denies chest pain Respiratory: Respiratory: Denies chest congestion, Reports cough, Denies dyspnea and Denies wheezing Gastrointestinal: Gastrointestinal: Denies diarrhea, Denies nausea and Denies vomiting Genitourinary: Comments: Chronic Right-sided groin and testicle pain with exercise Musculoskeletal: Musculoskeletal: Denies myalgias, Denies arthralgias and Denies joint swelling Integumentary/Breasts: Skin/Breast: Denies erythema and Denies rash Neurologic: Denies dizziness and Denies headache(s) [facility] Past Medical History Medical History Barretts esophagus Chronic hyponatremia follows with nephrology - [facility] Combined systolic and diastolic congestive heart failure Gastritis Gastroesophageal reflux disease GI bleed due to NSAIDs HTN (hypertension) Obstructive sleep apnea Status post inspire implant. Peptic ulcer disease Single seizure (2020) Attributed to hyponatremia Surgical History Surgical History History of appendectomy History of cardiac catheterization (01/04/24) Right coronary dominant circulation, calcifications in the proximal LAD and right coronary artery but no stenotic lesions, EF 45%. History of
== END 2024-05-04 11:23 | disposition home or self-care (01) ==
PROVIDERS: Emergency Provider Nurse Practitioner Family; PCP Family Medicine
DX: J32.9 Chronic sinusitis, unspecified (principal); K22.70 Barrett's esophagus without dysplasia; K21.9 Gastro-esophageal reflux disease without esophagitis; I11.0 Hypertensive heart disease with heart failure; I50.40 Unspecified combined systolic (congestive) and diastolic (congestive) heart failure; G47.33 Obstructive sleep apnea (adult) (pediatric); Z96.652 Presence of left artificial knee joint
CPT/HCPCS: 99213; G0463

== ENCOUNTER 2024-05-27 08:30 | Outpatient (RCR) | payer MEDICARE, SELFPAY ==
--- NOTE | 2024-04-29 15:43 | PCPTNOTE ---
The treatment documented on this account is a continuation of the treatment documented on visit number [id number]. Please see documentation on both accounts to view progress. The Plan of Care has been transitioned and updated within the new V#. I have addressed and agree with the discipline specific Problems, Interventions, and Goals for the current certification period. Completed interventions, outcomes, and problems have been marked as Inactive to facilitate the copying of the Care plan routine for recurring accounts.
--- NOTE | 2024-05-22 14:20 | PCPTNOTE ---
Addendum: LATE NOTE ENTRY for 04/24/2024 THERA EXERCISES: 1. supine heel slides with orange glider 2. SLR x 10 cues for controlled motion in performing hip extension 3. bent knee fall outs x 20 4. hip add with ball squeezes 5. quad sets in supine 10 sec hold x 10 reps VASOPNEUMATIC COMPRESSION: Patient position: Supine Intensity settin Treatment duration: 15 Treatment Comments: R knee only Reason for treatment: edema, increase ROM, reduce pain, soft tissue tightness/spasm Comments: elevated RLE on 1 pillow for edema management Response to treatment: reduce pain, reduce edema, increased ROM MANUAL THERAPY: Soft tissue mob to ITB and hamstrings tendons, passive stretching to increase R knee flexion, passive hamstrings stretching
--- NOTE | 2024-05-27 10:55 | PTOPDC ---
Assessment and note entered by Maira Dey, PT Discharge Information Assessment Status Discharge Diagnosis R knee pain s/p R TKR ICD-10 Condition Codes (PT) M25.561 Onset 04/16/2024 Subjective Information Pt reports he was travelling and was driving, did not experience any issue on the knee. States has not been using the compression stocking because the swelling is down. Reported Pain Level Pain Score 0: Self Report Assessment PT Clinical Summary Pt demos significant improvement in ROM and is now WNL of flexion and full range of extension, gains in strength and balance and improved gait mechanics. Reports 0/10 pain at this time, compliant with HEPs. Skilled PT discontinued, recommendation for continued maintenance ROM and strengthening exercises indep. Plan of Care PT Services Indicated No
== END 2024-05-27 16:20 | disposition home or self-care (01) ==
LOC: ANHHIPT 08:30
PROVIDERS: PCP Family Medicine; Visit Provider Orthopaedic Surgery
DX: Z47.1 Aftercare following joint replacement surgery (principal); Z96.651 Presence of right artificial knee joint
CPT/HCPCS: 97014; 97016; 97110; 97116; 97140; 97161; 97530; 97750; G0283

== ENCOUNTER 2024-06-02 02:02 | Day surgery (SDC) | payer MEDICARE, SELFPAY ==
[2024-05-29 11:48] VITALS: BMI 29.2
--- NOTE | 2024-05-29 12:12 | PC.NURSE ---
Report to the Outpatient Waiting Room, entrance under the green pavilion located off [facility], at time __7:00AM on date __06/02/24 . Planned Procedure Time: __9:00AM . Time changes happen often and if your time is changed the preop area will call you the afternoon before. - You and your visitor will be asked to self-screen and do not enter if you have any COVID symptoms. - A mask is optional within the hospital at this time. Patients may have clear liquids (water, carbonated beverages, clear teas, apple juice) until 3 hours prior to surgery with a maximum of 20 ounces. - No food from midnight until time of surgery. Take the following medications with a SIP of water the morning of surgery: ____METOPROLOL. MAY USE ALBUTEROL INHALER NEEDED. DO NOT STOP ANY OF YOUR OTHER PRESCRIPTION MEDICATIONS PRIOR TO SURGERY ?EXCEPT THE FOLLOWING Medications to discontinue per physician HOLD ALL VITAMINS/SUPPLEMENTS 3 DAYS PRE-OP PER ANESTHESIA- LAST DOSE 05/29/24___ HOLD ASPIRIN PER DR DAILY. Please no make-up, nail kinyarwanda, hairspray, perfume, deodorant, or body powder the day of surgery. No jewelry (including any body piercings) or valuables the day of surgery, leave them at home. Please take a shower or bath the night before, or the morning of, surgery with an antibacterial soap. Wear comfortable, loose fitting clothing. - Jewelry must be removed prior to entering the operating room. Rings and piercings that are not removed may be cut off. - The hospital will not accept responsibility for valuables. - Please leave all valuables, including medications, at home the day of surgery. If you are going home after surgery, a licensed tank driver must drive you home. - NO public transportation without another adult if you receive anesthesia. - We recommend that an adult stay with you for 24 hours following discharge. - We also recommend that you do not drive, make important decision, drink alcoholic beverages, or take any drugs that were not prescribed by your health care provider for at least 24 hours after your discharge time. Follow any additional instructions given to you from your surgeon. If you or anyone in your household have experienced Covid symptoms in the past week, please notify your surgeon or the nurse liaison at the phone number below for possible testing. Telephone instructions given to ___PATIENT and asked if any additional questions and then verbalized understanding. Patient advised to call surgeon office or pre surgery nurse liaison [phone] if any additional questions.
[2024-06-02] VITALS (7 sets, daily range): BP systolic 128–154; BP diastolic 68–93; PULSE 70–84; RESP 12–20; TEMP 36.3–36.7; O2SAT 100
--- NOTE | 2024-06-02 06:59 | WPDHPUPDATE1 ---
History and Physical Update Update Date/Time: 06/02/24 06:59 History and Physical has been reviewed, including an updated exam of the patient. There are NO changes in the patient's condition. Risks, benefits, and alternatives have been discussed and questions answered. Patient agrees to proceed with procedure.
[2024-06-02] MEDS: LACTATED RINGERS 1,000 ML 30 ML IV CONT (07:00)
[2024-06-02] MEDS: ACETAMINOPHEN 500 MG TABLET 1000 MG PO (07:00)
--- NOTE | 2024-06-02 08:08 | P.OP_ITS ---
Procedure Note - Detailed Date of Procedure 06/02/24 Pre-op Diagnosis Chr Sinusitis Post-op Diagnosis Same Procedure Performed left frontal sinusotomy and ethmoidectomy image guided endoscopic Surgeon Gonzalez Parham MD Anesthesia General Indications chronic frontal and ethmoid sinusitis Findings Purulent mucous and polypoid mucosa in left frontoethmoid sinus and recess Description of Procedure On the date of procedure the patient was met in the preoperative area and risk and benefits of the procedure reviewed with the patient as documented in the H&P and they elected to proceed with surgery. Patient was brought back to the operating room by the anesthesia team and underwent general endotracheal anesthesia. Once an adequate plane of anesthesia was obtained a timeout was performed to assure the patient identification the patient here to be performed were correct. They were.The patient was then prepped and draped in the normal fashion for endoscopic sinus surgery. The diffusion image guidance system was calibrated and used for the entire case. Afrin-soaked pledgets were placed in the nasal cavities on the left. The entire case was performed under endoscopic visualization. Nasal endoscopy was performed at the beginning of the case. 1% lidocaine with 1:100,000 epinephrine was then injected into the root of the middle turbinate and lateral nasal wall. Attention was first directed towards the left side. The middle turbate was already medialized from previous surgery. The anterior ethmoid and agar nasi had polypoid mucosa with purulent drainage from the frontal sinus. Using a rad- 40 microdebrider, the ethmoidectomy was completed, with care to avoid injury to the skull base. The frontal sinus was entered with image guided suction and sinusotomy widened anteriorly using kerasin and hosemann punch. All infection was suctioned and removed from the sinus. No clinical evidence of CSF throughout the case. With all sinuses opened and no remaining polyp or infection appreciated, nasopore packing was placed in the ethmoid on the left. Hemostasis was ensured. At this point, the procedure was concluded. Care the patient was transferred back to the anesthesia team and the patient was awoke in the operating room and transferred back to the PACU in stable condition. Gonzalez Parham M.D. Estimated Blood Loss 15 Drains No Packing Yes (nasopore on left) Pathology None sent Complications No immediate complications Condition Stable Disposition PACU
[2024-06-02 08:11] LABS: Sodium 134 mmol/L (137-145)
--- NOTE | 2024-06-02 08:12 | WPDANESEPPF ---
Anes - Initial Pre Proc Eval Procedure: Operation Date: 06/02/24 09:00 Proposed Procedures p Image Guided Left Frontal Sinusotomy, Left Ethmoidectomy - Gonzalez Parham MD Date/Time: 06/02/24 08:12 Surgeon: Gonzalez Parham MD Pre Op Diagnosis: Chr Sinusitis Patient Data Age: 74 Gender: M Height: 1.68 m Weight: 82 kg Allergies Allergy/AdvReac Type Severity Reaction Status Date / Time No Known Allergies Allergy Verified 05/29/24 11:36 Home Medications Medication Instructions Recorded Confirmed Type empagliflozin 10 mg tablet 10 mg PO DAILY 1 month #30 tabs 10/17/23 05/29/24 Rx (Jardiance) spironolactone 25 mg tablet 25 mg PO QAM 1 month #30 tabs 10/17/23 05/29/24 Rx metoprolol succinate 25 mg 25 mg PO QAM 1 month #30 tabs 11/13/23 05/29/24 Rx tablet,extended release 24 hr (Toprol XL) sodium chloride 1,000 mg soluble 2,000 mg PO TID 01/03/24 05/29/24 History tablet albuterol (refill) 90 90 mcg inhalation Q4-5H PRN 01/18/24 05/29/24 History mcg/actuation aerosol inhaler Shortness Of Breath Or Wheezing ascorbic acid 90 mg-zinc oxide 50 2 cap PO DAILY 01/18/24 05/29/24 History mg capsule ginseng 500 mg capsule 500 mg PO DAILY 01/18/24 05/29/24 History magnesium 500 mg tablet 500 mg PO DAILY 01/18/24 05/29/24 History testosterone 100 mg/mL 200 mg IM WEEKLY 01/18/24 05/29/24 History intramuscular suspension vitamin B complex 1 tablet PO DAILY 01/18/24 05/29/24 History furosemide 40 mg tablet See Rx Instructions .Route 03/31/24 05/29/24 Rx .COMPLEX #90 tabs sacubitril 49 mg-valsartan 51 mg 1 tablet PO BID 04/07/24 05/29/24 History tablet (Entresto) tadalafil 20 mg tablet See Rx Instructions .Route 04/21/24 05/29/24 Rx .COMPLEX #90 tabs benzonatate 100 mg capsule 200 mg PO TID PRN cough #90 caps 05/21/24 05/29/24 Rx pantoprazole 40 mg tablet,delayed See Rx Instructions .Route 05/28/24 05/29/24 Rx release .COMPLEX #90 tabs aspirin 325 mg capsule 325 mg PO BID PRN Pain 05/29/24 05/29/24 History clobetasol 0.05 % topical cream 1 applic topical DAILY PRN Itching 05/29/24 05/29/24 History Laboratory Tests 06/02/24 07:57 Sodium 134 L mmol/L (137-145) Patient hx anesthesia problems: none Family hx anesthesia problems: none Results Review: All pre-operative results and documents have been reviewed as part of the pre-operative evaluation. [facility] Past Medical History Medical History Barretts esophagus Chronic hyponatremia follows with nephrology - [place] Combined systolic and diastolic congestive heart failure Gastritis Gastroesophageal reflux disease GI bleed due to NSAIDs HTN (hypertension) Obstructive sleep apnea Status post inspire implant. Peptic ulcer disease Single seizure (2020) Attributed to hyponatremia Surgical History Surgical History History of appendectomy History of cardiac catheterization (01/04/24) Right coronary dominant circulation, calcifications in the proximal LAD and right coronary artery but no stenotic lesions, EF 45%. History of cataract extraction with lens replacement History of knee replacement procedure of left knee History of nasal surgery History of sinus surgery History of tonsillectomy and adenoidectomy Status post repair of hydrocele bilateral Family History Family History Father Lung cancer Heart attack Mother Stomach cancer Social History Social History Social History: Surrogate medical decision maker: Nacho Mary, spouse. Code status: Full code. Smoking packs per day: 2 Smoking cigarettes per day: 40.0 Years smoked: 16 Smoking pack-years: 32.00 Smoking status: Former smoker Tobacco type: cigarettes Second hand tobacco smoke exposure: No Smok
[2024-06-02] MEDS: ceFAZolin 2 GM/D5W 50 ML 2 GM/50 ML BAG IVPB (08:30)
[2024-06-02] MEDS: LIDO 1%/EPINEPHRINE 1:100,000 50 ML VIAL 10 ML INFILTRATE (08:30)
[2024-06-02] MEDS: OXYMETAZOLINE HCL 0.05% NAS 15 ML BTL (*BKC) 1 SPRAY NASAL (08:30)
[2024-06-02] MEDS: MUPIROCIN 2% OINT 22 GM TUBE 1 APPLIC TOPICAL (09:07)
== END 2024-06-02 10:50 | disposition home or self-care (01) ==
PROVIDERS: Anesthesiology; PCP Family Medicine; Visit Provider Otolaryngology
PROC: (CPT 31276; principal; 2024-06-02 09:00)
DX: J32.1 Chronic frontal sinusitis (principal); J32.2 Chronic ethmoidal sinusitis; K21.9 Gastro-esophageal reflux disease without esophagitis; E87.1 Hypo-osmolality and hyponatremia; I11.0 Hypertensive heart disease with heart failure; G47.33 Obstructive sleep apnea (adult) (pediatric); I50.9 Heart failure, unspecified; K22.70 Barrett's esophagus without dysplasia; Z79.84 Long term (current) use of oral hypoglycemic drugs; Z79.51 Long term (current) use of inhaled steroids; Z79.82 Long term (current) use of aspirin; Z98.890 Other specified postprocedural states; Z98.61 Coronary angioplasty status; Z87.891 Personal history of nicotine dependence; Z80.1 Family history of malignant neoplasm of trachea, bronchus and lung; Z80.0 Family history of malignant neoplasm of digestive organs; Z82.49 Family history of ischemic heart disease and other diseases of the circulatory system
CPT/HCPCS: 31276; 31254; 61782; 36415; 84295; A9270; J0690; J1100; J2405; J2704; J3010; J7050; J7120

== ENCOUNTER 2024-08-13 01:24 | Day surgery (SDC) | payer MEDICARE, SELFPAY ==
[2024-07-25 10:33] VITALS: BMI 28.4
[2024-08-13 10:35] VITALS: BP 132/82; PULSE 82; RESP 18; TEMP 35.9; O2SAT 100
[2024-08-13] MEDS: LACTATED RINGERS 1,000 ML 150 ML IV CONT (10:57)
--- NOTE | 2024-08-13 11:38 | WPDANESEPPF ---
Anes - Initial Pre Proc Eval Procedure: Operation Date: 08/13/24 12:30 Proposed Procedures p Esophagogastroduodenoscopy - Andre Bardales MD Date/Time: 08/13/24 11:38 Surgeon: Andre Bardales MD Pre Op Diagnosis: Mederos's, GERD, Peptic ulcer Patient Data Age: 74 Gender: M Height: 1.68 m Weight: 80.9 kg Last Vital Signs Temp 96.7 F L 08/13/24 10:35 Pulse 82 08/13/24 10:35 Resp 18 08/13/24 10:35 BP 132/82 08/13/24 10:35 Pulse Ox 100 08/13/24 10:35 O2 Del Method Room Air 08/13/24 10:35 Allergies Allergy/AdvReac Type Severity Reaction Status Date / Time No Known Allergies Allergy Verified 08/13/24 10:33 Home Medications Medication Instructions Recorded Confirmed Type empagliflozin 10 mg tablet 10 mg PO DAILY 1 month #30 tabs 10/17/23 08/13/24 Rx (Jardiance) spironolactone 25 mg tablet 25 mg PO QAM 1 month #30 tabs 10/17/23 08/13/24 Rx metoprolol succinate 25 mg 25 mg PO QAM 1 month #30 tabs 11/13/23 08/13/24 Rx tablet,extended release 24 hr (Toprol XL) sodium chloride 1,000 mg soluble 2,000 mg PO TID 01/03/24 08/13/24 History tablet ascorbic acid 90 mg-zinc oxide 50 1 cap PO DAILY 01/18/24 08/13/24 History mg capsule ginseng 500 mg capsule 500 mg PO DAILY 01/18/24 08/13/24 History testosterone 100 mg/mL 200 mg IM WEEKLY 01/18/24 08/13/24 History intramuscular suspension sacubitril 49 mg-valsartan 51 mg 1 tablet PO BID 04/07/24 08/13/24 History tablet (Entresto) pantoprazole 40 mg tablet,delayed See Rx Instructions .Route 05/28/24 08/13/24 Rx release .COMPLEX #90 tabs clobetasol 0.05 % topical cream 1 applic topical DAILY PRN Itching 05/29/24 08/13/24 History furosemide 40 mg tablet See Rx Instructions .Route 06/13/24 08/13/24 Rx .COMPLEX #90 tabs azelastine 137 mcg (0.1 %) nasal 1 spray intranasal Q12H #30 mL 07/17/24 08/13/24 Rx spray empagliflozin 10 mg tablet 10 mg PO DAILY 07/25/24 08/13/24 History (Jardiance) tadalafil 20 mg tablet 20 mg PO DAILY 07/25/24 08/13/24 History Patient hx anesthesia problems: none Family hx anesthesia problems: none Results Review: All pre-operative results and documents have been reviewed as part of the pre-operative evaluation. [facility] Past Medical History Medical History Barretts esophagus Chronic [facility] [place] [facility] [place] Combined systolic and diastolic congestive heart failure Gastritis Gastroesophageal reflux disease GI bleed due to NSAIDs HTN (hypertension) Obstructive sleep apnea Status post inspire implant. Peptic ulcer disease Single seizure (2020) Attributed to hyponatremia Surgical History Surgical History History of appendectomy History of cardiac catheterization (01/04/24) Right coronary dominant circulation, calcifications in the proximal LAD and right coronary artery but no stenotic lesions, EF 45%. History of cataract extraction with lens replacement History of knee replacement procedure of left knee History of nasal surgery History of sinus surgery History of tonsillectomy and adenoidectomy Status post repair of hydrocele bilateral Family History Family History Father Lung cancer Heart attack Mother Stomach cancer Social History Social History Social History: Surrogate medical decision maker: Nacho Mary, spouse. Code status: Full code. Smoking packs per day: 2 Smoking cigarettes per day: 40.0 Years smoked: 16 Smoking pack-years: 32.00 Smoking status: Former smoker Tobacco type: cigarettes Second hand tobacco smoke exposure: No Smoking end date: 05/05/86 Alcohol intake: current Drinks per week: 5 Alcohol use details: Was a heavier drinker prior to 199
--- NOTE | 2024-08-13 11:49 | PM.HPGS ---
History of Present Illness History of Present Illness Consent: Risks, benefits, and alternatives have been discussed and questions answered. Patient agrees to proceed with procedure. Chief complaint: Pérez's, GERD, Peptic ulcer Narrative: Héctor Mary is a 74 year old male with gerd, last egd 2022 when had gastritis and anemia, no pérez's but apparently he had in the past, doing well with ppi. Review of Systems Review of Systems: All systems reviewed & are unremarkable except as noted in HPI and below PMFSH Past Medical History Medical History Barretts esophagus Chronic hyponatremia follows with nephrology - [place] Combined systolic and diastolic congestive heart failure Gastritis Gastroesophageal reflux disease GI bleed due to NSAIDs HTN (hypertension) Obstructive sleep apnea Status post inspire implant. Peptic ulcer disease Single seizure (2020) Attributed to hyponatremia Surgical History Surgical History History of appendectomy History of cardiac catheterization (01/04/24) Right coronary dominant circulation, calcifications in the proximal LAD and right coronary artery but no stenotic lesions, EF 45%. History of cataract extraction with lens replacement History of knee replacement procedure of left knee History of nasal surgery History of sinus surgery History of tonsillectomy and adenoidectomy Status post repair of hydrocele bilateral Family History Family History Father Lung cancer Heart attack Mother Stomach cancer Social History Social History Social History: Surrogate medical decision maker: Nacho Usman, spouse. Code status: Full code. Smoking packs per day: 2 Smoking cigarettes per day: 40.0 Years smoked: 16 Smoking pack-years: 32.00 Smoking status: Former smoker Tobacco type: cigarettes Second hand tobacco smoke exposure: No Smoking end date: 05/05/86 Alcohol intake: current Drinks per week: 5 Alcohol use details: Was a heavier drinker prior to 1998. Substance use: never Substance use type: does not use Do You Feel Safe in your Home?: Yes Lack of Transportation: No Lack of Food: Never True Current Housing: I Have Housing Concerned About Future Housing: No Difficulty Paying Gas/Electric Bills: No Difficulty Paying for Meds: No Currently Unemployed: No Education: Master's Degree or Higher Difficulty w/ Childcare or Family Care: No Living arrangements: with family Additional living arrangements comments: Occupation/Education: retired Additional occupation/education comments: History major Gender identity (if verbalized by the patient): Male Spiritual care concerns: No Meds Home Medications and Allergies Home Medications Medication Instructions Recorded Confirmed Type empagliflozin 10 mg tablet 10 mg PO DAILY 1 month #30 tabs 10/17/23 08/13/24 Rx (Jardiance) spironolactone 25 mg tablet 25 mg PO QAM 1 month #30 tabs 10/17/23 08/13/24 Rx metoprolol succinate 25 mg 25 mg PO QAM 1 month #30 tabs 11/13/23 08/13/24 Rx tablet,extended release 24 hr (Toprol XL) sodium chloride 1,000 mg soluble 2,000 mg PO TID 01/03/24 08/13/24 History tablet ascorbic acid 90 mg-zinc oxide 50 1 cap PO DAILY 01/18/24 08/13/24 History mg capsule ginseng 500 mg capsule 500 mg PO DAILY 01/18/24 08/13/24 History testosterone 100 mg/mL 200 mg IM WEEKLY 01/18/24 08/13/24 History intramuscular suspension sacubitril 49 mg-valsartan 51 mg 1 tablet PO BID 04/07/24 08/13/24 History tablet (Entresto) pantoprazole 40 mg tablet,delayed See Rx Instructions .Route 05/28/24 08/13/24 Rx release .COMPLEX #90 tabs clobetasol 0.05 % topical cream 1 applic topical DAILY PRN Itching
[2024-08-13 12:05] VITALS: BP 94/59; PULSE 90; RESP 18; O2SAT 98
[2024-08-13 12:15] VITALS: BP 112/67; PULSE 80; RESP 20; O2SAT 98
[2024-08-13 12:25] VITALS: BP 131/79; PULSE 70; RESP 20; O2SAT 100
== END 2024-08-13 12:40 | disposition home or self-care (01) ==
PROVIDERS: PCP Family Medicine; Referring Provider Nurse Practitioner; Visit Provider Internal Medicine Gastroenterology
PROC: 0DJ08ZZ Inspection of Upper Intestinal Tract, Via Natural or Artificial Opening Endoscopic (ICD-10-PCS; CPT 43235; principal; 2024-08-13 12:30)
DX: K29.70 Gastritis, unspecified, without bleeding (principal); K44.9 Diaphragmatic hernia without obstruction or gangrene; K21.9 Gastro-esophageal reflux disease without esophagitis; I11.0 Hypertensive heart disease with heart failure; I50.40 Unspecified combined systolic (congestive) and diastolic (congestive) heart failure; G47.33 Obstructive sleep apnea (adult) (pediatric); Z87.891 Personal history of nicotine dependence; Z87.11 Personal history of peptic ulcer disease; Z87.19 Personal history of other diseases of the digestive system; Z79.84 Long term (current) use of oral hypoglycemic drugs; Z79.890 Hormone replacement therapy
CPT/HCPCS: 43239; 88305; J2003; J2704; J7120

== ENCOUNTER 2024-09-15 10:00 | Outpatient (RCR) | payer MEDICARE, SELFPAY ==
--- NOTE | 2024-06-19 11:26 | PTOPEVAL1 ---
Assessment and note entered by Maira Dey, PT Evaluation Information Assessment Status Evaluation Diagnosis S39.012A ICD-10 Condition Codes (PT) Pain in low back M54.50,M54.15,M54.16,R26.9, Weakness R53.1 Subjective Information Pt reports pain is chronic by nature, started when he was in his later 20's due to repeated physical work and sports. Have gotten worse over the years , recently reports increased ache to lower back, feeling tingling sensation. Bending over the wrong way and coming back up, twisting back makes it worse, stretching and lying down usually relieve symptoms. Pain and discomfort to both sides of hips but mostly L > R. Tightness and soreness to B buttocks and around post hips, feeling that strength is not as much as before. Pt reports doing regular fitness exercises focusing on core exercises, lifting free weights, machines in the [employer]. He states occasionally overwork the muscles and he would feel cramps. Wiping something off the floor, picking up objects or grandkids, long drives are difficult due to the pain. Pt states his personal goal for therapy is to be able to perform recreational activities without discomfort and improve overall back and core strength, improve posture and balance as well. Assessment PT Clinical Summary Pt is a 74 yo male patient who presents to therapy with chronic back pain which he has been receiving Chiropractic treatments in the past for. He c/o acute exacerbation of the back pain which he noticed starting post R TKR, he had L TKR earlier this year as well. Demos muscle tightness to low back area and postural deficits with L shoulder lower or more inferior to R shoulder, balance deficits and gait impairments. He will greatly benefit from skilled PT to improve functional mobility without pain and discomfort. Plan of Care Interventions Electrical Stimulation,Gait Training,Hot Pack/Cold Pack,Manual Therapy,Mechanical Traction,Neuro Re- education,Patient/Caregiver Education,Therapeutic Activities,Therapeutic Exercise,Ultrasound Other Interventions IASTM, Taping PT Services Indicated Yes Treatment Frequency and 2x/wk x 20 visits Duration These treatments will address the objective and functional deficits as defined above. The patient will be advanced safely and appropriately in order for the patient to progress towards his/her prior level of function. Additional exercises will be introduced and as well as a comprehensive home exercise program upon discharge, if needed, ?to ensure carryover of functional gains achieved in the clinic. This treatment plan has been reviewed and agreement upon by the patient.
--- NOTE | 2024-07-18 19:53 | PTOPPROG ---
Assessment and note entered by Reena Mart, PT Evaluation Information Assessment Status Progress Diagnosis S39.012A ICD-10 Condition Codes (PT) Pain in low back M54.50,M54.15,M54.16,R26.9, Weakness R53.1 Subjective Information Pt states he is doing better, in everything Reports is more aware of alignment, body position and control. If feels the stress in his back, stops and changes his activity. Tightness in the hips is also better. Not putting as much strain Picking up items off the floor and grandkids I feel the pull in the back Assessment PT Clinical Summary Pt has attended therapy consistently for lower back pain. Today was thoroughly educated on appropriate alignment with bending and lifting as related to hip mobility and lumbar stability. Pt khoa's improved AROM lumbar overall though still has discomfort with some planes, reports lower pain ratings, and decreased his Oswestry Disability score by 50%. He has made progress in all goals though has not completed his therapy goals as of yet. He would benefit from cont therapy to continue progressing, educate pt on appropriate alignments and performance of fitness and strengthening activities, and meet pt goals. Plan of Care Interventions Electrical Stimulation,Gait Training,Hot Pack/Cold Pack,Manual Therapy,Mechanical Traction,Neuro Re- education,Patient/Caregiver Educati,Therapeutic Activities,Therapeutic Exercise,Ultrasound Other Interventions IASTM, Taping PT Services Indicated Yes Treatment Frequency and Cont 1-2x weekly x 10 visits Duration These treatments will address the objective and functional deficits as defined above. The patient will be advanced safely and appropriately in order for the patient to progress towards his/her prior level of function. Additional exercises will be introduced and as well as a comprehensive home exercise program upon discharge, if needed, ?to ensure carryover of functional gains achieved in the clinic. This treatment plan has been reviewed and agreement upon by the patient.
--- NOTE | 2024-08-19 17:18 | PCPTNOTE ---
Patient called and informed clinic he is unable to attend therapy due to conflict with a sleep study schedule.
--- NOTE | 2024-09-02 16:51 | PTOPPROG ---
Assessment and note entered by Maira Dey, PT Re-Eval Information Assessment Status Progress Diagnosis S39.012A ICD-10 Condition Codes (PT) Pain in low back M54.50,M54.15,M54.16,R26.9, Weakness R53.1 Subjective Information Pt reports have been waking in the middle of the night lately (last 3 days) due to generalized pain and hip area. His gives him massages and it helps relieve pain. Reports more morning stiffness lately and some pain upon getting up in the morning. States has been doing more at the gym and feels like it might be contributing to the pain. Assessment PT Clinical Summary Pt received a total of 15 treatment sessions and has shown good progress with strength and mobility . States compliant with HEPs, His test and measures demos improvement with ROM values and balance. However he recently had a flare up of back pain that impacted his functional mobility and quality of sleep. Pt will benefit from continued skilled PT to focus on neuro re- education and modalities to improve body awareness and reduce pain and stability. Plan of Care Interventions Check Out for Orthotic/Pr,Electrical Stimulation, Gait Training,Hot Pack/Cold Pack,Manual Therapy, Mechanical Traction,Neuro Re-education,Patient/ Caregiver Educati,Therapeutic Activities, Therapeutic Exercise,Ultrasound,Other Other Interventions IASTM, Taping PT Services Indicated Yes Treatment Frequency and 1-2x/wk x 8 visits Duration These treatments will address the objective and functional deficits as defined above. The patient will be advanced safely and appropriately in order for the patient to progress towards his/her prior level of function. Additional exercises will be introduced and as well as a comprehensive home exercise program upon discharge, if needed, ?to ensure carryover of functional gains achieved in the clinic. This treatment plan has been reviewed and agreement upon by the patient.
--- NOTE | 2024-09-12 09:42 | PTOPREEVAL ---
Assessment and note entered by Maiar Dey, PT Re-Evaluation Information Assessment Status Progress Diagnosis S39.012A ICD-10 Condition Codes (PT) Pain in low back M54.50,M54.15,M54.16,R26.9, Weakness R53.1 Subjective Information Pt reports have been waking in the middle of the night lately (last 3 days) due to generalized pain and hip area. His gives him massages and it helps relieve pain. Reports more morning stiffness lately and some pain upon getting up in the morning. States has been doing more at the gym and feels like it might be contributing to the pain. Assessment PT Clinical Summary Pt received a total of 15 treatment sessions and has shown good progress with strength and mobility . States compliant with HEPs, His test and measures demos improvement with ROM values and balance. However he recently had a flare up of back pain that impacted his functional mobility and quality of sleep. Pt will benefit from continued skilled PT to focus on neuro re- education to improve body awareness and stability, modalities to address pain, education to reduce risk for further injuries. Plan of Care Interventions Check Out for Orthotic/Pr,Electrical Stimulation, Gait Training,Hot Pack/Cold Pack,Manual Therapy, Mechanical Traction,Neuro Re-education,Patient/ Caregiver Education,Therapeutic Activities, Therapeutic Exercise,Ultrasound,Other Other Interventions IASTM, Taping PT Services Indicated Yes Treatment Frequency and 1-2x/wk x 8 visits Duration These treatments will address the objective and functional deficits as defined above. The patient will be advanced safely and appropriately in order for the patient to progress towards his/her prior level of function. Additional exercises will be introduced and as well as a comprehensive home exercise program upon discharge, if needed, ?to ensure carryover of functional gains achieved in the clinic. This treatment plan has been reviewed and agreement upon by the patient.
== END 2024-09-15 23:59 | disposition home or self-care (01) ==
LOC: ANHHIPT 10:00
PROVIDERS: PCP Family Medicine; Visit Provider Orthopaedic Surgery
DX: S39.012D Strain of muscle, fascia and tendon of lower back, subsequent encounter (principal)
CPT/HCPCS: 97012; 97014; 97035; 97110; 97112; 97140; 97161; 97530; 97750; G0283

== ENCOUNTER 2024-10-23 14:15 | Outpatient (RCR) | payer MEDICARE, SELFPAY ==
--- NOTE | 2024-10-09 12:53 | PCPTNOTE ---
Pt did not show up on his appointment time and said he forgot. marked No Show for therapy today.
--- NOTE | 2024-11-03 12:58 | PTOPDC ---
Assessment and note entered by Maira Dey, PT Discharge Information Assessment Status Discharge Diagnosis S39.012A ICD-10 Condition Codes (PT) Abnormalities of gait and mobility R26.9,Weakness R53.1,Pain in low back M54.50,Radiculopathy, thoracolumbar region M54.15,Radiculopathy, lumbar region M54.16 Subjective Information Pt reports feeling much better, grateful for the TENS unit he got which has helped albeatrice with not only the back pain and weakness but also his neck stiffness and pain. 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 Assessment PT Clinical Summary Pt reports therapy has helped albeatrice with the back pain, demos improved ROM and functional strength, noted improved ability to perform squats and increased hip mobility during walking on various surfaces and stairs. Continue to demo decreased dynamic balance but is able to maintain 1 leg standing upto 10 seconds each LE. Pt also reports he is agreeable to DC today; He states compliant with HEPs and is actively working out and stretching daily at the gym. Skilled PT discontinued at this time. Plan of Care PT Services Indicated No
== END 2024-11-03 14:33 | disposition home or self-care (01) ==
LOC: ANHHIPT 14:15
PROVIDERS: PCP Family Medicine; Visit Provider Orthopaedic Surgery
DX: S39.012D Strain of muscle, fascia and tendon of lower back, subsequent encounter (principal)
CPT/HCPCS: 97012; 97014; 97110; 97112; 97140; 97530; 97750; G0283